=== PATIENT | male | born 1950 | race Caucasian/White ===

== ENCOUNTER → 2018-11-13 | Outpatient (CLI) | payer BC ==
[2018-11-13 09:43] LABS: HGB 15.4 gm/dL (13.0-17.5); MCH 30.2 pg (25.0-35.0); MCHC 32.8 g/dL (31.0-37.0); Mean Platelet Volume 6.2; Platelet Count 218 k/uL (150-450); RBC 5.11 m/uL (4.30-5.90); RDW 13.8 % (11.5-15.5); WBC 7.7 k/uL (3.8-10.6)
[2018-11-13 09:51] LABS: Appearance,Urine Clear (Clear); Bilirubin,Urine Negative (Negative); Blood,Urine Negative (Negative); Color,Urine Yellow; Glucose,Urine (UA) Negative (Negative); Ketones,Urine Negative (Negative); Leukocyte Esterase,Urine Negative (Negative); Nitrite,Urine Negative (Negative); PH, Urine 5.5 (5.0-8.0); Protein,Urine Negative (Negative); Specific Gravity,Urine 1.016 (1.001-1.035); Urobilinogen,Urine <2.0 mg/dL (<2.0)
[2018-11-13 17:46] LABS: Albumin 4.6 g/dL (3.80-4.90); Albumin/Globulin Ratio 2.42 (1.60-3.17); Anion Gap 10.8 mmol/L (4.00-12.00); Calcium 9.4 mg/dL (8.7-10.3); Carbon Dioxide 21.2 mmol/L (21.6-31.8); Globulin 1.9 g/dL (1.6-3.3); LDL Cholesterol,Calculated 72.8 mg/dL (0.0-131.0); Potassium 4.1 mmol/L (3.5-5.5); Total Bilirubin 0.7 mg/dL (0.2-1.2); Total Protein 6.5 g/dL (6.2-8.2); Uric Acid 9.2 mg/dL (3.7-8.7); VLDL Calculation 32.2 mg/dL (5.00-40.00)
== END | disposition home or self-care (01) ==
LOC: LABWHC1 08:41
PROVIDERS: ATTEND Family Medicine
DX: Z00.01 Encounter for general adult medical examination with abnormal findings (principal); E29.1 Testicular hypofunction; M10.9 Gout, unspecified
CPT/HCPCS: 36415; 80053; 80061; 81003; 84153; 84402; 84403; 84550; 85027

== ENCOUNTER 2019-03-23 17:35 | Observation (INO) | payer BC, MEDICARE ==
[2019-03-23] MEDS ORDERED: MAGNESIUM SULFATE-D5W PMX 1 GM in DEXTROSE/WATER 1 100ML.BAG IVPB ONE (18:06)
--- NOTE | 2019-03-23 18:52 | XR ---
EXAMINATION TYPE: XR chest 2V DATE OF EXAM: 03/23/2019 COMPARISON: NONE HISTORY: Irregular heartbeat TECHNIQUE: Frontal and lateral views of the chest are obtained. FINDINGS: There is no heart failure nor confluent pneumonic infiltrate. There is slight coarsening o f interstitial markings. There are chest leads. There is spurring in the thoracic spine. There is no pleural effusion. IMPRESSION: Minimal pulmonary fibrotic changes. No acute lung disease. No heart failure.
[2019-03-23 18:54] LABS: Basophils % (A) 0 %; Eosinophils % (A) 0 %; HCT 41.8 % (39.0-53.0); HGB 14.2 gm/dL (13.0-17.5); Lymphocytes % (A) 15 %; MCH 31.9 pg (25.0-35.0); MCV 93.9 fL (80.0-100.0); Mean Platelet Volume 6.3; Monocytes # (A) 0.8 k/uL (0-1.0); Monocytes % (A) 6 %; Neutrophils % (A) 76 %; Platelet Count 228 k/uL (150-450); RBC 4.45 m/uL (4.30-5.90); RDW 13.6 % (11.5-15.5); WBC 13.1 k/uL (3.8-10.6)
[2019-03-23 19:05] LABS: Albumin 4.1 g/dL (3.5-5.0); Calcium 9.3 mg/dL (8.4-10.2); Magnesium 2.1 mg/dL (1.6-2.3); Partial Thromboplastin Time 24.4 sec (22.0-30.0); Potassium 4.2 mmol/L (3.5-5.1); Prothrombin Time 10.5 sec (9.0-12.0); Total Bilirubin 0.4 mg/dL (0.2-1.3); Total Protein 6.7 g/dL (6.3-8.2)
--- NOTE | 2019-03-23 19:39 | ED ---
Arrhythmia/Palpitations HPI - General Chief Complaint: Arrhythmia/Palpitations Stated Complaint: Irregular Heartbeat Time Seen by Provider: 03/23/19 17:45 Source: patient Mode of arrival: ambulatory Limitations: no limitations - History of Present Illness Initial Comments: The patient is a 69 year old male who presents emergency room with reported chest palpitations. He states they been going on for the past day. He has been on steroids and cough medicine at home because of the an upper respiratory infection. He also states he's suppose to play in a gold tournament this weekend and wanted to get his arthritis "under control". He is concerned that these medications have caused him to have the palpitations. He went into an urgent care where they performed an EKG. They found the patient to be in A. fib. They sent him directly into the emergency room. The patient reports to a history of A. fib once before. States his tarper called it holiday heart syndrome. He was on vacation with friends when he states he "downed a bottle of Baileys". He then had the episode of atrial fibrillation which was transient. He states he was never placed on anticoagulation. He denies associated chest pain. No shortness of breath. Denies a history of coronary disease. Denies ripping or tearing sensation to his back. No nausea, vomiting or diaphoresis. No abdominal pain or changes in his bowel or bladder habits. No fevers or chills. There are no other alleviating, precipitating or modifying factors - Related Data Home Medications Medication Instructions Recorded Confirmed Allopurinol [Zyloprim] 300 mg PO DAILY 03/23/19 03/23/19 Celecoxib [CeleBREX] 200 mg PO DAILY 03/23/19 03/23/19 Methocarbamol [Robaxin] 500 mg PO DAILY 03/23/19 03/23/19 Omeprazole 20 mg PO DAILY 03/23/19 03/23/19 Rosuvastatin Calcium [Crestor] 10 mg PO DAILY 03/23/19 03/23/19 buPROPion HCL [Wellbutrin XL] 150 mg PO BID 03/23/19 03/23/19 Previous Rx's Medication Instructions Recorded Apixaban [Eliquis] 5 mg PO BID #60 tab 03/25/19 Metoprolol Tartrate [Lopressor] 25 mg PO BID #60 tab 03/25/19 Allergies Allergy/AdvReac Type Severity Reaction Status Date / Time Iodinated Contrast- Oral and Allergy Anaphylaxis Verified 03/23/19 18:48 IV Dye Review of Systems ROS Statement: Those systems with pertinent positive or pertinent negative responses have been documented in the HPI. ROS Other: All systems not noted in ROS Statement are negative. Past Medical History Past Medical History: Hyperlipidemia History of Any Multi-Drug Resistant Organisms: None Reported Past Surgical History: No Surgical Hx Reported Past Psychological History: No Psychological Hx Reported Smoking Status: Former smoker Past Alcohol Use History: None Reported Past Drug Use History: None Reported General Exam Limitations: no limitations General appearance: alert, in no apparent distress Head exam: Present: atraumatic, normocephalic, normal inspection Eye exam: Present: normal appearance, PERRL, EOMI. Absent: scleral icterus, conjunctival injection, periorbital swelling ENT exam: Present: normal exam, mucous membranes moist Neck exam: Present: normal inspection. Absent: tenderness, meningismus, lymphadenopathy Respiratory exam: Present: normal lung sounds bilaterally. Absent: respiratory distress, wheezes, rales, rhonchi, stridor Cardiovascular Exam: Present: tachycardia, irregular rhythm, normal heart sounds. Absent: systolic murmur, diastolic murmur, rubs, gallop, clicks GI/Abdominal exam: Present: soft, normal bowel sounds. Absent: distended, tenderness, guarding, rebound, rigid Extremities exam: Present: normal inspection, full ROM, normal capillary refill. Absent: tenderness, pedal edema, joint swelling, calf tenderness Back exam: Present: normal inspection Neurological exam: Present: alert, oriented X3, CN II-XII intact Psychiatric exam: Present: normal affect, normal mood Skin exam: Present: warm, dry, intact, normal color. Absent: rash Course Vital Signs 03/23/19 03/23/19 03/23/19 17:39 18:50 19:10 Temperature 97.8 F Pulse Rate 47 L 80 89 Respiratory 18 14 10 L Rate Blood Pressure 153/77 132/107 O2 Sat by Pulse 96 96 97 Oximetry 03/23/19 03/23/19 03/23/19 19:50 20:20 21:30 Temperature Pulse Rate 87 105 H 85 Respiratory 11 L 11 L 17 Rate Blood Pressure 141/121 126/84 108/82 O2 Sat by Pulse 95 96 97 Oximetry EKG Findings - EKG Comments: EKG Findings:: EKG demonstrates atrial fibrillation with a controlled ventricular rate. Rate of 92. QRS 104. QTC 457. There are no acute ST segment elevations. Medical Decision Making - Medical Decision Making Upon arrival the patient is placed into room 1. He is hooked up to continuous pulse ox and cardiac monitoring. A 12-lead EKG is performed on the patient which demonstrates atrial fibrillation with a controlled ventricular response. Peripheral IV was established. I did provide him with 2 g of magnesium. Laboratory studies were conducted. The patient was sent over for chest x-ray. Upon return of the results I did discuss them with the patient. I did recommend heparinizing the patient for which he did agree. He has no contraindications to heparinization. I did recommend hospital admission for evaluation by cardiology. The patient did agree to this. He was admitted to Dr. Akhtar, who is covering for Dr. Chapa. I did call and discuss the case with him and he did accept admission. Bridging orders are placed. The patient remained in stable condition and was transported to floor - Lab Data Result diagrams: 03/25/19 06:43 03/25/19 06:43 Lab Results 03/23/19 03/23/19 03/23/19 Range/Units 18:20 18:20 18:20 WBC 13.1 H (3.8-10.6) k/uL RBC 4.45 (4.30-5.90) m/uL Hgb 14.2 (13.0-17.5) gm/dL Hct 41.8 (39.0-53.0) % MCV 93.9 (80.0-100.0) fL MCH 31.9 (25.0-35.0) pg MCHC 34.0 (31.0-37.0) g/dL RDW 13.6 (11.5-15.5) % Plt Count 228 (150-450) k/uL Neutrophils % 76 % Lymphocytes % 15 % Monocytes % 6 % Eosinophils % 0 % Basophils % 0 % Neutrophils # 10.0 H (1.3-7.7) k/uL Lymphocytes # 2.0 (1.0-4.8) k/uL Monocytes # 0.8 (0-1.0) k/uL Eosinophils # 0.0 (0-0.7) k/uL Basophils # 0.0 (0-0.2) k/uL PT 10.5 (9.0-12.0) sec INR 1.0 (<1.2) APTT 24.4 (22.0-30.0) sec Sodium 140 (137-145) mmol/L Potassium 4.2 (3.5-5.1) mmol/L Chloride 109 H (98-107) mmol/L Carbon Dioxide 21 L (22-30) mmol/L Anion Gap 10 mmol/L BUN 28 H (9-20) mg/dL Creatinine 1.45 H (0.66-1.25) mg/dL Est GFR (CKD-EPI)AfAm 56 (>60 ml/min/1.73 sqM) Est GFR (CKD-EPI)NonAf 48 (>60 ml/min/1.73 sqM) Glucose 105 H (74-99) mg/dL Calcium 9.3 (8.4-10.2) mg/dL Magnesium 2.1 (1.6-2.3) mg/dL Total Bilirubin 0.4 (0.2-1.3) mg/dL AST 36 (17-59) U/L ALT 37 (21-72) U/L Alkaline Phosphatase 71 (38-126) U/L Troponin I (0.000-0.034) ng/mL Total Protein 6.7 (6.3-8.2) g/dL Albumin 4.1 (3.5-5.0) g/dL TSH 1.120 (0.465-4.680) mIU/L 03/23/19 Range/Units 18:20 WBC (3.8-10.6) k/uL RBC (4.30-5.90) m/uL Hgb (13.0-17.5) gm/dL Hct (39.0-53.0) % MCV (80.0-100.0) fL MCH (25.0-35.0) pg MCHC (31.0-37.0) g/dL RDW (11.5-15.5) % Plt Count (150-450) k/uL Neutrophils % % Lymphocytes % % Monocytes % % Eosinophils % % Basophils % % Neutrophils # (1.3-7.7) k/uL Lymphocytes # (1.0-4.8) k/uL Monocytes # (0-1.0) k/uL Eosinophils # (0-0.7) k/uL Basophils # (0-0.2) k/uL PT (9.0-12.0) sec INR (<1.2) APTT (22.0-30.0) sec Sodium (137-145) mmol/L Potassium (3.5-5.1) mmol/L Chloride (98-107) mmol/L Carbon Dioxide (22-30) mmol/L Anion Gap mmol/L BUN (9-20) mg/dL Creatinine (0.66-1.25) mg/dL Est GFR (CKD-EPI)AfAm (>60 ml/min/1.73 sqM) Est GFR (CKD-EPI)NonAf (>60 ml/min/1.73 sqM) Glucose (74-99) mg/dL Calcium (8.4-10.2) mg/dL Magnesium (1.6-2.3) mg/dL Total Bilirubin (0.2-1.3) mg/dL AST (17-59) U/L ALT (21-72) U/L Alkaline Phosphatase (38-126) U/L Troponin I 0.030 (0.000-0.034) ng/mL Total Protein (6.3-8.2) g/dL Albumin (3.5-5.0) g/dL TSH (0.465-4.680) mIU/L Disposition Clinical Impression: Atrial fibrillation Disposition: ADMITTED IP TO THIS HOSP Condition: Stable Is patient prescribed a controlled substance at d/c from ED?: No Decision to Admit Reason: Admit from EC Decision Date: 03/23/19 Decision Time: 19:49
[2019-03-23] MEDS ORDERED: HEPARIN SODIUM,PORCINE 5,000 UNIT/ML 1 ML VIAL IV PRN (19:47)
[2019-03-23] MEDS ORDERED: HEPARIN SODIUM,PORCINE 5,000 UNIT/ML 1 ML VIAL IV ONE (19:47)
[2019-03-23] MEDS ORDERED: NALOXONE 0.4 MG/ML 1 ML VIAL IV PRN (19:49)
[2019-03-23] MEDS ORDERED: HEPARIN SOD,PORK IN 0.45% NACL 25,000 UNIT in 0.45% NACL 1 250ML.BAG IV SCH (20:00)
[2019-03-23 22:44] VITALS: BMI 34.0
[2019-03-23] MEDS: buPROPion XL 150 MG TAB.ER.24H PO SCH (22:49)
[2019-03-24 07:30] LABS: Basophils % (A) 0 %; Eosinophils # (A) 0.1 k/uL (0-0.7); Eosinophils % (A) 1 %; HCT 41.7 % (39.0-53.0); HGB 13.6 gm/dL (13.0-17.5); Lymphocytes # (A) 3.3 k/uL (1.0-4.8); Lymphocytes % (A) 32 %; MCH 30.7 pg (25.0-35.0); MCHC 32.5 g/dL (31.0-37.0); MCV 94.5 fL (80.0-100.0); Mean Platelet Volume 6.6; Monocytes # (A) 0.7 k/uL (0-1.0); Monocytes % (A) 7 %; Neutrophils # (A) 5.9 k/uL (1.3-7.7); Neutrophils % (A) 58 %; Platelet Count 207 k/uL (150-450); RBC 4.42 m/uL (4.30-5.90); RDW 13.7 % (11.5-15.5); WBC 10.2 k/uL (3.8-10.6)
[2019-03-24] MEDS: ALLOPURINOL 300 MG TAB PO SCH (08:14)
[2019-03-24] MEDS: buPROPion XL 150 MG TAB.ER.24H PO SCH ×2 (08:14→20:12)
[2019-03-24] MEDS: PANTOPRAZOLE 40 MG TABLET PO SCH (08:14)
[2019-03-24] MEDS: ATORVASTATIN 20 MG TAB PO SCH (08:14)
[2019-03-24] MEDS: METHOCARBAMOL 500 MG TAB PO SCH (08:15)
--- NOTE | 2019-03-24 08:20 | P.CRDCN ---
History of Present Illness Consult date: 03/24/19 Requesting physician: Karyn Akhtar Consult reason: atrial fibrillation Chief complaint: A. fib History of present illness: This is a pleasant 69-year-old gentleman who follows regularly with Dr. Susie Schwab in the office. He has a known history of hyperlipidemia, nondiabetic, no hypertension, he denies smoking at present but he does have a history of smoking, patient also has a history of one episode of atrial fibrillation about 14 years ago, at which time he states he had a week and a significant drinking. He converted to sinus rhythm and has not had any problems since. According to the patient, he's been dealing with a cold and upper chest infection for the past one to 2 weeks, he is currently on a Medrol Dosepak, he also took an albuterol inhaler and has been taking some cold medications at home. Patient states that he had noticed palpitations intermittently, which is why he came to the hospital for further evaluation and treatment. The patient states that he played in a golf tournament this weekend, he denies any diaphoresis or shortness of breath, but does state that he noticed palpitations off and on. On presentation here his EKG showed atrial fibrillation with a controlled ventricular response. At present the patient states he does not feel any palpitations however he does continue at this time to be in atrial fibrillation. He states that he does drink at least 2 alcoholic beverages per day and has not drank any more recently than his usual. His chest x-ray on presentation here showed minimal pulmonary fibrotic change with no acute lung disease and no heart failure. I pressure on presentation here was 150/70, heart rate in the 90s, 96% on room air. Blood pressure this morning 132/80, heart rate in the 60s, temperature 98.2. 96% on room air. White blood cell count on arrival 13.2, 10.2 this morning, hemoglobin 13.6, platelet count 207. Sodium 140, potassium 4.2, BUN 28 and creatinine 1.4. Troponin 0.030, 0.028, TSH 1.1. At the time of my examination this morning, patient's main complaint is that he is extremely tired, he states he did not sleep at all through the night last night. Past Medical History Past Medical History: Hyperlipidemia Additional Past Medical History / Comment(s): afib 15 years ago, was able to covert with medication History of Any Multi-Drug Resistant Organisms: None Reported Past Surgical History: No Surgical Hx Reported Past Anesthesia/Blood Transfusion Reactions: No Reported Reaction Past Psychological History: No Psychological Hx Reported Smoking Status: Former smoker Past Alcohol Use History: None Reported Past Drug Use History: None Reported Medications and Allergies Home Medications Medication Instructions Recorded Confirmed Type Allopurinol [Zyloprim] 300 mg PO DAILY 03/23/19 03/23/19 History Celecoxib [CeleBREX] 200 mg PO DAILY 03/23/19 03/23/19 History Methocarbamol [Robaxin] 500 mg PO DAILY 03/23/19 03/23/19 History Omeprazole 20 mg PO DAILY 03/23/19 03/23/19 History Rosuvastatin Calcium [Crestor] 10 mg PO DAILY 03/23/19 03/23/19 History buPROPion HCL [Wellbutrin XL] 150 mg PO BID 03/23/19 03/23/19 History methylPREDNISolone [Medrol Dose See Taper PO DIRECTED 03/23/19 03/23/19 History Pack] Allergies Allergy/AdvReac Type Severity Reaction Status Date / Time Iodinated Contrast- Oral and Allergy Anaphylaxis Verified 03/23/19 18:48 IV Dye Physical Exam Vitals: Vital Signs Temp Pulse Pulse Resp BP BP Pulse Ox 03/24/19 04:00 98.2 F 82 18 132/81 96 03/23/19 23:22 92 18 03/23/19 23:20 98.0 F 67 18 130/87 97 03/23/19 22:34 98.0 F 67 18 130/87 97 03/23/19 21:30 85 17 108/82 97 03/23/19 20:20 105 H 11 L 126/84 96 03/23/19 19:50 87 11 L 141/121 95 03/23/19 19:10 89 10 L 132/107 97 03/23/19 18:50 80 14 96 03/23/19 17:39 97.8 F 47 L 18 153/77 96 Intake and Output 03/23/19 03/24/19 03/24/19 22:59 06:59 14:59 Intake Total 60 62.814 Balance 60 62.814 Intake: Amount of Fluid Infused ( 60 ml) Intake, IV Titration 62.814 Amount Heparin Sod,Pork in 0.45% 62.814 NaCl 25,000 unit In 0.45 % NaCl 1 250ml.bag @ 8.7 UNITS/KG/HR 9.866 mls/hr IV .Q24H [facility] Rx#: [id number] Other: Voiding Method Toilet # Voids 1 1 Weight 113.398 kg 116.9 kg PHYSICAL EXAMINATION: GENERAL: 69-year-old gentleman in no acute distress at the time of my examination HEENT: Head is atraumatic, normocephalic. Pupils equal, round. Sclera anicteric. Conjunctiva are clear. Mucous membranes of the mouth are moist. Neck is supple. There is no elevated jugular venous pressure. No carotid bruit is heard. HEART EXAMINATION: Heart S1 and S2 irregularly irregular CHEST EXAMINATION: Lungs are clear to auscultation and precussion. No chest wall tenderness is noted on palpation or with deep breathing. ABDOMEN: Soft, nontender. Bowel sounds are heard. No organomegaly noted. EXTREMITIES: 2+ peripheral pulses with no evidence of peripheral edema and no calf tenderness noted. NEUROLOGIC patient is awake, alert and oriented 3 . Results 03/24/19 06:20 03/23/19 18:20 Cardiac Enzymes 03/23/19 03/23/19 03/24/19 Range/Units 18:20 18:20 01:12 AST 36 (17-59) U/L Troponin I 0.030 0.028 (0.000-0.034) ng/mL Coagulation 03/23/19 03/24/19 Range/Units 18:20 01:12 PT 10.5 (9.0-12.0) sec APTT 24.4 32.6 H (22.0-30.0) sec CBC 03/23/19 03/24/19 Range/Units 18:20 06:20 WBC 13.1 H 10.2 (3.8-10.6) k/uL RBC 4.45 4.42 (4.30-5.90) m/uL Hgb 14.2 13.6 (13.0-17.5) gm/dL Hct 41.8 41.7 (39.0-53.0) % Plt Count 228 207 (150-450) k/uL Comprehensive Metabolic Panel 03/23/19 Range/Units 18:20 Sodium 140 (137-145) mmol/L Potassium 4.2 (3.5-5.1) mmol/L Chloride 109 H (98-107) mmol/L Carbon Dioxide 21 L (22-30) mmol/L BUN 28 H (9-20) mg/dL Creatinine 1.45 H (0.66-1.25) mg/dL Glucose 105 H (74-99) mg/dL Calcium 9.3 (8.4-10.2) mg/dL AST 36 (17-59) U/L ALT 37 (21-72) U/L Alkaline Phosphatase 71 (38-126) U/L Total Protein 6.7 (6.3-8.2) g/dL Albumin 4.1 (3.5-5.0) g/dL Current Medications Generic Name Dose Route Start Last Admin Trade Name Freq PRN Reason Stop Dose Admin Allopurinol 300 mg 03/24/19 09:00 Zyloprim PO DAILY [facility] Atorvastatin Calcium 20 mg 03/24/19 09:00 Lipitor PO DAILY [facility] Bupropion HCl 150 mg 03/23/19 21:00 03/23/19 22:49 Wellbutrin Xl PO Not Given BID [facility] Heparin Sodium (Porcine) 0 unit 03/23/19 19:47 Heparin IV PER PROTOCOL PRN Low PTT Protocol Heparin Sodium/Sodium Chloride 250 mls @ 9.866 mls/hr 03/23/19 20:00 03/24/19 02:38 25,000 unit/ Sodium Chloride IV 11.7 units/kg/hr .Q24H [facility] 13.268 mls/hr Titration Protocol 8.7 UNITS/KG/HR Methocarbamol 500 mg 03/24/19 09:00 Robaxin PO DAILY [facility] Naloxone HCl 0.2 mg 03/23/19 19:49 Narcan IV Q2M PRN Opioid Reversal Pantoprazole Sodium 40 mg 03/24/19 09:00 Protonix PO DAILY [facility] Intake and Output 03/23/19 03/24/19 03/24/19 22:59 06:59 14:59 Intake Total 60 62.814 Balance 60 62.814 Intake: Amount of Fluid Infused ( 60 ml) Intake, IV Titration 62.814 Amount Heparin Sod,Pork in 0.45% 62.814 NaCl 25,000 unit In 0.45 % NaCl 1 250ml.bag @ 8.7 UNITS/KG/HR 9.866 mls/hr IV .Q24H [facility] Rx#: [id number] Other: Voiding Method Toilet # Voids 1 1 Weight 113.398 kg 116.9 kg 03/24/19 06:20 03/23/19 18:20 EKG Interpretations (text) EKG shows atrial fibrillation with a controlled ventricular response. Assessment and Plan Plan: Assessment and plan #1 atrial fibrillation with controlled ventricular response, paroxysmal, TSH is 1.1 #2 hyperlipidemia #3 daily EtOH use #4 recent upper respiratory infection #5 mild renal insufficiency, likely secondary to mild dehydration Plan Will obtain an echocardiogram with Doppler study. We will also give the patient IV fluids at 75 mL per hour. I did have a discussion with the patient this morning regarding anticoagulation for stroke prevention. We will look into [employer] for coverage for the patient. He is currently on IV heparin. Initiate a small dose of beta liliana. Further recommendations to follow. DNP note has been reviewed, I agree with a documented findings and plan of care. Patient was seen and examined.
[2019-03-24] MEDS: METOPROLOL TARTRATE 25 MG TAB PO SCH ×2 (08:27→20:11)
[2019-03-24] MEDS: APIXABAN 5 MG TAB PO SCH ×2 (10:52→20:12)
[2019-03-24] MEDS: SODIUM CHLORIDE 0.9% 1,000 ML IV SCH (10:52)
--- NOTE | 2019-03-24 12:01 | ECHOF ---
Referral Reason:afib MEASUREMENTS -------- HEIGHT: 180.3 cm WEIGHT: 116.6 kg BP: 132/83 RVIDd: 3.8 cm (< 3.3) IVSd: 1.8 cm (0.6 - 1.1) LVIDd: 4.0 cm (3.9 - 5.3) LVPWd: 1.8 cm (0.6 - 1.1) IVSs: 2.2 cm LVIDs: 2.7 cm LVPWs: 1.9 cm LAESV Index (A-L): 57.70 ml/m Ao Diam: 3.6 cm (2.0 - 3.7) AV Cusp: 2.0 cm (1.5 - 2.6) LA Diam: 4.4 cm (2.7 - 3.8) AR PHT: 367 ms RAP: 5.00 mmHg RVSP: 32.38 mmHg FINDINGS -------- Atrial fibrillation. This was a technically adequate study. The left ventricular size is normal. There is severe concentric left ventricular hypertrophy. Ove rall left ventricular systolic function is low-normal with, an EF between 50 - 55 %. The right ventricle is mild to moderately enlarged. LA is severely dilated >40 ml/m2 The right atrial size is normal. Interatrial and interventricular septum intact. Aortic valve is trileaflet and is mildly thickened. There is mild aortic regurgitation. The mitral valve is normal. Moderate mitral regurgitation is present. The tricuspid valve appears structurally normal. Mild tricuspid regurgitation present. Right vent ricular systolic pressure is normal at < 35 mmHg. There is no pulmonic regurgitation present. The aortic root size is normal. Normal inferior vena cava with normal inspiratory collapse consistent with estimated right atrial pre ssure of 5 mmHg. There is no pericardial effusion. CONCLUSIONS -------- 1. Atrial fibrillation. 2. This was a technically adequate study. 3. The left ventricular size is normal. 4. There is severe concentric left ventricular hypertrophy. 5. Overall left ventricular systolic function is low-normal with, an EF between 50 - 55 %. 6. The right ventricle is mild to moderately enlarged. 7. LA is severely dilated >40 ml/m2 8. The right atrial size is normal. 9. Interatrial and interventricular septum intact. 10. Aortic valve is trileaflet and is mildly thickened. 11. There is mild aortic regurgitation. 12. The mitral valve is normal. 13. Moderate mitral regurgitation is present. 14. The tricuspid valve appears structurally normal. 15. Mild tricuspid regurgitation present. 16. Right ventricular systolic pressure is normal at < 35 mmHg. 17. There is no pulmonic regurgitation present. 18. The aortic root size is normal. 19. Normal inferior vena cava with normal inspiratory collapse consistent with estimated right atrial pressure of 5 mmHg. 20. There is no pericardial effusion. [employer]PERVISOR: Lucy Paredes RDCS
[2019-03-24] MEDS ORDERED: Acetaminophen-Codeine 300-30mg TAB PO PRN (16:52)
[2019-03-24] MEDS ORDERED: IPRATROPIUM-ALBUTEROL 3 ML NEB INHALATION STA (17:05)
[2019-03-24] MEDS: IPRATROPIUM-ALBUTEROL 3 ML NEB INHALATION SCH (20:08)
--- NOTE | 2019-03-24 20:32 | P.HPIM ---
History of Present Illness H&P Date: 03/24/19 Chief Complaint: Palpitation History of presenting complaint: This is a pleasant 69-year-old patient of Dr. Yang. Chronic stable medical conditions include obesity, hyperlipidemia, hyperuricemia, hyperlipidemia. Patient had a prior history of atrial fibrillation possibly related to episode of excessive alcohol abuse the weekend. This was several years ago. Patient n ow presents with 1 week off episodes of palpitation on and off. No dizziness no lightheadedness. No chest pain. No precipitating or relieving factors. Patient in the ER was given IV magnesium as started on IV heparin. Cardiology was consulted. Lopressor was added. Patient feeling better. Review of systems: GEN.: Tired EYES: None HEENT: None NECK: None RESPIRATORY: None CARDIOVASCULAR: As above GASTROINTESTINAL: None GENITOURINARY: None MUSCULOSKELETAL: Occasional pain in the joints LYMPHATICS: None HEMATOLOGICAL: None PSYCHIATRY: None NEUROLOGICAL: None Past medical history: Hyperlipidemia, atrial fibrillation, hyperuricemia, GERD, Social history: Drink some alcohol. Occasional repeat. . Retired. Used to work as a banker Family history: Reviewed, noncontributory to presentation Physical examination: VITAL SIGNS: 97.8, 47, 18, 153/77, 96% room air GENERAL: BMI 34, laying in bed,, comfortable. EYES: Pupils equal. Conjunctiva normal. HEENT: External appearance of nose and ears normal, oral cavity grossly normal. NECK: JVD not raised; masses not palpable. HEART: Irregular heart sounds; no edema. LUNGS: Respiratory rate normal; clear to auscultation. ABDOMEN: Soft, nontender, liver spleen not palpable, no masses palpable. PSYCH: Alert and oriented x3; mood and affect normal. NEUROLOGICAL: Cranial nerves grossly intact; no facial asymmetry, power and sensation grossly intact. LYMPHATICS: No lymph nodes palpable in the axilla and neck Investigations: White count 13.1, hemoglobin 40.2, potassium 4.2, bun 28, creatinine 1.45 Patient's creatinine on October 2018 was 1.4 EKG tracing-personally reviewed by me shows atrial flutter fibrillation Chest x-ray-film personally reviewed by me shows some cardiomegaly 2-D echocardiogram-EF 50-55% right ventricle is mildly to moderately enlarged Assessment: -Atrial flutter fibrillation, with episodes of increased heart rate -Hyperlipidemia -Chronic hyperuricemia -Obesity BMI 34 Plan: Patient was seen by cardiology. On beta liliana eliquis. Care was discussed with the patient. Questions were answered. Patient is put on telemetry. See how he does. We will follow along Past Medical History Past Medical History: Hyperlipidemia Additional Past Medical History / Comment(s): afib 15 years ago, was able to covert with medication History of Any Multi-Drug Resistant Organisms: None Reported Past Surgical History: No Surgical Hx Reported Past Anesthesia/Blood Transfusion Reactions: No Reported Reaction Past Psychological History: No Psychological Hx Reported Smoking Status: Former smoker Past Alcohol Use History: None Reported Past Drug Use History: None Reported Medications and Allergies Home Medications Medication Instructions Recorded Confirmed Type Allopurinol [Zyloprim] 300 mg PO DAILY 03/23/19 03/23/19 History Celecoxib [CeleBREX] 200 mg PO DAILY 03/23/19 03/23/19 History Methocarbamol [Robaxin] 500 mg PO DAILY 03/23/19 03/23/19 History Omeprazole 20 mg PO DAILY 03/23/19 03/23/19 History Rosuvastatin Calcium [Crestor] 10 mg PO DAILY 03/23/19 03/23/19 History buPROPion HCL [Wellbutrin XL] 150 mg PO BID 03/23/19 03/23/19 History methylPREDNISolone [Medrol Dose See Taper PO DIRECTED 03/23/19 03/23/19 History Pack] Allergies Allergy/AdvReac Type Severity Reaction Status Date / Time Iodinated Contrast- Oral and Allergy Anaphylaxis Verified 03/23/19 18:48 IV Dye Physical Exam Vitals: Vital Signs Temp Pulse Pulse Resp BP BP Pulse Ox 03/24/19 16:00 97.7 F 75 18 127/86 94 L 03/24/19 11:51 53 L 03/24/19 11:05 98.0 F 53 L 18 123/94 94 L 03/24/19 08:00 98.2 F 63 18 132/83 96 03/24/19 04:00 98.2 F 82 18 132/81 96 03/23/19 23:22 92 18 03/23/19 23:20 98.0 F 67 18 130/87 97 03/23/19 22:34 98.0 F 67 18 130/87 97 03/23/19 21:30 85 17 108/82 97 03/23/19 20:20 105 H 11 L 126/84 96 03/23/19 19:50 87 11 L 141/121 95 Intake and Output 03/24/19 03/24/19 03/24/19 06:59 14:59 22:59 Intake Total 62.814 118 600 Balance 62.814 118 600 Intake: Intake, IV Titration 62.814 Amount Heparin Sod,Pork in 0.45% 62.814 NaCl 25,000 unit In 0.45 % NaCl 1 250ml.bag @ 8.7 UNITS/KG/HR 9.866 mls/hr IV .Q24H SAMMY Rx#: [id number] Oral 118 600 Other: Voiding Method Toilet # Voids 1 3 Weight 116.9 kg Results CBC & Chem 7: 03/24/19 06:20 03/23/19 18:20 Labs: Abnormal Lab Results - Last 24 Hours (Table) 03/24/19 03/24/19 Range/Units 01:12 09:04 APTT 32.6 H 38.3 H (22.0-30.0) sec Thrombosis Risk Factor Assmnt - Choose All That Apply Any of the Below Risk Factors Present?: Yes Each Factor Represents 1 point: Obesity (BMI >25) Other Risk Factors: Yes Each Risk Factor Represents 2 Points: Age 61-74 years Other congenital or acquired thrombophilia - If yes, enter type in comment: No Thrombosis Risk Factor Assessment Total Risk Factor Score: 3 Thrombosis Risk Factor Assessment Level: Moderate Risk
[2019-03-25] MEDS: SODIUM CHLORIDE 0.9% 1,000 ML IV SCH ×2 (05:32→09:38)
[2019-03-25] MEDS: IPRATROPIUM-ALBUTEROL 3 ML NEB INHALATION SCH ×3 (07:25→14:51)
[2019-03-25 07:32] LABS: Basophils % (A) 0 %; Eosinophils # (A) 0.1 k/uL (0-0.7); Eosinophils % (A) 1 %; HCT 43.8 % (39.0-53.0); HGB 14.4 gm/dL (13.0-17.5); Lymphocytes # (A) 2.9 k/uL (1.0-4.8); Lymphocytes % (A) 29 %; MCHC 32.8 g/dL (31.0-37.0); MCV 94.6 fL (80.0-100.0); Mean Platelet Volume 6.4; Monocytes # (A) 0.8 k/uL (0-1.0); Monocytes % (A) 8 %; Neutrophils # (A) 6.2 k/uL (1.3-7.7); Neutrophils % (A) 61 %; Platelet Count 211 k/uL (150-450); RBC 4.63 m/uL (4.30-5.90); RDW 13.7 % (11.5-15.5); WBC 10.1 k/uL (3.8-10.6)
[2019-03-25 07:53] VITALS: RESP 20
[2019-03-25] MEDS: PANTOPRAZOLE 40 MG TABLET PO SCH (09:27)
[2019-03-25] MEDS: APIXABAN 5 MG TAB PO SCH (09:27)
[2019-03-25] MEDS: ALLOPURINOL 300 MG TAB PO SCH (09:27)
[2019-03-25] MEDS: ATORVASTATIN 20 MG TAB PO SCH (09:27)
[2019-03-25] MEDS: METOPROLOL TARTRATE 25 MG TAB PO SCH (09:27)
[2019-03-25] MEDS: METHOCARBAMOL 500 MG TAB PO SCH (09:28)
[2019-03-25] MEDS: buPROPion XL 150 MG TAB.ER.24H PO SCH (09:28)
[2019-03-25 11:33] VITALS: BP 124/80; PULSE 62; TEMP 97.8
--- NOTE | 2019-03-25 13:11 | P.PN ---
Subjective Progress Note Date: 03/25/19 This is a pleasant 69-year-old gentleman who follows regularly with Dr. Susie Schwab in the office. He has a known history of hyperlipidemia, nondiabetic, no hypertension, he denies smoking at present but he does have a history of smoking, patient also has a history of one episode of atrial fibril lation about 14 years ago, at which time he states he had a week and a significant drinking. He converted to sinus rhythm and has not had any problems since. According to the patient, he's been dealing with a cold and upper chest infection for the past one to 2 weeks, he is currently on a Medrol Dosepak, he also took an albuterol inhaler and has been taking some cold medications at home. Patient states that he had noticed palpitations intermittently, which is why he came to the hospital for further evaluation and treatment. The patient states that he played in a golf tournament this weekend, he denies any diaphoresis or shortness of breath, but does state that he noticed palpitations off and on. On presentation here his EKG showed atrial fibrillation with a controlled ventricular response. At present the patient states he does not feel any palpitations however he does continue at this time to be in atrial fibrillation. He states that he does drink at least 2 alcoholic beverages per day and has not drank any more recently than his usual. His chest x-ray on presentation here showed minimal pulmonary fibrotic change with no acute lung disease and no heart failure. I pressure on presentation here was 150/70, heart rate in the 90s, 96% on room air. Blood pressure this morning 132/80, heart rate in the 60s, temperature 98.2. 96% on room air. White blood cell count on arrival 13.2, 10.2 this morning, hemoglobin 13.6, platelet count 207. Sodium 140, potassium 4.2, BUN 28 and creatinine 1.4. Troponin 0.030, 0.028, TSH 1.1. At the time of my examination this morning, patient's main complaint is that he is extremely tired, he states he did not sleep at all through the night last night. 03/25/2019 Patient seen and examined this morning, feels well, denies any palpitations, no difficulty in breathing. He was noted on the monitor to have a run of 10 nonsustained ventricular tachycardia, last evening. This morning he continues to be in atrial fibrillation however he does not feel it. Heart rate is under adequate control. Blood pressure 124/80 with a heart rate of 60, 97% on room air. White blood cell count 10.1, hemoglobin 14.4, platelet count 211. Sodium 141, potassium 4.0, BUN 23 and creatinine 1.3. Echocardiogram with Doppler study was performed which revealed an ejection fraction of 50-55%, severe concentric LVH noted. Moderate mitral regurgitation. From our perspective, patient may be able to be discharged home today, we'll make him a follow-up appointment in the office with Dr. Susie Schwab. Objective - Vital Signs Vital signs: Vital Signs Temp 97.8 F 03/25/19 11:32 Pulse 62 03/25/19 11:32 Resp 20 03/25/19 11:32 BP 124/80 03/25/19 11:32 Pulse Ox 97 03/25/19 11:32 Intake & Output 03/24/19 03/25/19 03/25/19 18:59 06:59 18:59 Intake Total 118 600 975 Output Total 500 Balance 118 100 975 Weight 117.3 kg Intake: IV 375 Sodium Chloride 0.9% 1, 375 000 ml @ 75 mls/hr IV . [id number] [facility] Rx#:[id number] Oral 118 600 600 Output: Urine 500 Other: Voiding Method Toilet Toilet # Voids 3 - Exam PHYSICAL EXAMINATION: GENERAL: 69-year-old gentleman in no acute distress at the time of my examination HEENT: Head is atraumatic, normocephalic. Pupils equal, round. Sclera anicteric. Conjunctiva are clear. Mucous membranes of the mouth are moist. Neck is supple. There is no elevated jugular venous pressure. No carotid bruit is heard. HEART EXAMINATION: Heart S1 and S2 irregularly irregular CHEST EXAMINATION: Lungs are clear to auscultation and precussion. No chest wall tenderness is noted on palpation or with deep breathing. ABDOMEN: Soft, nontender. Bowel sounds are heard. No organomegaly noted. EXTREMITIES: 2+ peripheral pulses with no evidence of peripheral edema and no calf tenderness noted. NEUROLOGIC patient is awake, alert and oriented 3 - Labs CBC & Chem 7: 03/25/19 06:43 03/25/19 06:43 Labs: Abnormal Lab Results - Last 24 Hours (Table) 03/25/19 Range/Units 06:43 Chloride 109 H (98-107) mmol/L Carbon Dioxide 21 L (22-30) mmol/L BUN 23 H (9-20) mg/dL Creatinine 1.30 H (0.66-1.25) mg/dL Assessment and Plan Plan: Assessment and plan #1 atrial fibrillation with controlled ventricular response, paroxysmal, TSH is 1.1 #2 hyperlipidemia #3 daily EtOH use #4 recent upper respiratory infection #5 mild renal insufficiency, likely secondary to mild dehydration Plan From cardiology's perspective, patient may be able to be discharged home today. We'll make him a follow-up appointment with Dr. Susie Schwab in the office post discharge. DNP note has been reviewed, I agree with a documented findings and plan of care. Patient was seen and examined.
--- NOTE | 2019-03-26 00:26 | P.DS ---
Providers Date of admission: 03/23/19 19:49 Expected date of discharge: 03/25/19 Attending physician: Ortiz Chapa Consults: 03/23/19 19:54 Consult Physician Urgent Consulting Provider: [facility] Consult Reason/Comments: acute palpitations, afib with CVR Do you want consulting provider notified?: Yes [facility] Course: History of presenting complaint: This is a pleasant 69-year-old patient of Dr. Yang. Chronic stable medical conditions include obesity, hyperlipidemia, hyperuricemia, hyperlipidemia. Patient had a prior history of atrial fibrillation possibly related to episode of excessive alcohol abuse the weekend. This was several years ago. Patient now presents with 1 week off episodes of palpitation on and off. No dizziness no lightheadedness. No chest pain. No precipitating or relieving factors. Patient in the ER was given IV magnesium as started on IV heparin. Cardiology was consulted. Lopressor was added. Patient feeling better. Today-heart rate better controlled. Discussed with Dr. Malcolm. Miguel A for [place]. Care was discussed with the patient. Anticoagulation with eliquis started. Consultation: Dr. Malcolm from cardiology Physical examination: VITAL SIGNS: 97.8, 62, 20, 124/80, 97% room air GENERAL: BMI 34, laying in bed,, comfortable. EYES: Pupils equal. Conjunctiva normal. HEENT: External appearance of nose and ears normal, oral cavity grossly normal. NECK: JVD not raised; masses not palpable. HEART: Irregular heart sounds; no edema. LUNGS: Respiratory rate normal; clear to auscultation. Investigations: White count 13.1, hemoglobin 40.2, potassium 4.2, bun 28, creatinine 1.45 Patient's creatinine on October 2018 was 1.4 EKG tracing-personally reviewed by me shows atrial flutter fibrillation Chest x-ray-film personally reviewed by me shows some cardiomegaly 2-D echocardiogram-EF 50-55% right ventricle is mildly to moderately enlarged Assessment: -Atrial flutter fibrillation, with episodes of increased heart rate, now controlled -Hyperlipidemia -Chronic hyperuricemia -Obesity BMI 34 Disposition: Home Patient Condition at Discharge: Stable Plan - Discharge Summary Discharge Rx Participant: No New Discharge Prescriptions: New Apixaban [Eliquis] 5 mg PO BID #60 tab Metoprolol Tartrate [Lopressor] 25 mg PO BID #60 tab Continue Methocarbamol [Robaxin] 500 mg PO DAILY Omeprazole 20 mg PO DAILY Celecoxib [CeleBREX] 200 mg PO DAILY Allopurinol [Zyloprim] 300 mg PO DAILY buPROPion HCL [Wellbutrin XL] 150 mg PO BID Rosuvastatin Calcium [Crestor] 10 mg PO DAILY Discontinued methylPREDNISolone [Medrol Dose Pack] See Taper PO DIRECTED Discharge Medication List Allopurinol [Zyloprim] 300 mg PO DAILY 03/23/19 [History] Celecoxib [CeleBREX] 200 mg PO DAILY 03/23/19 [History] Methocarbamol [Robaxin] 500 mg PO DAILY 03/23/19 [History] Omeprazole 20 mg PO DAILY 03/23/19 [History] Rosuvastatin Calcium [Crestor] 10 mg PO DAILY 03/23/19 [History] buPROPion HCL [Wellbutrin XL] 150 mg PO BID 03/23/19 [History] Apixaban [Eliquis] 5 mg PO BID #60 tab 03/25/19 [Rx] Metoprolol Tartrate [Lopressor] 25 mg PO BID #60 tab 03/25/19 [Rx] Follow up Appointment(s)/Referral(s): Dana Schwab MD [STAFF PHYSICIAN] - 1 Week (Spoke to receptionist scheduler. Office will call with appointment time) Michael Yang MD [Primary Care Provider] - 04/08/19 11:00 am (Sunday -previously scheduled appointment -no earlier appointment available) Patient Instructions/Handouts: A-fib (Atrial Fibrillation) (DC), Safe Use of Anticoagulants (DC) Activity/Diet/Wound Care/Special Instructions: Eliquis copay $40. 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 Discharge Disposition: HOME SELF-CARE
== END 2019-03-25 15:09 | disposition home or self-care (01) ==
LOC: EC 17:35 → 3SCARD 19:49
PROVIDERS: ADMIT Hospitalist; ATTEND Hospitalist
DX: I48.92 Unspecified atrial flutter (principal); I48.91 Unspecified atrial fibrillation; I47.2 Ventricular tachycardia; E78.5 Hyperlipidemia, unspecified; E79.0 Hyperuricemia without signs of inflammatory arthritis and tophaceous disease; I34.0 Nonrheumatic mitral (valve) insufficiency; J06.9 Acute upper respiratory infection, unspecified; N28.9 Disorder of kidney and ureter, unspecified; E86.0 Dehydration; M19.90 Unspecified osteoarthritis, unspecified site; K21.9 Gastro-esophageal reflux disease without esophagitis; Z79.899 Other long term (current) drug therapy; Z87.891 Personal history of nicotine dependence; Z91.041 Radiographic dye allergy status; Z79.1 Long term (current) use of non-steroidal anti-inflammatories (NSAID); E66.9 Obesity, unspecified; Z68.34 Body mass index [BMI] 34.0-34.9, adult
CPT/HCPCS: 96366 ×3; 96376; 96365; 96367; 99285; 36415; 93005; 93306; 80053; 80048; 84443; 83735; 84484 ×2; 85025 ×3; 85610; 85730 ×2; 71046; G0378 ×3; J1644 ×2; J3475

== ENCOUNTER → 2019-04-18 | Outpatient (CLI) | payer BC ==
[2019-04-18 11:39] LABS: HCT 44.9 % (39.0-53.0); HGB 14.8 gm/dL (13.0-17.5); MCH 31.3 pg (25.0-35.0); MCV 94.8 fL (80.0-100.0); Mean Platelet Volume 6.3; Platelet Count 220 k/uL (150-450); RBC 4.74 m/uL (4.30-5.90); WBC 7.3 k/uL (3.8-10.6)
[2019-04-18 11:55] LABS: Potassium 4.7 mmol/L (3.5-5.1)
== END | disposition home or self-care (01) ==
LOC: LABPAT 11:00
PROVIDERS: ATTEND Internal Medicine Interventional Cardiology
DX: Z01.812 Encounter for preprocedural laboratory examination (principal); I10 Essential (primary) hypertension; I48.0 Paroxysmal atrial fibrillation
CPT/HCPCS: 80051; 82565; 82947; 84520; 85027

== ENCOUNTER → 2019-04-25 | Day surgery (SDC) | payer BC ==
[2019-04-23 12:11] VITALS: BMI 33.2
[~2019-04-25] MED LIST: LACTATED RINGERS 1,000 ML IV SCH; PROPOFOL 10 MG/ML 20 ML VIAL IV ONE; SODIUM CHLORIDE 0.9% 1,000 ML IV SCH; SODIUM CHLORIDE 0.9% 500 ML 500 ML IV ONE
--- NOTE | 2019-04-25 07:52 | CE ---
CARDIAC ELECTROPHYSIOLOGY REPORT DATE OF SERVICE: 04/25/2019. PROCEDURE: Electrical Cardioversion. INDICATION: Persistent atrial fibrillation. CLINICAL INFORMATION: Mr. Waldrop is a 69-year-old gentleman with history of hypertension, hyperlipidemia, paroxysmal atrial fibrillation, who was recently hospitalized with atrial fibrillation, moderate ventricular rate. After initiation of oral agents including amiodarone, his rate slowed down, but he did not convert to sinus rhythm and therefore after adequate anticoagulation, he was advised electrical cardioversion and brought in for the procedure electively. PROCEDURE NOTE: Under the influence of ultra short-acting intravenous anesthetic agent, with the anesthesiologist in attendance, a single 200 joule shock was delivered in a synchronized fashion with anterior and posterior patches. Patient converted to sinus rhythm, remained neurologically intact. This was a successful electrical cardioversion. The plan would be to discharge him later on today, once he is awake, ambulatory and has had a meal. I will be seeing him at the office shortly. [id number] / KIMN: [id number] /
[2019-04-25 08:34] VITALS: PULSE 53; RESP 18
[2019-04-25 09:19] VITALS: TEMP 98
[2019-04-25 09:21] VITALS: BP 115/69
== END ==
LOC: CATHCVL 06:07
PROVIDERS: ATTEND Internal Medicine Interventional Cardiology
DX: I48.1 Persistent atrial fibrillation (principal); I10 Essential (primary) hypertension; E78.5 Hyperlipidemia, unspecified; F39 Unspecified mood [affective] disorder; E78.00 Pure hypercholesterolemia, unspecified; F10.11 Alcohol abuse, in remission; Z91.041 Radiographic dye allergy status; Z79.01 Long term (current) use of anticoagulants; Z79.899 Other long term (current) drug therapy; Z72.0 Tobacco use
CPT/HCPCS: 92960; J2704

== ENCOUNTER → 2019-05-28 | Outpatient (CLI) | payer BC ==
[2019-05-28 14:21] LABS: HCT 45.5 % (39.0-53.0); HGB 14.9 gm/dL (13.0-17.5); MCH 31.4 pg (25.0-35.0); MCHC 32.8 g/dL (31.0-37.0); MCV 95.9 fL (80.0-100.0); Mean Platelet Volume 6.2; Platelet Count 213 k/uL (150-450); RBC 4.74 m/uL (4.30-5.90); RDW 14.1 % (11.5-15.5); WBC 14.3 k/uL (3.8-10.6)
[2019-05-28 14:24] LABS: Potassium 4.3 mmol/L (3.5-5.1)
== END | disposition home or self-care (01) ==
LOC: LABPAT 13:46
PROVIDERS: ATTEND Internal Medicine Interventional Cardiology
DX: Z01.812 Encounter for preprocedural laboratory examination (principal); I48.21 Permanent atrial fibrillation
CPT/HCPCS: 36415; 80051; 82565; 84520; 85027

== ENCOUNTER → 2019-06-04 | Day surgery (SDC) | payer BC, MEDICARE ==
[2019-05-30 09:19] VITALS: BMI 33.7
[~2019-06-04] MED LIST changes: -SODIUM CHLORIDE 0.9% 500 ML 500 ML IV ONE
[2019-06-04 06:59] VITALS: TEMP 97.7
--- NOTE | 2019-06-04 08:59 | CE ---
CARDIAC ELECTROPHYSIOLOGY REPORT DATE OF SERVICE: 06/04/2019. PROCEDURE: Electrical cardioversion. INDICATION: Persistent atrial fibrillation in spite of pharmacological efforts. This gentleman has persistent atrial fib, had a previous electrical cardioversion that was subsequently unsuccessful and he went back into atrial fib. He was brought in for the procedure after placing him on amiodarone for nearly 3-4 weeks. Risks, benefits, options and rationale were explained. Under the influence of ultra short-acting intravenous anesthetic agent with the attendance of the anesthesiologist, an initial shock of 250 joules was delivered with anterior and posterior patches in a synchronized fashion. He remained in atrial fibrillation and a subsequent shock was delivered at 300 joules and he converted to sinus rhythm. He remained hemodynamically stable and neurologically intact. This was a successful electrical cardioversion. Once patient is fully awake and ambulatory, he will be discharged. ANNE / KIMN: [id number] /
[2019-06-04 09:02] VITALS: RESP 16
[2019-06-04 11:02] VITALS: BP 126/71; PULSE 66
== END | disposition home or self-care (01) ==
LOC: CATHCVL 06:31
PROVIDERS: ATTEND Internal Medicine Interventional Cardiology
DX: I48.19 Other persistent atrial fibrillation (principal); E78.5 Hyperlipidemia, unspecified; F17.210 Nicotine dependence, cigarettes, uncomplicated; Z79.01 Long term (current) use of anticoagulants; Z79.899 Other long term (current) drug therapy
CPT/HCPCS: 92960; J2704

== ENCOUNTER → 2019-07-09 | Outpatient (CLI) | payer BC ==
[2019-07-09 11:07] LABS: HCT 45.5 % (39.0-53.0); HGB 15.4 gm/dL (13.0-17.5); MCH 31.7 pg (25.0-35.0); MCHC 33.9 g/dL (31.0-37.0); MCV 93.5 fL (80.0-100.0); Platelet Count 244 k/uL (150-450); RBC 4.87 m/uL (4.30-5.90); RDW 13.6 % (11.5-15.5); WBC 8.9 k/uL (3.8-10.6)
[2019-07-09 11:13] LABS: Appearance,Urine Clear (Clear); Bilirubin,Urine Negative (Negative); Blood,Urine Negative (Negative); Color,Urine Yellow; Glucose,Urine (UA) Negative (Negative); Ketones,Urine Negative (Negative); Leukocyte Esterase,Urine Negative (Negative); Nitrite,Urine Negative (Negative); PH, Urine 6.5 (5.0-8.0); Protein,Urine Negative (Negative); Urobilinogen,Urine <2.0 mg/dL (<2.0)
[2019-07-09 17:20] LABS: % Iron Saturation 23.55 (15.00-50.00); African American GFR (CKD) 49.5 (60.0-200.0); Albumin 4.5 g/dL (3.80-4.90); Albumin/Globulin Ratio 2.5 (1.60-3.17); Anion Gap 8.3 mmol/L (4.00-12.00); BUN/Creat Ratio 14.38 Ratio (12.00-20.00); Calcium 9.3 mg/dL (8.7-10.3); Carbon Dioxide 26.7 mmol/L (21.6-31.8); Globulin 1.8 g/dL (1.6-3.3); Non-African American GFR(CKD) 42.7 (60.0-200.0); Phosphorus 4.3 mg/dL (2.4-5.1); Potassium 4.7 mmol/L (3.5-5.5); Total Bilirubin 0.7 mg/dL (0.3-1.2); Total Protein 6.3 g/dL (6.2-8.2); Uric Acid 6.8 mg/dL (3.7-8.7)
[2019-07-09 17:30] LABS: Ferritin 229.5 ng/mL (22.0-322.0)
[2019-07-10 06:14] LABS: Creatinine,Urine Random 177.1 mg/dL
[2019-07-10 06:21] LABS: Total Protein,Urine Random 18.5 mg/dL (0.0-13.5)
== END | disposition home or self-care (01) ==
LOC: LABWHC1 10:07
PROVIDERS: ATTEND Internal Medicine
DX: N17.9 Acute kidney failure, unspecified (principal); R39.9 Unspecified symptoms and signs involving the genitourinary system
CPT/HCPCS: 36415; 80053; 81003; 82043; 82306; 82550; 82570; 82728; 83540; 83550; 83970; 84100; 84156; 84550; 85027; 87086

== ENCOUNTER → 2019-07-11 | Outpatient (CLI) | payer BC ==
--- NOTE | 2019-07-11 10:50 | US ---
EXAMINATION TYPE: US kidneys/renal and bladder DATE OF EXAM: 07/11/2019 COMPARISON: NONE CLINICAL HISTORY: N17.9 Acute kidney failure, unspecified. EXAM MEASUREMENTS: Right Kidney: 12.1 x 4.9 x 4.7 cm Left Kidney: 12.2 x 5.1 x 5.5 cm Post Void Residual Volume: 9.63 mL Patient took a half hour before he was able to void. Right Kidney: Cortical renal thinning. No hydronephrosis or masses seen Left Kidney: Cortical renal thinning. Limited visualization of superior lesion measuring 3.2 x 2.6 x 2.4cm Bladder: wnl Normal Post Void Residual: Yes There is no evidence for hydronephrosis at this point in time. No nephrolithiasis is seen. The urin hien bladder is anechoic. Bilateral ureteral jets are seen. IMPRESSION: 1. No evidence of hydronephrosis or nephrolithiasis in this patient with acute renal failure. 2. Ill-defined renal lesion of the left renal upper pole measuring 3.2 cm. This is suboptimally visua lized. CT abdomen could be performed to evaluate density. 3. Cortical renal thinning bilaterally, sequela of chronic medical renal disease.
== END | disposition home or self-care (01) ==
LOC: RADUSWWP 08:49
PROVIDERS: ATTEND Internal Medicine
DX: N28.89 Other specified disorders of kidney and ureter (principal); N17.9 Acute kidney failure, unspecified
CPT/HCPCS: 76770

== ENCOUNTER → 2019-10-16 | Outpatient (CLI) | payer BC ==
[2019-10-16 16:25] LABS: HCT 47.8 % (39.0-53.0); HGB 15.8 gm/dL (13.0-17.5); MCH 31.5 pg (25.0-35.0); MCV 95.4 fL (80.0-100.0); Mean Platelet Volume 6.4; Platelet Count 345 k/uL (150-450); RBC 5.01 m/uL (4.30-5.90); RDW 14.1 % (11.5-15.5); WBC 10.8 k/uL (3.8-10.6)
[2019-10-16 16:36] LABS: Potassium 4.4 mmol/L (3.5-5.1)
== END | disposition home or self-care (01) ==
LOC: LABPAT 16:11
PROVIDERS: ATTEND Internal Medicine Clinical Cardiac Electrophysiology
DX: Z01.818 Encounter for other preprocedural examination (principal); I48.19 Other persistent atrial fibrillation; E78.00 Pure hypercholesterolemia, unspecified
CPT/HCPCS: 80051; 82565; 82947; 84520; 85027

== ENCOUNTER → 2019-12-26 | Outpatient (CLI) | payer BC | END | disposition home or self-care (01) | LOC: LABWHC1 10:00 | PROVIDERS: ATTEND Internal Medicine Clinical Cardiac Electrophysiology | DX: Z11.59 Encounter for screening for other viral diseases (principal) ==

== ENCOUNTER 2019-12-30 11:40 | Day surgery (SDC) | payer BC ==
[2019-12-29 10:42] VITALS: BMI 34.7
[~2019-12-30 11:40] MED LIST changes: -LACTATED RINGERS 1,000 ML IV SCH; +LIDOCAINE 1% (10MG/ML) FOR IV START INTRADERMA PRN; -PROPOFOL 10 MG/ML 20 ML VIAL IV ONE; -SODIUM CHLORIDE 0.9% 1,000 ML IV SCH
[2019-12-30] MEDS ORDERED: SODIUM CHLORIDE 0.9% 1,000 ML IV ONE (12:53)
[2019-12-30 13:01] LABS: Basophils % (A) 0 %; Eosinophils % (A) 0 %; HCT 43.8 % (39.0-53.0); HGB 14.6 gm/dL (13.0-17.5); Lymphocytes # (A) 0.8 k/uL (1.0-4.8); Lymphocytes % (A) 6 %; MCH 32.1 pg (25.0-35.0); MCHC 33.2 g/dL (31.0-37.0); MCV 96.7 fL (80.0-100.0); Mean Platelet Volume 7.1; Monocytes # (A) 0.4 k/uL (0-1.0); Monocytes % (A) 3 %; Neutrophils # (A) 11.9 k/uL (1.3-7.7); Neutrophils % (A) 90 %; Platelet Count 234 k/uL (150-450); RBC 4.53 m/uL (4.30-5.90); RDW 14.3 % (11.5-15.5); WBC 13.2 k/uL (3.8-10.6)
[2019-12-30] MEDS ORDERED: fentaNYL (PF) 50 MCG/ML 2 ML AMP ONE (13:10)
[2019-12-30] MEDS ORDERED: PROTAMINE SULFATE 10 MG/ML 5 ML VIAL IV ONE (13:10)
[2019-12-30] MEDS ORDERED: HEPARIN SODIUM,PORCINE 10,000 UNIT/ML 1 ML VIAL ONE (13:10)
[2019-12-30] MEDS ORDERED: methylPREDNISolone SOD SUCCI 125 MG/2 ML VIAL ONE ×2 (13:10→13:27)
[2019-12-30] MEDS ORDERED: SUCCINYLCHOLINE CHLORIDE 100 MG/5 ML SYR IV ONE (13:10)
[2019-12-30] MEDS ORDERED: MIDAZOLAM 2 MG/2 ML VIAL ONE (13:10)
[2019-12-30] MEDS ORDERED: PROPOFOL 10 MG/ML 20 ML VIAL IV ONE (13:10)
[2019-12-30 13:15] LABS: Calcium 9.3 mg/dL (8.4-10.2); Potassium 4.5 mmol/L (3.5-5.1)
[2019-12-30] MEDS ORDERED: LIDOCAINE 1% INJ 10MG/ML (20 ML MDV) ONE (13:15)
[2019-12-30] MEDS ORDERED: methylPREDNISolone SOD SUCCI 40 MG/ML 1 ML VIAL IV ONE (13:28)
[2019-12-30] MEDS ORDERED: LIDOCAINE 1% INJ 10MG/ML (20 ML MDV) SQ ONE (14:21)
[2019-12-30] MEDS ORDERED: HEPARIN SOD,PORK IN 0.45% NACL 25,000 UNIT in 0.45% NACL 1 250ML.BAG IV ONE (14:22)
[2019-12-30] MEDS ORDERED: IOPAMIDOL-300 100ML BTL INJ ONE (16:11)
--- NOTE | 2019-12-30 16:46 | P.HPCAR ---
History of Present Illness This is Dr. Hager dictating an H/P on this patient The patient was interviewed and examined IMPRESSION / ASSESSMENT: Persistent symptomatic atrial fibrillation Failed electrical cardioversions symptomatic despite rate controlled atrial fibrillation Preserved left radical systolic function with moderate left atrial enlargement Denies any fever chills chest discomfort shortness of breath orthopnea PND Does complain of an irregularity/palpitations PLAN: Proceed with coronary vein isolation today IV methylprednisone, patient has IV dye ALLERGY Received by mouth prednisone at home HPI Patient complains of an irregularity in the chest 4/palpitations. Denies any chest discomfort dizziness lightheadedness No fever chills cough expectoration Remains in atrial fibrillation line has failed electrical cardioversion treatment for atrial fibrillation and attempts at maintaining sinus rhythm ROS: No fever chills or rigors, no cough, phlegm or expectoration, no nausea, vomiting or diarrhea, no hematuria, dysuria, no musculoskeletal complaints, no strokes or seizures, no skin lesions. EXAMINATION: 118/76. His mercury pulse rate in the 70s afebrile 98.3 Breath sounds are reduced bilaterally no rhonchi no crackles Heart sounds are irregular no murmurs Abdomen soft Extremities warm no edema REVIEW OF LABS, ECG & MEDICAL DATA Hemoglobin 14.6, sodium 137 potassium 4.5 BUN 25 creatinine 1.03 Physical Exam Vitals: Vital Signs Temp Pulse Resp BP Pulse Ox 12/30/19 12:54 98.3 F 77 16 118/76 97 Intake and Output 12/30/19 12/30/19 12/30/19 06:59 14:59 22:59 Intake Total 930 Balance 930 Intake: IV 930 Other: Weight 117.8 kg Past Medical History Past Medical History: Atrial Fibrillation, Cancer, GERD/Reflux, Hyperlipidemia, Hypertension, Osteoarthritis (OA) Additional Past Medical History / Comment(s): hiatal hernia, peripheral neuropathy, basal and squamus skin cancer removed, SEE DR HAGER'S HISTORY AND PHYSICAL FOR CARDIAC HISTORY History of Any Multi-Drug Resistant Organisms: None Reported Past Surgical History: Appendectomy, Orthopedic Surgery, Tonsillectomy Additional Past Surgical History / Comment(s): nerve ablation in back, lt wrist and hand, eye surgeries, CARDIOVERSION X2 Past Anesthesia/Blood Transfusion Reactions: No Reported Reaction Smoking Status: Former smoker - Past Family History Father Family Medical History: Cancer Additional Family Medical History / Comment(s): Lung cancer. Physical Examination Vital Signs Temp Pulse Resp BP Pulse Ox 12/30/19 12:54 98.3 F 77 16 118/76 97 Intake and Output 12/30/19 12/30/19 12/30/19 06:59 14:59 22:59 Intake Total 930 Balance 930 Intake: IV 930 Other: Weight 117.8 kg Results 12/30/19 12:45 12/30/19 12:45 CBC 12/30/19 Range/Units 12:45 WBC 13.2 H (3.8-10.6) k/uL RBC 4.53 (4.30-5.90) m/uL Hgb 14.6 (13.0-17.5) gm/dL Hct 43.8 (39.0-53.0) % Plt Count 234 (150-450) k/uL Comprehensive Metabolic Panel 12/30/19 Range/Units 12:45 Sodium 137 (137-145) mmol/L Potassium 4.5 (3.5-5.1) mmol/L Chloride 107 (98-107) mmol/L Carbon Dioxide 20 L (22-30) mmol/L BUN 25 H (9-20) mg/dL Creatinine 1.03 (0.66-1.25) mg/dL Glucose 130 H (74-99) mg/dL Calcium 9.3 (8.4-10.2) mg/dL Current Medications Generic Name Dose Route Start Last Admin Trade Name Freq PRN Reason Stop Dose Admin Lactated Ringer's 1,000 mls @ 20 mls/hr 12/30/19 05:50 Lactated Ringers IV .Q24H SAMMY Sodium Chloride 1,000 mls @ 50 mls/hr 12/30/19 05:50 Saline 0.9% IV .Q20H SAMMY Lidocaine HCl 0.1 ml 12/30/19 05:50 .Xylocaine 1% Inj (10mg/Ml) For Iv Start INTRADERMA PER PROTOCOL PRN IV Start Intake and Output 12/30/19 12/30/19 12/30/19 06:59 14:59 22:59 Intake Total 930 Balance 930 Intake: IV 930 Other: Weight 117.8 kg Patient Weight 12/31/19 06:59 Weight 117.8 kg 12/30/19 12:45 12/30/19 12:45
--- NOTE | 2019-12-30 16:50 | P.PCN ---
Preoperative Diagnosis: Diagnosis Atrial fibrillation, symptomatic, refractory to therapy, persistent Failed treatment Result No left atrial appendage mass seen on intracardiac echo Successful pulmonary vein isolation of all veins using cryo-ablation Complete entrance block in all 4 veins confirmed No evidence for phrenic nerve injury Esophageal deflection YES Electrical cardioversion with a synchronized shock across the chest YES Procedure details Patient was brought to the EP lab in a fasting state. Written informed consent was obtained prior to the procedure. Procedure performed under general anesthesia After initial muscle relaxant use, muscle relaxants were not given thereafter in order to assess phrenic nerve during procedure. Patient prepped and draped as per protocol Full cryo-set up with standard preparation of the cryoablation tools done. Femoral Venous access obtained on the right and left groins Venous and arterial Sheaths placed. Diagnostic catheters for the high right atrium, phrenic nerve stimulation and pacing, His bundle, RV and coronary sinus placed Intracardiac echo catheter placed. Long sheath placed in the right atrium Left and right transseptal catheterization performed under intracardiac echo guidance. Intravenous heparin with aCT above 300 Later, catheter positioning and balloon positioning in the left atrium, under intracardiac echo guidance Diagnostic EP study with Coronary sinus recording Baseline measurements initially patient was in atrial fibrillation At the end of the procedure sinus cycle length 958 ms, DE interval 266 ms QRS 93 ms, QT 388 ms AH interval 220 ms HV interval 46 ms Transseptal catheterization performed RA pressure 23/17/20 LA pressure 31/16/24 Transseptal catheterization performed with standard sheath. The cryoablation sheath was then placed with an over the wire exchange without any acute complications. All 4 pulmonary veins were isolated in the following sequence: Left superior followed by left inferior followed by right superior followed by right inferior The cryo-ablation balloon was placed at the os of each vein 1.5 mL of IV dye was injected to confirm an occluded vein Goal during cryoablation was to achieve complete occlusion of the pulmonary vein, achieve -30 degrees C at 30 seconds and achieve -40 degrees C at 60 seconds and a time to effect of less than 60-90 seconds, . If not the balloon was repositioned to obtain this result After completion of Cryoblation with durations from 180-240 seconds, entrance block was confirmed with the Attain circular catheter in a roving fashion around the antrum of the pulmonary veins Phrenic nerve pacing was performed from the SVC, right innominate vein area and diaphragm voltage was monitored. Diaphragmatic contractions were also monitored manually for strength of contraction. Parameter goals for each cryo freeze Complete occlusion of the appropriate vein -30 degrees C by 30 seconds -40 degrees C by 60 seconds Minimum between minus 40-55 degrees C Thaw time greater than 10 seconds Balloon visualized by intracardiac echo The esophagus was intubated. Esophageal Temperature monitoring with a CIRCA catheter formed. Esophageal deflection for hypothermia of the esophagus below 30 degrees C Left superior pulmonary vein Complete isolation, entrance block Left inferior pulmonary vein Complete isolation, entrance block Right superior pulmonary vein, during phrenic nerve pacing Complete isolation, entrance block Right inferior pulmonary vein, during phrenic nerve pacing Complete isolation, entrance block At the end of the procedure the Achieve catheter was once again used to check for entrance block Phrenic nerve stimulation was performed to confirm diaphragmatic stimulation the end of the procedure Cine fluoroscopy was performed at the very end of the procedure to confirm movement of both diaphragms with inspiration and expiration Electrical cardioversion was performed to sinus rhythm, 360 J biphasic shock, single shock was successful At the end of the procedure the patient was extubated Heparin was reversed Venous sheaths were removed and hemostasis assured Procedures performed (PVI - CRYO Ablation) Diagnostic EP study CS pacing and recording Left and right transseptal catheterization Catheter the mapping of the tachycardia (NOT 3D mapping) Intracardiac echocardiography Pulmonary vein isolation with transseptal and comprehensive EPS, 75578 Electrical cardioversion with a synchronized shock across the chest [id number]
[2019-12-30] MEDS ORDERED: ACETAMINOPHEN TAB 325 MG TAB PO PRN (16:52)
[2019-12-30] MEDS ORDERED: HYDROcodone/APAP 5-325MG 1 EACH TAB PO PRN (16:52)
--- NOTE | 2019-12-30 17:16 | P.PRLE ---
RE: Navneet Waldrop Dear Narinder Toth underwent successful pulmonary vein isolation for symptomatic persistent atrial fibrillation despite adequate rate control In sinus rhythm he does have a prolonged MA interval of greater than 260 ms I would continue anticoagulation lifelong for now and he will continue to follow with you and Dr. Schwab Thank you for entrusting me with the care of the patient Warm regards Sincerely Kris Hager
[2019-12-30] MEDS: LACTATED RINGERS 1,000 ML IV SCH (17:27)
[2019-12-30] MEDS: SODIUM CHLORIDE 0.9% 1,000 ML IV SCH (17:27)
[2019-12-30] MEDS ORDERED: ACETAMINOPHEN IV (For NPO) 1,000 MG in EMPTY BAG 1 BAG IVPB ONE (18:00)
[2019-12-30] MEDS ORDERED: MELOXICAM 7.5 MG TAB PO PRN (18:31)
[2019-12-30 19:19] VITALS: RESP 18
[2019-12-30] MEDS: buPROPion XL 150 MG TAB.ER.24H PO SCH (20:36)
[2019-12-30] MEDS: APIXABAN 5 MG TAB PO SCH (20:36)
[2019-12-30] MEDS ORDERED: MELATONIN 3 MG TABLET PO PRN (20:41)
[2019-12-30] MEDS ORDERED: BENZOCAINE/MENTHOL LOZENG 1 EACH LOZENGE MUCOUS MEM PRN (23:08)
[2019-12-31] MEDS: SODIUM CHLORIDE 0.9% 1,000 ML IV SCH (06:11)
[2019-12-31] MEDS: LACTATED RINGERS 1,000 ML IV SCH (06:11)
[2019-12-31] MEDS ORDERED: PANTOPRAZOLE 40 MG TABLET PO SCH (07:30)
[2019-12-31 07:37] VITALS: BP 130/85; PULSE 79; TEMP 98
[2019-12-31] MEDS: APIXABAN 5 MG TAB PO SCH (08:28)
[2019-12-31] MEDS ORDERED: ATORVASTATIN 20 MG TAB PO SCH (09:00)
[2019-12-31] MEDS ORDERED: MULTIVITAMINS, THERA 1 EACH TAB PO SCH (09:00)
[2019-12-31] MEDS ORDERED: ALLOPURINOL 300 MG TAB PO SCH (09:00)
[2019-12-31] MEDS ORDERED: CHOLECALCIFEROL 1,000 UNIT TAB PO SCH (09:00)
[2019-12-31] MEDS: buPROPion XL 150 MG TAB.ER.24H PO SCH (09:21)
--- NOTE | 2019-12-31 10:41 | P.DS ---
Providers Attending physician: Kris Hager Primary care physician: [facility] [place] Course: This is a pleasant 69-year-old male s/p EP study and a-fib cryoablation. He is seen and examined laying flat resting comfortably in bed in no acute distress. He is complaining of his throat feeling sore and a dry cough. He states he has not been up out of bed yet. He denies chest pain, shortness of breath, dizziness or palpitations. Repeat EKG this morning reveals a slightly more prolonged AL interval than yesterday. Advised him to hold his beta liliana until he follows up in the office with Dr. Schwab in 1 week. Blood pressure 130/85 heart rate 79 afebrile and maintaining oxygen saturation on room air. Bilateral groin access sites clean, dry and intact. Sutures have been removed per the nurse. Some trace ecchymosis, no bleeding, oozing or hematoma noted. GENERAL: Well-appearing, well-nourished and in no acute distress. NECK: Supple without JVD or thyromegaly. LUNGS: Breath sounds clear to auscultation bilaterally. Respiration equal and unlabored. No wheezes, rales or rhonchi. HEART: Regular rate and rhythm without murmurs, rubs or gallops. S1 and S2 heard. EXTREMITIES: Normal range of motion, no edema. No clubbing or cyanosis. Peripheral pulses intact. Bilateral femoral access sites clean, dry and intact with trace ecchymosis noted. NO bleeding, oozing or hematoma noted. ASSESSMENT Atrial fibrillation s/p cryoablation and cardioversion PLAN Hold beta liliana until follow up appointment with Dr. Schwab. Incentive spirometer to be given and used 5-10 times per hour for the next 48 hours. Advised increasing his activity and ambulation to avoid pneumonia. Follow up with Dr. Schwab in the office in 1-week. Nurse Practitioner note has been reviewed, I agree with a documented findings and plan of care. Patient was seen and examined. Patient Condition at Discharge: Good Plan - Discharge Summary Discharge Rx Participant: No New Discharge Prescriptions: Continue Omeprazole 20 mg PO DAILY Allopurinol [Zyloprim] 300 mg PO DAILY buPROPion HCL [Wellbutrin XL] 150 mg PO BID Rosuvastatin Calcium [Crestor] 10 mg PO DAILY Apixaban [Eliquis] 5 mg PO BID #60 tab Acetaminophen [Tylenol] 325 mg PO Q6HR PRN PRN Reason: Pain Multivitamins, Thera [Multivitamin (formulary)] 1 tab PO DAILY Ubidecarenone [Co Q-10] 100 mg PO DAILY Turmeric Root Extract [Turmeric] 500 mg PO DAILY [place]-3 Fatty Acids [[place]-3] 1,000 mg PO DAILY Cholecalciferol (Vitamin D3) [Vitamin D3] 2,000 unit PO DAILY Celecoxib [CeleBREX] 200 mg PO BID PRN PRN Reason: JOINT PAIN Zinc 50 mg PO DAILY Quercetin 500 mg PO DAILY N-Acetyl Cysteine (Nac) 1 tab PO DAILY Magnesium Oxide [Richardson] 500 mg PO WESA Discontinued Metoprolol Tartrate [Lopressor] 12.5 mg PO QAM Discharge Medication List Allopurinol [Zyloprim] 300 mg PO DAILY 03/23/19 [History] Omeprazole 20 mg PO DAILY 03/23/19 [History] Rosuvastatin Calcium [Crestor] 10 mg PO DAILY 03/23/19 [History] buPROPion HCL [Wellbutrin XL] 150 mg PO BID 03/23/19 [History] Apixaban [Eliquis] 5 mg PO BID #60 tab 03/25/19 [Rx] Acetaminophen [Tylenol] 325 mg PO Q6HR PRN 04/23/19 [History] Cholecalciferol (Vitamin D3) [Vitamin D3] 2,000 unit PO DAILY 04/23/19 [History] Multivitamins, Thera [Multivitamin (formulary)] 1 tab PO DAILY 04/23/19 [History] [place]-3 Fatty Acids [[place]-3] 1,000 mg PO DAILY 04/23/19 [History] Turmeric Root Extract [Turmeric] 500 mg PO DAILY 04/23/19 [History] Ubidecarenone [Co Q-10] 100 mg PO DAILY 04/23/19 [History] Celecoxib [CeleBREX] 200 mg PO BID PRN 10/16/19 [History] Magnesium Oxide [Richardson] 500 mg PO WESA 12/29/19 [History] N-Acetyl Cysteine (Nac) 1 tab PO DAILY 12/29/19 [History] Quercetin 500 mg PO DAILY 12/29/19 [History] Zinc 50 mg PO DAILY 12/29/19 [History] Follow up Appointment(s)/Referral(s): Dana Schwab MD [STAFF PHYSICIAN] - 1 Week (Office will call you with a follow up appointment date and time with Dr. JENNIFER Schwab) Patient Instructions/Handouts: Electrophysiology Study (DC) Activity/Diet/Wound Care/Special Instructions: See Activity Restriction Instructions Discharge Disposition: HOME SELF-CARE
== END 2019-12-31 09:51 | disposition home or self-care (01) ==
LOC: CATHEP 11:40 → 1SOBS 16:41 → CATHEP 12-31 09:51
PROVIDERS: ATTEND Internal Medicine Clinical Cardiac Electrophysiology
DX: I48.19 Other persistent atrial fibrillation (principal); K21.9 Gastro-esophageal reflux disease without esophagitis; E78.5 Hyperlipidemia, unspecified; I10 Essential (primary) hypertension; M19.90 Unspecified osteoarthritis, unspecified site; K44.9 Diaphragmatic hernia without obstruction or gangrene; G62.9 Polyneuropathy, unspecified; Z85.828 Personal history of other malignant neoplasm of skin; Z98.890 Other specified postprocedural states; Z87.891 Personal history of nicotine dependence; Z80.1 Family history of malignant neoplasm of trachea, bronchus and lung; Z79.01 Long term (current) use of anticoagulants; Z79.899 Other long term (current) drug therapy
CPT/HCPCS: 93005; 85347; 92960; 93662; 93609; 93656; 80048; 85025; C1769 ×4; C1894 ×2; C1730 ×2; C1759; C1893; C1733; C1766; J2250; J2720; J1644 ×2; J2920; J2930; J2001; J3010; J0330; J2704; Q9967

== ENCOUNTER → 2020-06-10 | Outpatient (CLI) | payer BC ==
[2020-06-10 12:14] LABS: HCT 46.5 % (39.0-53.0); HGB 15.3 gm/dL (13.0-17.5); MCH 32.2 pg (25.0-35.0); MCV 97.5 fL (80.0-100.0); Mean Platelet Volume 6.5; Platelet Count 282 k/uL (150-450); RBC 4.77 m/uL (4.30-5.90); RDW 13.6 % (11.5-15.5); WBC 7.4 k/uL (3.8-10.6)
== END | disposition home or self-care (01) ==
LOC: LABPAT 10:58
PROVIDERS: ATTEND Internal Medicine Interventional Cardiology
DX: Z01.818 Encounter for other preprocedural examination (principal); I48.19 Other persistent atrial fibrillation
CPT/HCPCS: 80051; 82565; 84520; 85027

== ENCOUNTER 2020-06-17 06:31 | Day surgery (SDC) | payer BC ==
[2020-06-15 10:06] VITALS: BMI 34.0
[~2020-06-17 06:31] MED LIST changes: +LACTATED RINGERS 1,000 ML IV SCH; +SODIUM CHLORIDE 0.9% 1,000 ML IV SCH
[2020-06-17] MEDS ORDERED: SODIUM CHLORIDE 0.9% 500 ML 500 ML IV ONE (06:40)
[2020-06-17] MEDS ORDERED: LIDOCAINE 1% INJ 10MG/ML (20 ML MDV) ONE (07:23)
[2020-06-17] MEDS ORDERED: PROPOFOL 10 MG/ML 20 ML VIAL IV ONE (07:23)
[2020-06-17 07:31] VITALS: RESP 16
[2020-06-17 08:08] VITALS: TEMP 97.1
[2020-06-17] MEDS ORDERED: SODIUM CHLORIDE 0.9% 1,000 ML IV SCH (08:15)
--- NOTE | 2020-06-17 08:20 | P.PCN ---
Date of Procedure: 06/17/20 Preoperative Diagnosis: Atrial fibrillation Postoperative Diagnosis: Conversion to sinus rhythm Procedure(s) Performed: DYLON followed by cardioversion Description of Procedure: DYLON: INDICATION: To assess and rule out any clot in the left atrial appendage before cardioversion for atrial fibrillation CONSENT: . Verbal consent was obtained from the patient PROCEDURE: Patient was brought to the lab in a fasting state. He was prepped and draped in the usual fashion. The throat was sprayed with Cetacaine. Patient was given IV sedation by department of anesthesia. A lubricated Omni probe was introduced in the oropharynx and was advanced into the esophagus. Patient tolerated the procedure well. There were no immediate complications. Color, pulsed and continuous Doppler studies were performed. Saline contrast bubble injection was also performed FINDINGS: . The aortic valve is tricuspid with normal opening excursion. There is evidence of 2+ aortic regurgitation. Aortic root seemed mildly dilated and measures about 3.9 cm. The mitral valve appears to be normal with mild regurgitation. There is biatrial enlargement. The interatrial septum is intact without any discomfort spontaneous shunt. Saline contrast bubble injection did not reveal any crossover of bubbles across the interatrial septum. The left atrial appendage seemed to be clipped. There is no apparent clots in the left atrium. There is smoke noted in the left atrium. Left ventricular function grossly appeared within normal. IMPRESSION: #1. Clear-cut left atrial appendage without any evidence of clot. #2. Smoke in the left atrium #3. Biatrial enlargement. #4. No PFO #5. 2+ aortic regurgitation. #6. Mildly dilated aortic root. #7. Mild mitral regurgitation PLAN: proceed with cardioversion. CARDIOVERSION: After completion of the DYLON, anteroposterior pads were applied. Patient was secured to the bed. A synchronized shock of 200 J was applied. Patient converted to sinus rhythm. No immediate complication. Patient tolerated the procedure well. Impression: Successful conversion to sinus rhythm without any complications. Plan: Patient will monitored for the next 2-3 hours. If stable patient be discharged home. Follow-up with Dr. JENNIFER Schwab. Patient will continue current medical therapy
[2020-06-17 10:10] VITALS: BP 130/84; PULSE 68
== END 2020-06-17 09:35 | disposition home or self-care (01) ==
LOC: CATHCVL 06:31
PROVIDERS: ATTEND Internal Medicine Cardiovascular Disease
DX: I48.19 Other persistent atrial fibrillation (principal); I08.0 Rheumatic disorders of both mitral and aortic valves; M06.9 Rheumatoid arthritis, unspecified; I10 Essential (primary) hypertension; E78.00 Pure hypercholesterolemia, unspecified; E78.5 Hyperlipidemia, unspecified; G62.9 Polyneuropathy, unspecified; Z91.041 Radiographic dye allergy status; Z79.52 Long term (current) use of systemic steroids; Z79.01 Long term (current) use of anticoagulants; Z79.82 Long term (current) use of aspirin; Z79.899 Other long term (current) drug therapy; Z87.891 Personal history of nicotine dependence
CPT/HCPCS: 93312; 93325; 92960; J2001; J2704

== ENCOUNTER 2020-07-03 09:23 | Emergency (ER) | payer BC ==
[2020-07-03 09:40] VITALS: BP 119/81; PULSE 75; RESP 18; TEMP 98.3
--- NOTE | 2020-07-03 10:12 | ED ---
Extremity Problem HPI - General Chief complaint: Extremity Problem,Nontraumatic Stated complaint: Bump/Bruise on right leg Time Seen by Provider: 07/03/20 10:05 Source: patient Mode of arrival: ambulatory Limitations: no limitations - History of Present Illness Initial comments: 70-year-old male patient presents to the emergency department today concerned for blood clot to the right leg. Patient states over the last couple days he developed a knot with an area of bruising on the distal thigh anteriorly. States that he is having some pain around his ankle. Denies any swelling. Does admit to taking Eliquis for history of A. fib but states that he is high risk for blood clots so he wanted to come get checked out. Denies any numbness or tingling to the leg. Denies any known injury at the area of concern. Denies any chest pain or shortness of breath. Patient denies any recent rash, fever, chills, cough, abdominal pain, nausea, vomiting, diarrhea, constipation, back pain, dizziness, weakness, hematuria, dysuria, urinary urgency, urinary frequency, headache, visual changes, or any other complaints. - Related Data Home Medications Medication Instructions Recorded Confirmed Omeprazole 20 mg PO DAILY PRN 03/23/19 06/15/20 Rosuvastatin Calcium [Crestor] 10 mg PO DAILY 03/23/19 06/17/20 allopurinoL [Zyloprim] 300 mg PO DAILY 03/23/19 06/17/20 buPROPion HCL [Wellbutrin XL] 150 mg PO BID 03/23/19 06/17/20 Acetaminophen [Tylenol] 325 mg PO Q6HR PRN 04/23/19 06/15/20 Cholecalciferol (Vitamin D3) 2,000 unit PO DAILY 04/23/19 06/17/20 [Vitamin D3] Multivitamins, Thera [Multivitamin 1 tab PO DAILY 04/23/19 06/17/20 (formulary)] Turmeric Root Extract [Turmeric] 500 mg PO DAILY 04/23/19 06/17/20 Ubidecarenone [Co Q-10] 100 mg PO DAILY 04/23/19 06/17/20 Celecoxib [CeleBREX] 200 mg PO BID PRN 10/16/19 06/17/20 Magnesium Oxide [Richardson] 500 mg PO WESA 12/29/19 06/17/20 N-Acetyl Cysteine (Nac) 1 tab PO DAILY 12/29/19 06/17/20 Quercetin 500 mg PO DAILY 12/29/19 06/17/20 Zinc 50 mg PO DAILY 12/29/19 06/17/20 Metoprolol Tartrate [Lopressor] 12.5 mg PO DAILY 06/15/20 06/17/20 Previous Rx's Medication Instructions Recorded Apixaban [Eliquis] 5 mg PO BID #60 tab 03/25/19 Allergies Allergy/AdvReac Type Severity Reaction Status Date / Time Iodinated Contrast Media Allergy Anaphylaxis Verified 07/03/20 09:40 [Iodinated Contrast- Oral and IV Dye] Review of Systems ROS Statement: Those systems with pertinent positive or pertinent negative responses have been documented in the HPI. ROS Other: All systems not noted in ROS Statement are negative. Past Medical History Past Medical History: Atrial Fibrillation, Cancer, Hyperlipidemia, Osteoarthritis (OA) Additional Past Medical History / Comment(s): hiatal hernia, peripheral neuropathy, basal and squamus skin cancer removed, History of Any Multi-Drug Resistant Organisms: None Reported Past Surgical History: Cardiac Ablation Additional Past Surgical History / Comment(s): nerve ablation in back, lt wrist and hand, eye surgeries, CARDIOVERSION X2 Past Anesthesia/Blood Transfusion Reactions: No Reported Reaction Past Psychological History: Anxiety Smoking Status: Never smoker Past Alcohol Use History: Occasional Past Drug Use History: Marijuana - Past Family History Father Family Medical History: Cancer Additional Family Medical History / Comment(s): Lung cancer. General Exam Limitations: no limitations General appearance: alert, in no apparent distress, other (This is a well- developed, well-nourished adult male patient in no acute distress. Vital signs upon presentation are temperature 98.3F, pulse 75, respirations 18, blood pressure 119/81, pulse ox 97% on room air.) Eye exam: Present: normal appearance, PERRL, EOMI. Absent: scleral icterus, conjunctival injection, periorbital swelling ENT exam: Present: normal exam, normal oropharynx, mucous membranes moist Respiratory exam: Present: normal lung sounds bilaterally. Absent: respiratory distress, wheezes, rales, rhonchi, stridor Cardiovascular Exam: Present: regular rate, normal rhythm, normal heart sounds. Absent: systolic murmur, diastolic murmur, rubs, gallop, clicks Extremities exam: Present: full ROM, normal capillary refill, other (There is area of ecchymosis with a small mobile mass over the anterior distal thigh. No leg swelling. skin is otherwise pink, warm, dry. Cap refills less than 3 seconds. Pulses 2+ and equal bilaterally). Absent: normal inspection, tenderness, pedal edema, joint swelling, calf tenderness Neurological exam: Present: alert, oriented X3, CN II-XII intact Psychiatric exam: Present: normal affect, normal mood Skin exam: Present: warm, dry, intact, normal color. Absent: rash Course Vital Signs 07/03/20 09:37 Temperature 98.3 F Pulse Rate 75 Respiratory 18 Rate Blood Pressure 119/81 O2 Sat by Pulse 97 Oximetry Medical Decision Making - Medical Decision Making 70-year-old male patient percents into the emergency department today for evaluation of a lump to the right anterior thigh. Physical examination did reveal an area and ecchymosis with a soft mobile mass noted to the right anterior thigh distally. Neurovascular status is otherwise intact. Ultrasound was obtained, no evidence for DVT, Dr. Prince did report on a Rouleaux flow pattern in the leg. Patient does take Eliquis. He'll be discharged to follow- up with his primary care physician for further evaluation of this. Return parameters were discussed in detail. He verbalizes understanding and agrees with this plan. - Radiology Data Radiology results: report reviewed, image reviewed Ultrasound of the right lower extremity was obtained. Report was reviewed in its entirety. Impression by Dr. Prince shows no evidence for DVT within the right lower extremity image of the right to the upper calf. There is a Rouleaux flow pattern noted throughout, correlate clinically. Disposition Clinical Impression: Hematoma of right thigh Disposition: HOME SELF-CARE Condition: Good Instructions (If sedation given, give patient instructions): Hematoma (ED) Additional Instructions: Follow-up through primary care physician for recheck in 1-2 days. Return to the emergency department immediately for any new, worsening, or concerning symptoms. Is patient prescribed a controlled substance at d/c from ED?: No Referrals: Michael Yang MD [Primary Care Provider] - 1-2 days Time of Disposition: 11:06
--- NOTE | 2020-07-03 10:53 | US ---
EXAMINATION TYPE: US venous doppler duplex LE RT DATE OF EXAM: 07/03/2020 10:35 AM COMPARISON: None CLINICAL HISTORY: Separate 1-year-old male Right leg pain/swelling concern for DVT. SIDE PERFORMED: Right TECHNIQUE: The lower extremity deep venous system is examined utilizing real time linear array sonog rafa with graded compression, doppler sonography and color-flow sonography. VESSELS IMAGED: Common Femoral Vein Deep Femoral Vein Greater Saphenous Vein * Femoral Vein Popliteal Vein Proximal Calf Veins (* superficial vessels) Patient on Eloquis. Rouleaux flow pattern noted throughout. Right Leg: Negative for DVT IMPRESSION: No evidence for DVT within the right lower extremity imaged from the groin to the upper calf. There i s a Rouleaux flow pattern noted throughout, clinically correlate.
== END 2020-07-03 11:19 | disposition home or self-care (01) ==
LOC: EC 09:23
DX: S70.11XA Contusion of right thigh, initial encounter (principal); I48.91 Unspecified atrial fibrillation; E78.5 Hyperlipidemia, unspecified; F41.9 Anxiety disorder, unspecified; Z79.01 Long term (current) use of anticoagulants; Z79.899 Other long term (current) drug therapy; Z91.041 Radiographic dye allergy status; Z85.828 Personal history of other malignant neoplasm of skin; X58.XXXA Exposure to other specified factors, initial encounter
CPT/HCPCS: 99283

== ENCOUNTER → 2020-08-16 | Outpatient (CLI) | payer BC ==
[2020-08-16 10:53] VITALS: BP 112/79; PULSE 71; RESP 18; TEMP 98
--- NOTE | 2020-08-16 19:58 | P.PAINCN ---
History of Present Illness - Reason for Consult Consult date: 08/16/20 Low back pain - Chief Complaint Low back pain - History of Present Illness 69-year-old male presents as an initial consult with a chief complaint of low back pain. In the past she's had previous bilateral lumbar radio frequency ablations of the L2 to L5 medial branches. He presents requesting a repeat of radio frequency ablation. He denies any negative effects from the procedure, he states that he gets near complete relief with the RFA. Today his pain is an 8 out of 10 in severity mostly across his low back without any radicular symptoms into his lower extremities. Pain is typically worse in the morning and in the evening. In the morning moving around and getting active helps alleviate his pain but it becomes worse by early afternoon. He states by the end of the day he is extremely stiff at times unable to even get out of a sitting position. He takes medication [id number] E the pain with minimal effect. He denies any bowel or bladder incontinence, or saddle anesthesia. Review of Systems 14 point review of systems reviewed and negative except as mentioned per HPI Past Medical History Past Medical History: Atrial Fibrillation, Cancer, Hyperlipidemia, Osteoarthritis (OA) Additional Past Medical History / Comment(s): hiatal hernia, peripheral neuropathy, basal and squamus skin cancer removed, History of Any Multi-Drug Resistant Organisms: None Reported Past Surgical History: Cardiac Ablation Additional Past Surgical History / Comment(s): nerve ablation in back, lt wrist and hand, eye surgeries, CARDIOVERSION X2 Past Anesthesia/Blood Transfusion Reactions: No Reported Reaction Past Psychological History: Anxiety Smoking Status: Former smoker Past Alcohol Use History: Occasional Additional Past Alcohol Use History / Comment(s): STARTED SMOKING AT AGE 18 QUIT AT AGE 31 SMOKED 1 - 1/2 PPD , DRINKS 2 DRINKS PER DAY Past Drug Use History: Marijuana Additional Drug Use History / Comment(s): RARE OCCASION - Past Family History Father Family Medical History: Cancer Additional Family Medical History / Comment(s): Lung cancer. Medications and Allergies Home Medications Medication Instructions Recorded Confirmed Type Omeprazole 20 mg PO DAILY PRN 03/23/19 06/15/20 History Rosuvastatin Calcium [Crestor] 10 mg PO DAILY 03/23/19 06/17/20 History allopurinoL [Zyloprim] 300 mg PO DAILY 03/23/19 06/17/20 History buPROPion HCL [Wellbutrin XL] 150 mg PO BID 03/23/19 06/17/20 History Apixaban [Eliquis] 5 mg PO BID #60 tab 03/25/19 06/17/20 Rx Acetaminophen [Tylenol] 325 mg PO Q6HR PRN 04/23/19 06/15/20 History Cholecalciferol (Vitamin D3) 2,000 unit PO DAILY 04/23/19 06/17/20 History [Vitamin D3] Multivitamins, Thera [Multivitamin 1 tab PO DAILY 04/23/19 06/17/20 History (formulary)] Turmeric Root Extract [Turmeric] 500 mg PO DAILY 04/23/19 06/17/20 History Ubidecarenone [Co Q-10] 100 mg PO DAILY 04/23/19 06/17/20 History Celecoxib [CeleBREX] 200 mg PO BID PRN 10/16/19 06/17/20 History Magnesium Oxide [Richardson] 500 mg PO WESA 12/29/19 06/17/20 History N-Acetyl Cysteine (Nac) 1 tab PO DAILY 12/29/19 06/17/20 History Quercetin 500 mg PO DAILY 12/29/19 06/17/20 History Zinc 50 mg PO DAILY 12/29/19 06/17/20 History Metoprolol Tartrate [Lopressor] 12.5 mg PO DAILY 06/15/20 06/17/20 History Allergies Allergy/AdvReac Type Severity Reaction Status Date / Time Iodinated Contrast Media Allergy Anaphylaxis Verified 07/03/20 09:40 [Iodinated Contrast- Oral and IV Dye] Physical Exam Vitals: Intake and Output 08/15/20 08/16/20 08/16/20 22:59 06:59 14:59 Other: Weight 112.491 kg Physical exam: Gen: A&O 3, NAD, normal BMI HEENT: Atraumatic, normocephalic, pupils equal and reactive to light Integ: No skin abnormalities or lesions noted CVS: Regular rate and rhythm, adequate peripheral pulses Pulmn: Nonlabored, no wheezing Lumbar spine: Palpation: No tenderness to palpation Inspection: No deformities or scoliosis Range of motion: Pain with flexion at 30 and extension -10. Facet loading: + Bilateral KRISTINA test: Negative bilateral Reflexes: 2/2 bilateral knee and ankle Neuromuscular: Sensation: Intact from L1-S1 Motor: 5/5 hip flexion, 5/5 knee extension, 5/5 (EHL), 5/5 Dorsiflexion, 5/5 Plantar Flexion bilateral No pain with hip range of motion Gait: No gait abnormalities, no assist device utilized Results Results: MRI of the lumbar spine performed in July 2018 reveals a small tear L5-S1. Anterior listhesis at L4 and L5. Worsening facet arthrosis at L4 5, and L5-S1. Disc bulging at L3-L4. There is moderate right L4 narrowing, and mild to moderate right L5 narrowing. There is moderate left L4 and L5 narrowing. Facet arthrosis at L1-L2. Severe arthrosis at L2-L3 and L3-L4. There is central canal narrowing at L4-L5 with disc bulging and severe arthrosis. At L5-S1 there is disc bulging with severe arthrosis. Assessment and Plan Assessment: 1. Lumbar spondylosis 2. Lumbar degenerative disc disease Plan: 1. We will repeat patient's bilateral lumbar radio efficacy ablation of the L2, L3, L4, L5 medial branches. The risks and benefits of the procedure were discussed with the patient and he wishes to proceed. PQRS Measure Charge Sheet PQRS Narrative: Smoking Status Former smoker Pain Intensity [Lower Back] 6 Hx Alcohol Use (MH) Yes Home Medications: Ambulatory Orders Omeprazole 20 mg PO DAILY PRN 03/23/19 Rosuvastatin Calcium [Crestor] 10 mg PO DAILY 03/23/19 allopurinoL [Zyloprim] 300 mg PO DAILY 03/23/19 buPROPion HCL [Wellbutrin XL] 150 mg PO BID 03/23/19 Apixaban [Eliquis] 5 mg PO BID #60 tab 03/25/19 Acetaminophen [Tylenol] 325 mg PO Q6HR PRN 04/23/19 Cholecalciferol (Vitamin D3) [Vitamin D3] 2,000 unit PO DAILY 04/23/19 Multivitamins, Thera [Multivitamin (formulary)] 1 tab PO DAILY 04/23/19 Turmeric Root Extract [Turmeric] 500 mg PO DAILY 04/23/19 Ubidecarenone [Co Q-10] 100 mg PO DAILY 04/23/19 Celecoxib [CeleBREX] 200 mg PO BID PRN 10/16/19 Magnesium Oxide [Richardson] 500 mg PO WESA 12/29/19 N-Acetyl Cysteine (Nac) 1 tab PO DAILY 12/29/19 Quercetin 500 mg PO DAILY 12/29/19 Zinc 50 mg PO DAILY 12/29/19 Metoprolol Tartrate [Lopressor] 12.5 mg PO DAILY 06/15/20
== END | disposition home or self-care (01) ==
LOC: PNWHC3 10:28
PROVIDERS: ATTEND Anesthesiology
DX: M51.36 Other intervertebral disc degeneration, lumbar region (principal); M47.816 Spondylosis without myelopathy or radiculopathy, lumbar region; Z79.899 Other long term (current) drug therapy; Z79.891 Long term (current) use of opiate analgesic; Z91.041 Radiographic dye allergy status; Z87.891 Personal history of nicotine dependence
CPT/HCPCS: 99211

== ENCOUNTER → 2020-09-03 | Day surgery (SDC) | payer BC ==
[2020-09-01 13:45] VITALS: BMI 31.4
[~2020-09-03] MED LIST changes: +HYDROmorphone 0.5 MG/0.5 ML SYRINGE IVP PRN; +LIDOCAINE 1% (10MG/ML) FOR IV START INTRADERMA ONE; -LIDOCAINE 1% (10MG/ML) FOR IV START INTRADERMA PRN; +MIDAZOLAM 2 MG/2 ML VIAL IV PRN; +MIDAZOLAM 2 MG/2 ML VIAL ONE; +ROPIVACAINE 5MG/ML 20ML VIAL ONE; -SODIUM CHLORIDE 0.9% 1,000 ML IV SCH; +fentaNYL (PF) 50 MCG/ML 2 ML AMP ONE; +methylPREDNISolone ACETATE 40 MG/ML 1 ML VIAL ONE
[2020-09-03 13:45] VITALS: TEMP 97.2
--- NOTE | 2020-09-03 15:07 | P.PCN ---
Date of Procedure: 09/03/20 Procedure(s) Performed: PREOPERATIVE DIAGNOSIS: 1-Lumbar Spondylosis with Facet Arthropathy without myelopathy. 2- Lumber degenerative disc disease. POSTOPERATIVE DIAGNOSIS: 1- Lumbar Spondylosis with Facet Arthropathy without myelopathy. 2- Lumber degenerative disc disease. PROCEDURES : Bilateral Radiofrequency thermocoagulation, L3 , L4 , and L5 medial branch, with fluoroscopic guidance (fluoroscopy images available in the radiology department) ( to denervate the facet joint at L4-5 ,and L5-S1 levels ) ANESTHESIA: Monitored anesthesia care, provided by anesthesia department EBL: Minimal PROCEDURE INDICATION: The patient with low back pain secondary to lumbar facet arthropathy who had more than 50% relief of her pain with previous diagnostic lumbar medial branch block with bupivacaine, and patient had RFA of the medial branch lumbar area but different facility and he is here today to have a repeat RFA of the medial branch lumbar area. PROCEDURE DESCRIPTION / TECHNIQUE: The patient was seen and identified in the preoperative area. Risks, benefits, complications, including but not limited to risk of infection ,bleeding , allergic reactions to the medications and no complete pain releife , and alternatives were discussed with the patient, the patient agreed to proceed with the procedure and signed the consent. IV was started. Vital signs remained stable throughout the procedure. Patient was taken to the OR and time out was completed. The patient was placed in the prone position on the procedure table. The lumber area was prepped and draped in the usual sterile fashion. . Vital signs were closely monitored during the procedure .IV sedation was used during the procedure to decrease patients anxiety. Using AP and then oblique fluoroscopy, the ``eye of the Trae dog corresponding to the connection between the superior and transverse articular processes of right L3, L4, and L5 were identified, marked, and localized with 1% lidocaine. Subsequently, a 18 [id number] radiofrequency cannula with a 10- mm active tip was advanced guided by fluoroscopy to each of the``eyes of the Trae dog at right L3, L4, and L5. Each site then underwent sensory testing at 50 Hz and 0 to 1 volt and motor testing at 2.5 Hz and 0 to 3 volt with local stimulation, but no radicular symptoms down the legs. Thereafter each sites underwent radiofrequency thermocoagulation at 80 degrees celsius for 90 seconds after injecting 0.5 ml of PF Ropivacaine 1ml, then after the thermocoagulation done , 1 ml of the block solution containing Depo-Medrol 20 mg and 3 ml of Ropivacaine 0.5% was injected at the right L3 , L4 , and L5 , levels after negative aspiration of CSF and blood and with no paresthesias. Cannulas were retracted while injecting lidocaine 1% until the needle is out. The same procedure was repeated at the level of Left L3, L4, and L5 levels. At the end of the procedure, the skin was cleansed and bandages were applied. COMPLICATIONS: No acute complications. DISPOSITION / PLANS: The patient was placed in a supine position and transferred to the recovery area in a stable condition for observation and was discharged from the recovery room after meeting discharge criteria. Home discharge instructions given to the patient by the staff. The patient was reexamined prior to discharge. The patient will schedule a follow up in the clinic in 2-4 weeks. Patient was scheduled to have RFA of the medial branch at L2, L3, L4, L5 (4 level ,to denervate the facet joints at L3 4, L4 5, L5-S1,, but his insurance with only 3 levels, for this reason we ended up doing RFA of the facet joints at L4 5 and L5-S1 . Patient stoped ELEQUIS more than a week ago.
[2020-09-03 15:10] VITALS: RESP 17
[2020-09-03 15:19] VITALS: BP 130/66; PULSE 82
--- NOTE | 2020-09-03 15:22 | FL ---
EXAMINATION TYPE: FL guided pain mgmt statistic DATE OF EXAM: 09/03/2020 HISTORY: PAIN MANAGEMENT FL DR. HURST SUPERVISED USE OF COREEN FOR A RADIO FREQ LUMBAR FL TIME OF 0.21 MINS
== END ==
LOC: ORPAIN 13:12
PROVIDERS: ATTEND Specialist
DX: M47.816 Spondylosis without myelopathy or radiculopathy, lumbar region (principal); M51.36 Other intervertebral disc degeneration, lumbar region; I25.10 Atherosclerotic heart disease of native coronary artery without angina pectoris; I10 Essential (primary) hypertension; I48.91 Unspecified atrial fibrillation; E78.5 Hyperlipidemia, unspecified; K21.9 Gastro-esophageal reflux disease without esophagitis; Z98.890 Other specified postprocedural states; Z91.041 Radiographic dye allergy status; Z79.899 Other long term (current) drug therapy; Z79.1 Long term (current) use of non-steroidal anti-inflammatories (NSAID); Z79.01 Long term (current) use of anticoagulants
CPT/HCPCS: 64635; 64636; J2250; J1030; J3010; J2795

== ENCOUNTER → 2020-09-22 | Outpatient (CLI) | payer BC ==
[2020-09-22 13:18] VITALS: BP 159/78; PULSE 72; RESP 18; TEMP 97.8
--- NOTE | 2020-09-22 13:42 | P.PN ---
Subjective Progress Note Date: 09/22/20 This is a follow-up visit for this 71 years old male with a chronic history of severe low back pain, his lan with lumbar spondylosis with lumbar facet arthropathy without myelopathy, recently we have done RFA of the medial branch lumbar area bilaterally, patient get excellent pain relief after the RFA but did before yesterday he fell on ice, and he started having severe low back pain, and he had severe muscle spasm in the lumbar paraspinal muscles, he denies any motor or sensory deficit he denies any fever or night sweats. Denies any change in bowel movement or urination, and he reported that the pain is very intense localized in the low back area, interfered with his ability to sleep and ability to function. Objective - Vital Signs Vital signs: Vital Signs Temp 97.8 F 09/22/20 13:14 Pulse 72 09/22/20 13:14 Resp 18 09/22/20 13:14 BP 159/78 09/22/20 13:14 Pulse Ox 95 09/22/20 13:14 - Exam Physical Examinations : -Constitutiona : Cooperative , not in acute distress . -HEENT : nech : supple , no Lymphadenopathy , normal thyroid size . : eyes : no ptosis , no icterus, no photophobia . - neurologic : Cranial nerve II to XII intact , no focal neurological deffecit . -psychatric : alert , oriented X 3 , appropriate affect , intact judgment and insight . -Lymphatic : no Lymphadenopathy . - musculoskeltal : Lumber spine moter stegnth lower extremities ,thigh and legs 5/5 Right side , 5/5 Left side Multiple trigger point identified in the lumbar paraspinal muscles bilaterally, upper lumbar area Assessment and Plan Plan: Assessment and plan=1-lumbar spondylosis with lumbar facet arthropathy without myelopathy Status post RFA with limited branch lumbar area 2-myofascial pain syndrome lumbar paraspinal muscles, started after he fell 2 days ago Patient could benefit from NSAID (13 800 mg every 8 hours when necessary ) Patient could benefit from muscle relaxant Flexeril 10 mg one by mouth every morning, one by mouth every when necessary 2 tablets daily at bedtime, he'll follow up in the pain clinic when necessary - PQRS measures = - Patient's medications are documented in the chart. -Tobacco use is negative and counseling.Given. -Patient's has received pneumococcal vaccine. -Advanced care planning discussed, patient not eligible. -Opiate contract not signed. -Pain positive and follow-up visit/procedure is scheduled. -Patient's blood pressure measured [ 159/78 ] , and documented in the record ,and patient will follow up with the primary care. -Patient's weight was measured and body mass index [33 ] above the normal limits and counseling was done. and patient instructed to follow-up with the primary care physician. -Patient was not identified as an unhealthy alcohol user Time with Patient: Less than 30
== END | disposition home or self-care (01) ==
LOC: PNWHC3 12:45
PROVIDERS: ATTEND Specialist
DX: M79.18 Myalgia, other site (principal); M47.816 Spondylosis without myelopathy or radiculopathy, lumbar region
CPT/HCPCS: 99211

== ENCOUNTER → 2021-05-05 | Outpatient (CLI) | payer BC ==
[2021-05-06 05:38] LABS: Prostate Specific Antigen 6.5 ng/mL (0.00-6.50)
== END | disposition home or self-care (01) ==
LOC: LABWHC1 14:56
PROVIDERS: ATTEND Radiology Radiation Oncology
DX: C61 Malignant neoplasm of prostate (principal)
CPT/HCPCS: 36415; 84153; 84403

== ENCOUNTER → 2021-06-15 | Outpatient (CLI) | payer BC ==
--- NOTE | 2021-06-15 14:39 | XR ---
EXAMINATION TYPE: XR cervical spine limited, 4 views DATE OF EXAM: 06/15/2021 Comparison: None Clinical History: 71-year-old male M54.2 Findings: Degenerative change at the C1 dens articulation. No predental space widening or prevertebral soft tis eli swelling. Facet and uncovertebral joint arthropathy mid to lower cervical spine. Degenerative gra de 1 anterolisthesis C6-C7. Normal odontoid view. Mild multilevel degenerative disc disease with dis narrowing. Of note, there is a very large anterior disc ossified complex that C3-C4 which impinges on the social media content manager ior wall of the hypopharynx. Impression: 1. Moderate to advanced facet and uncovertebral joint arthropathy. Degenerative grade 1 anterolisthes is C6-C7. 2. Mild multilevel degenerative disc disease but with a very large anterior disc osteophyte complex a t C3-C4 impinging onto the posterior wall and probably symptomatically narrowing the hypopharynx. Cli nically correlate.
== END | disposition home or self-care (01) ==
LOC: RADXRMAIN 11:26
PROVIDERS: ATTEND Student in an Organized Health Care Education/Training Program
DX: M50.31 Other cervical disc degeneration, high cervical region (principal); M47.812 Spondylosis without myelopathy or radiculopathy, cervical region
CPT/HCPCS: 72040

== ENCOUNTER → 2021-06-15 | Outpatient (CLI) | payer BC ==
[2021-06-15 10:35] VITALS: BP 124/87; PULSE 74; RESP 18
[2021-06-15 10:42] VITALS: TEMP 96.4
--- NOTE | 2021-06-15 12:15 | P.PN ---
Subjective Progress Note Date: 06/15/21 This is a follow-up visit for this 71 years old male with a chronic history of severe low back pain, his lan with lumbar spondylosis with lumbar facet arthropathy without myelopathy. In August we have done RFA of the medial branch lumbar area bilaterally, patient get excellent pain relief after the RFA. He will like to schedule a repeat radiofrequency ablation in August 2021. Today's complaining of neck pain. This is benign going for several years now. He reports its greater on the right side than the left. Pain increases with activity and twisting of his neck. Better with rest and medication. He rates his pain as 6 or 7 out of 10 currently. In the past for treatments he takes Billie ebrex, has physical therapy, and continues to work out at gym 3-4 times a week. Denies any change in bowel movement or urination, and he reported that the pain is very intense localized in the low back area, interfered with his ability to sleep and ability to function. Objective - Exam Physical Examinations : -Constitutiona : Cooperative , not in acute distress . -HEENT : nech : supple , no Lymphadenopathy , normal thyroid size . : eyes : no ptosis , no icterus, no photophobia . - neurologic : Cranial nerve II to XII intact , no focal neurological deffecit . -psychatric : alert , oriented X 3 , appropriate affect , intact judgment and insight . -Lymphatic : no Lymphadenopathy . - musculoskeltal : Cervical Spine motor stregnth in the deltoid and biceps, normal right side , normal Left side motor stregnth biceps and the wrist extensors normal right side ,normal left side . motor stregnth in the triceps muscle . normal Right side , normal Left side deep tendon reflexes normal at the biceps , normal at Brachioradialis , normal at triceps. cervical facet loading test: Positive Bilaterally Spurling test= positive Right , positive left. Neck distraction test= negative Lumber spine moter stegnth lower extremities ,thigh and legs 5/5 Right side , 5/5 Left side deep tendon reflexes : normal Knee J erk , normal ankle Jerk lumber facet Loading Test =positive Right , positive Left Range of motion of the lumbar spine Flexion 30 degrees, extension 10 degrees strait leg raising test = positive at 30 degree Fabere test= positive Right , and positive LT . Sever tenderness over the Sacroiliac joint on the Right , and Left sides Joanlen test= positive right ,and positive left . Seated flexion test= positive right ,and positive Left . Distraction test= positive bilaterally Sacroiliac compression test= positive bilaterally Assessment and Plan Assessment: Assessment and plan Assessment: 1-lumbar spondylosis with lumbar facet arthropathy without myelopathy Status post RFA with limited branch lumbar area 2- cervical spondylosis with cervical facet arthropathy without myelopathy 3-bilateral knee osteoarthritis Plan: Send patient for a cervical x-ray She could benefit from cervical medial branch block up to and including radiofrequency ablation In the future consider bilateral knee joint injection Like to schedule repeat lumbar radiofrequency ablation currently August 2021 Dr. Bullock was available by phone for consultation during his visit. I have spent 30 minutes on patient care today. The time was used to review the medical records including relevant urine studies and Prescription history (MAPs), review of the available imaging, evaluation and examination of the patient, coordination of care with the medical staff and if applicable referring physicians, as well as creation of the medical record. - PQRS measures = - Patient's medications are documented in the chart. -Tobacco use is negative -Patient's has received pneumococcal vaccine. -Advanced care planning discussed, patient not eligible. -Opiate contract not signed. -Pain positive and follow-up visit/procedure is scheduled. -Patient's blood pressure measured 124/87 , and documented in the record ,and patient will follow up with the primary care. -Patient was not identified as an unhealthy alcohol user Time with Patient: Less than 30
== END ==
LOC: PNWHC3 10:21
PROVIDERS: ATTEND Student in an Organized Health Care Education/Training Program
DX: M47.816 Spondylosis without myelopathy or radiculopathy, lumbar region (principal); M47.812 Spondylosis without myelopathy or radiculopathy, cervical region; M17.0 Bilateral primary osteoarthritis of knee; Z91.041 Radiographic dye allergy status; Z87.891 Personal history of nicotine dependence
CPT/HCPCS: 99211

== ENCOUNTER → 2021-07-18 | Outpatient (CLI) | payer BC ==
--- NOTE | 2021-07-18 13:52 | P.PN ---
Subjective Progress Note Date: 07/18/21 This is a follow-up visit for this 71 years old male with a chronic history of severe low back pain, he is diagnosed with lumbar spondylosis with lumbar facet arthropathy without myelopathy. The history have been RFA of the medial branch lumbar area, the patient complaining of increased neck pain and recently we did order an x-ray of the cervical spine and is here today for evaluation and discussion about the results of the x-ray of the cervical spine, Denies any change in bowel movement or urination, and he reported that the pain is very intense localized in the low back area, interfered with his ability to sleep and ability to function. Physical Examinations : -Constitutiona : Cooperative , not in acute distress . -HEENT : nech : supple , no Lymphadenopathy , normal thyroid size . : eyes : no ptosis , no icterus, no photophobia . - neurologic : Cranial nerve II to XII intact , no focal neurological deffecit . -psychatric : alert , oriented X 3 , appropriate affect , intact judgment and insight . -Lymphatic : no Lymphadenopathy . - musculoskeltal : Cervical Spine motor stregnth in the deltoid and biceps, normal right side , normal Left side motor stregnth biceps and the wrist extensors normal right side ,normal left side . motor stregnth in the triceps muscle . normal Right side , normal Left side deep tendon reflexes normal at the biceps , normal at Brachioradialis , normal at triceps. cervical facet loading test: Positive Bilaterally Spurling test= positive Right , positive left. Neck distraction test= negative Lumber spine moter stegnth lower extremities ,thigh and legs 5/5 Right side , 5/5 Left side. Facet loading test positive bilaterally X ray of the cervical spine= multilevel cervical degenerative disc disease and multilevel cervical facet arthropathy Assessment and plan 1-lumbar spondylosis with lumbar facet arthropathy without myelopathy 2- cervical spondylosis with cervical facet arthropathy without myelopathy Patient will be good candidate to have diagnostic medial branch block cervical area at C3-4 ,C4-5 bilaterally She could benefit from repeat RFA of the medial branch lumbar area in the future - PQRS measures = - Patient's medications are documented in the chart. -Tobacco use is negative -Patient's has received pneumococcal vaccine. -Advanced care planning discussed, patient not eligible. -Opiate contract not signed. -Pain positive and follow-up visit/procedure is scheduled. -Patient's blood pressure measured 121/72 , and documented in the record ,and patient will follow up with the primary care. -Patient was not identified as an unhealthy alcohol user Objective - Vital Signs Vital signs: Intake & Output 07/17/21 07/18/21 07/18/21 18:59 06:59 18:59 Weight 112.037 kg
[2021-07-18 14:03] VITALS: BP 121/72; PULSE 76; RESP 18; TEMP 97.9
== END ==
LOC: PNWHC3 13:22
PROVIDERS: ATTEND Specialist
DX: M47.816 Spondylosis without myelopathy or radiculopathy, lumbar region (principal); M47.812 Spondylosis without myelopathy or radiculopathy, cervical region; Z91.041 Radiographic dye allergy status; Z87.891 Personal history of nicotine dependence
CPT/HCPCS: 99211

== ENCOUNTER → 2021-07-27 | Outpatient (CLI) | payer BC ==
[2021-07-27 19:13] LABS: African American GFR (CKD) 62.7 (60.0-200.0); Anion Gap 11.4 mmol/L (10.00-18.00); BUN/Creat Ratio 16.92 Ratio (12.00-20.00); Calcium 9.2 mg/dL (8.7-10.3); Carbon Dioxide 24.6 mmol/L (20.0-27.5); Non-African American GFR(CKD) 54.1 (60.0-200.0); Potassium 4.3 mmol/L (3.5-5.5)
== END | disposition home or self-care (01) ==
LOC: LABWHC1 14:38
PROVIDERS: ATTEND Internal Medicine Interventional Cardiology
DX: I10 Essential (primary) hypertension (principal)
CPT/HCPCS: 36415; 80048

== ENCOUNTER → 2021-09-22 | Outpatient (CLI) | payer BC ==
[2021-09-22 10:38] VITALS: BP 132/87; PULSE 75; RESP 18; TEMP 97.9
--- NOTE | 2021-09-22 10:39 | P.PN ---
Subjective Progress Note Date: 09/22/21 Principal diagnosis: A 71 yr old male with a history of severe and chronic low back pain secondary to lumbar degenerative disc diseases and lumbar spondylosis with facet arthropathy presents today for evaluation status post bilateral RFA of the L4- L5, L5-S1. Patient states he experienced 95% pain relief status post procedure. Pain level is currently at 1 out of 10 in intensity, sore only with lifting, or bending. Pain is alleviated with Celebrex, ice, physical therapy on and off for 20 years, chiropractic treatments on and off, weekly exercise regimen and rest. Interventional pain procedures completed include bilateral RFA of the L4-L5, L5- S1 Patient is currently on Celebrex Patient denies any side effects of the medication(s), denies excessive drowsiness or sleepiness, denies suicidal ideation and reports that the current pain medication is helping to control the pain and improve activities of daily living. Patient denies any motor or sensory deficits. Patient denies any fever or night sweats, denies any change in the bowel movements or urination. Physical Examination: -Constitutional: Cooperative. Not in acute distress . -HEENT: Neck is supple. No lymphadenopathy. No thyromegaly. Normal thyroid size. Eyes: No ptosis , no icterus, no photophobia. ENT: No auditory deficits. Normal oropharynx. No Thrush. - Respiratory: Chest clear to auscultations bilaterally. No wheezing. No rhonchi. - Cardiovascular: Regular rate and rhythm. S1 / S2 , no S3 , no S4. - Gastrointestinal: Abdomen soft no tenderness. Bowel sounds positive in all four quadrants. No organomegaly. - Genitourinary: Deferred. - Neurologic: Cranial nerve II to XII intact. No focal neurological deficits. - Psychatric: Alert & oriented x 3. Matching mood & appropriate affect. Judgment and insight intact. - Lymphatic: No Lymphadenopathy. - Musculoskeletal: Cervical spine: Muscle bulk/ tone/ strength in the bilateral upper extremities normal. Facet loading test cervical area positive. Lumbar spine: Motor bulk/ tone/ strength lower extremities , thigh and legs : 5/5 Deep tendon reflexes : Normal Knee Jerk. Normal Ankle Jerk . Vertebral body tenderness to palpation over L5 Lumbar Facet Loading Test positive Straight Leg Raise: positive at 30 degrees right side/ left side Gaenslen's Test positive Sacral spine : Severe tenderness over the Sacroiliac joint: right side / left side Range of motion: Flexion of the lumbar spine <60 degrees Range of motion: Extension of the lumbar spine <20 degrees Gaenslen's Test positive Jayjay test: positive right side / left side Assessment and plan: Chronic low back pain secondary to lumbar degenerative disc disease , lumbar spondylosis with facet arthropathy without myelopathy Patient may return to our office on as-needed basis for additional treatment if needed All patient questions answered MAPS reviewed and it was appropriate. I have spent 31 minutes on patient care today. Dr Bullock was available by phone for the evaluation of this patient. The time was used to review the medical records including relevant urine studies and Prescription history (MAPs), review of the available imaging, evaluation and examination of the patient, coordination of care with the medical staff and if applicable referring physicians, as well as creation of the medical record Objective - Vital Signs Vital signs: Intake & Output 09/21/21 09/22/21 09/22/21 18:59 06:59 18:59 Weight 115.666 kg PQRS Measure Charge Sheet Mode of Arrival: Ambulatory - Pain Location Lower Back Non-Pharmacological Interventions: Home Exercise, Ice, Physical Therapy Pharmacological Interventions: PRN Medication PQRS Narrative: Smoking Status Former smoker Blood Pressure 132/87 Pain Intensity [Lower Back] 1 Scale Used Numeric (1 - 10) Hx Alcohol Use (MH) Yes Home Medications: Ambulatory Orders Omeprazole 20 mg PO DAILY PRN 03/23/19 Rosuvastatin Calcium [Crestor] 10 mg PO DAILY 03/23/19 allopurinoL [Zyloprim] 300 mg PO DAILY 03/23/19 buPROPion HCL [Wellbutrin XL] 150 mg PO BID 03/23/19 Cholecalciferol (Vitamin D3) [Vitamin D3] 2,000 unit PO DAILY 04/23/19 Multivitamins, Thera [Multivitamin (formulary)] 1 tab PO DAILY 04/23/19 Celecoxib [CeleBREX] 200 mg PO BID PRN 10/16/19 Magnesium Oxide [Richardson] 500 mg PO WESA 12/29/19 Dofetilide [Tikosyn] 500 mcg PO Q12HR 06/15/21 Cyclobenzaprine [Flexeril] 10 mg PO DAILY PRN 07/18/21 Melatonin 20 mg PO HS 07/18/21 Tadalafil [Cialis] 5 mg PO DIRECTED 07/18/21 valACYclovir [Valtrex] 50 mg PO DAILY PRN 07/18/21 Tamsulosin HCl [Flomax] 0.4 mg PO QAM 09/08/21
== END ==
LOC: PNWHC3 09:49
PROVIDERS: ATTEND Physician Assistant Medical
DX: M51.36 Other intervertebral disc degeneration, lumbar region (principal); M47.816 Spondylosis without myelopathy or radiculopathy, lumbar region; G89.29 Other chronic pain; Z87.891 Personal history of nicotine dependence; Z91.041 Radiographic dye allergy status
CPT/HCPCS: 99211

== ENCOUNTER → 2021-09-26 | Outpatient (CLI) | payer BC | END | disposition home or self-care (01) | LOC: LABWHC1 08:11 | DX: C61 Malignant neoplasm of prostate (principal) | CPT/HCPCS: 36415; 84153 ==

== ENCOUNTER → 2022-02-17 | Outpatient (CLI) | payer BC ==
[2022-02-17 14:39] LABS: HCT 46.4 % (39.6-50.0); MCH 30.3 pg (27.0-32.0); MCHC 32.3 g/dL (32.0-37.0); MCV 93.7 fL (80.0-97.0); Mean Platelet Volume 9.2 fL (9.5-12.2); NRBC Per 100 WBC 0 /100 WBCS (0.0-0.0); Platelet Count 207 X 10*3/uL (140-440); RBC 4.95 X 10*6/uL (4.40-5.60); WBC 7.26 X 10*3/uL (4.50-10.00)
[2022-02-17 16:00] LABS: ALT 19 U/L (10-49); AST 28 U/L (14-35); African American GFR (CKD) 62.9 (60.0-200.0); Albumin 4.4 g/dL (3.8-4.9); Albumin/Globulin Ratio 1.65 (1.60-3.17); Alkaline Phosphatase 70 U/L (41-126); BUN/Creat Ratio 14.65 Ratio (12.00-20.00); Blood Urea Nitrogen 18.9 mg/dL (9.0-27.0); Calcium 9.5 mg/dL (8.7-10.3); Carbon Dioxide 22.6 mmol/L (20.0-27.5); Chloride 107 mmol/L (96-109); Chol/HDL Ratio 3.14 Ratio; Globulin 2.7 g/dL (1.6-3.3); Glucose 102 mg/dL (70-110); LDL Cholesterol,Calculated 87.5 mg/dL (0.0-131.0); Non-African American GFR(CKD) 54.3 (60.0-200.0); Potassium 4.4 mmol/L (3.5-5.5); Sodium 142 mmol/L (135-145)
== END | disposition home or self-care (01) ==
LOC: LABWHC1 09:13
PROVIDERS: ATTEND Family Medicine
DX: Z00.01 Encounter for general adult medical examination with abnormal findings (principal); Z85.46 Personal history of malignant neoplasm of prostate
CPT/HCPCS: 36415; 80053; 80061; 84153; 85027

== ENCOUNTER → 2022-05-18 | Outpatient (CLI) | payer BC | END | disposition home or self-care (01) | LOC: LABWHC1 14:33 | PROVIDERS: ATTEND Radiology Radiation Oncology | DX: C61 Malignant neoplasm of prostate (principal) | CPT/HCPCS: 36415; 84153 ==

== ENCOUNTER → 2022-08-02 | Outpatient (CLI) | payer BC ==
--- NOTE | 2022-08-02 16:00 | XR ---
EXAMINATION TYPE: XR chest 2V DATE OF EXAM: 08/02/2022 COMPARISON: 03/23/2019 INDICATION: Pre-MRI clearance TECHNIQUE: Frontal and lateral views of the chest are obtained. FINDINGS: The heart size is normal. The pulmonary vasculature is normal. The lungs are clear. There is a metallic radiopaque foreign body within the mid chest. MRI clearance required for this dev ice. No epicardial leads are identified. Radiopaque foreign bodies are not otherwise evident. IMPRESSION: 1. Radiopaque foreign body along the left heart border. This will require clearance. 2. No additional metallic foreign bodies to contraindicate MRI. No epicardial leads identified.
== END | disposition home or self-care (01) ==
LOC: RADXRMAIN 09:32
PROVIDERS: ATTEND Orthopaedic Surgery
DX: Z01.818 Encounter for other preprocedural examination (principal); T81.50 Unspecified complication of foreign body accidentally left in body following procedure
CPT/HCPCS: 71046

== ENCOUNTER → 2022-08-21 | Outpatient (CLI) | payer BC | END | disposition home or self-care (01) | LOC: LABWHC1 16:06 | PROVIDERS: ATTEND Radiology Radiation Oncology | DX: C61 Malignant neoplasm of prostate (principal) | CPT/HCPCS: 36415; 84153 ==

== ENCOUNTER → 2023-02-08 | Outpatient (CLI) | payer BC | END | disposition home or self-care (01) | LOC: LABWHC1 16:03 | PROVIDERS: ATTEND Orthopaedic Surgery | DX: Z53.9 Procedure and treatment not carried out, unspecified reason (principal) ==

== ENCOUNTER → 2023-09-10 | Outpatient (CLI) | payer BC ==
[2023-09-10 19:01] LABS: HCT 45.3 % (39.6-50.0); HGB 15.4 g/dL (13.0-17.0); MCH 31.1 pg (27.0-32.0); MCV 91.5 FL (80.0-97.0); NRBC Per 100 WBC 0 X 10*3/uL (0.00-0.01); Platelet Count 209 X 10*3/uL (140-440); RBC 4.95 X 10*6/uL (4.40-5.60); RDW 13.3 % (11.5-14.5); WBC 8.31 X 10*3/uL (4.50-10.00)
[2023-09-10 19:52] LABS: Blood Urea Nitrogen 18.5 mg/dL (9.0-27.0); Chloride 106 mmol/L (96-109); Potassium 4.3 mmol/L (3.5-5.5); Sodium 141 mmol/L (135-145)
== END | disposition home or self-care (01) ==
LOC: LABPAT 14:44
PROVIDERS: ATTEND Internal Medicine Interventional Cardiology
DX: Z01.812 Encounter for preprocedural laboratory examination (principal); R94.39 Abnormal result of other cardiovascular function study
CPT/HCPCS: 36415; 80051; 82565; 84520; 85027

== ENCOUNTER → 2023-09-14 | Day surgery (SDC) | payer BC ==
[~2023-09-14] MED LIST changes: +ALPRAZolam 0.25 MG TAB PO PRN; +ALPRAZolam 0.5 MG TAB PO PRN; +ASPIRIN 325 MG TAB PO ONE; +ASPIRIN 81 MG PO SCH; +CYCLOBENZAPRINE 10 MG TAB PO PRN; +DOFETILIDE 500 MCG CAP PO SCH; +HEPARIN SODIUM 1,000 UN/ML (10ML VL) ONE; -HYDROmorphone 0.5 MG/0.5 ML SYRINGE IVP PRN; -LACTATED RINGERS 1,000 ML IV SCH; -LIDOCAINE 1% (10MG/ML) FOR IV START INTRADERMA ONE; +MELOXICAM 7.5 MG TAB PO PRN; -MIDAZOLAM 2 MG/2 ML VIAL IV PRN; -MIDAZOLAM 2 MG/2 ML VIAL ONE; +MULTIVITAMINS, THERA 1 EACH TAB PO SCH; +NITROGLYCERIN SL TABS 0.4 MG TAB SUBLINGUAL ONE; +NITROGLYCERIN SL TABS 0.4 MG TAB SUBLINGUAL PRN; +NON FORMULARY DRUG (Cholecalciferol (Vitamin D3) [Vitamin D3] 2,000 UNIT Capsule) PO SCH; +NON FORMULARY DRUG (Famotidine [Famotidine] 40 MG Tablet) PO SCH; +NON FORMULARY DRUG (Magnesium Oxide [Phillips] 500 MG Tablet) PO SCH; +NON FORMULARY DRUG (Melatonin [Melatonin Er] 10 MG Tablet) PO SCH; +NON FORMULARY DRUG (Omeprazole [Omeprazole] 20 MG Capsule.Dr) PO SCH; +NON FORMULARY DRUG (Rosuvastatin Calcium [Crestor] 10 MG Tablet) PO SCH; -ROPIVACAINE 5MG/ML 20ML VIAL ONE; +buPROPion XL 150 MG TAB.ER.24H PO SCH; -methylPREDNISolone ACETATE 40 MG/ML 1 ML VIAL ONE; +valACYclovir HCL 500 MG TAB PO PRN
[2023-09-14] MEDS: SODIUM CHLORIDE 0.9% 1,000 ML in EMPTY BAG 1 BAG IV SCH (06:07)
[2023-09-14 07:09] VITALS: RESP 16; TEMP 97.8
[2023-09-14] MEDS: MIDAZOLAM 2 MG/2 ML VIAL IVP ONE (07:35)
[2023-09-14] MEDS: VERAPAMIL SYRINGE (5 MG/10 ML) INTRAARTER ONE (07:44)
[2023-09-14] MEDS: LIDOCAINE 1% INJ 10MG/ML (30 ML VIAL-PF) SQ ONE (07:44)
[2023-09-14] MEDS: fentaNYL (PF) 50 MCG/ML 2 ML AMP IVP ONE (07:49)
[2023-09-14] MEDS: NITROGLYCERIN SL TABS 0.4 MG TAB SUBLINGUAL ONE (07:50)
[2023-09-14] MEDS: HEPARIN SODIUM 1,000 UN/ML (10ML VL) IV ONE (07:50)
[2023-09-14] MEDS: IOPAMIDOL-370 100ML BTL INJ ONE (07:59)
--- NOTE | 2023-09-14 10:19 | CC ---
CARDIAC CATHETERIZATION REPORT PROCEDURES PERFORMED: Left heart catheterization and coronary angiography. PERFORMED BY: Dr. Chuck Schwab. ANESTHESIA: Moderate conscious sedation time was 19 minutes. The patient was administered Versed. Oxygen saturation, hemodynamics, and EKG were monitored closely. CLINICAL INFORMATION: Mr. Navneet Waldrop is a 73-year-old gentleman with a known history of hypertension, hyperlipidemia, persistent atrial fibrillation, for which he had a mini-thoracotomy and a mini-maze procedure, and a left atrial clip placed in [place] by a thoracotomy approach. He also has had previous cryoablation prior to that, that was unsuccessful. He also has atrial flutter, but did not have any ablation for this. He is not on anticoagulants and does not wish to take any. Because of an abnormal stress test involving the inferolateral wall, I recommended coronary angiography after due discussion. PROCEDURE NOTE: Under local anesthesia and strict aseptic precautions, a 6-Micronesian introducer was placed in the right radial artery. Using JL3.5 and JR4 catheters, I performed coronary angiography and a pigtail catheter was used to check LV pressures, but LV-gram was not performed. The sheath was taken out and TR Band applied with saturation of fingers of the right hand of 96%. The patient tolerated the procedure well without complication. Results were discussed with him in detail. I called his , but could not reach her. I will try her again. CARDIAC CATHETERIZATION FINDINGS: The left ventricular end-diastolic pressure was 6 mmHg without any gradient across the aortic valve. Right coronary artery: Dominant vessel, has minor irregularities, distally gives off a large PDA, small PLV, minor irregularities of the PDA. No significant disease in the dominant RCA. Left main coronary artery: Short, patent vessel that is free of significant disease, bifurcates into LAD and circumflex. The left main itself is free of significant disease. Left anterior descending coronary artery: This is a good caliber vessel, extends along the anterior wall, gives off a large diagonal branch in the midportion, has minor irregularities. There is about a 35% to 40% narrowing in the mid LAD after the origin of the diagonal branch. Distally, the vessel is tortuous curves over the apex to supply the inferoapical portion. A 35% mid LAD disease after the origin of the diagonal branch, no other significant disease. Left posterior circumflex coronary artery: Technically, a nondominant vessel, gives off a high obtuse marginal, almost looks like a ramus, has minor irregularities, no significant disease and circumflex in the AV groove, gives off a distal posterolateral branch and another small obtuse marginal branch; both of these have minor irregularities, no more than 30%. Left ventriculogram was not performed. FINAL IMPRESSION: This patient has normal filling pressures. No gradient. Right-dominant system with 30% to 35% stenosis involving the circumflex and the 35% to 40% stenosis involving the mid LAD. No significant disease in the RCA. Distal branches have minor irregularities. RECOMMENDATIONS: Findings were discussed with the patient. We will speak to his . Continued aggressive medical therapy with the risk factor modification is advised. The patient will be discharged later on today and I will see him in the office on Sunday. I will also start him on losartan 50 mg daily and discontinue the metoprolol because of a fairly significant first-degree AV block. He is in sinus rhythm. So, we will discontinue metoprolol succinate, which was 12.5 mg daily and we will start him on losartan 50 mg daily. MMODL / IJN: [id number] /
[2023-09-14] MEDS: SODIUM CHLORIDE 0.9% 500 ML 500 ML IV ONE (13:15)
[2023-09-14 18:55] VITALS: BP 140/81; PULSE 56
== END ==
LOC: CATHCVL 05:51
PROVIDERS: ATTEND Internal Medicine Interventional Cardiology
DX: R94.39 Abnormal result of other cardiovascular function study (principal); I10 Essential (primary) hypertension; I48.19 Other persistent atrial fibrillation; E78.00 Pure hypercholesterolemia, unspecified; G47.33 Obstructive sleep apnea (adult) (pediatric); F10.90 Alcohol use, unspecified, uncomplicated; Z79.899 Other long term (current) drug therapy
CPT/HCPCS: 93458; 99152; C1769 ×2; C1894; J2250; J2001; J3010; J1644; Q9967

== ENCOUNTER → 2024-02-08 | Outpatient (CLI) | payer BC | END | disposition home or self-care (01) | LOC: LABWHC1 14:52 | PROVIDERS: ATTEND Physician Assistant | DX: Z85.46 Personal history of malignant neoplasm of prostate (principal) | CPT/HCPCS: 36415; 84153 ==

== ENCOUNTER → 2024-02-28 | Outpatient (CLI) | payer BC ==
[2024-02-29 02:54] LABS: BUN/Creat Ratio 14.29 Ratio (12.00-20.00); Blood Urea Nitrogen 24.3 mg/dL (9.0-27.0); Calcium 9.3 mg/dL (8.7-10.3); Carbon Dioxide 23.1 mmol/L (21.6-31.8); Chloride 105 mmol/L (96-109); Glucose 91 mg/dL (70-110); Magnesium 2.1 mg/dL (1.5-2.4); Potassium 4.3 mmol/L (3.5-5.5); Sodium 141 mmol/L (135-145)
== END | disposition home or self-care (01) ==
LOC: LABWHC1 16:27
PROVIDERS: ATTEND Hospitalist
DX: I48.92 Unspecified atrial flutter (principal)
CPT/HCPCS: 36415; 80048; 83735

== ENCOUNTER 2024-07-24 13:02 | Emergency (ER) | payer BC ==
--- NOTE | 2024-07-24 13:45 | ED ---
Back Pain HPI - General Chief Complaint: Back Pain/Injury Stated Complaint: Fall, back davonte Time Seen by Provider: 07/24/24 13:42 Source: patient, family, RN notes reviewed Limitations: no limitations - History of Present Illness Initial Comments: 74-year-old male presenting with low back injury x 11 days ago. States he had a mechanical fall where his right leg gave out and he fell, hitting his buttocks on the ground and his shoulder on the wall. States he feels like he compressed his back during the fall. Since then, he has had pain in the lower back worse with movement. States pain is alleviated when he lays flat and does not move. He was seen by his PCP and was prescribed tramadol however reports this has not been alleviating pain. Denies numbness, tingling, weakness of the bilateral lower extremities. Denies saddle anesthesia. Denies loss of bowel or bladder control. No other injuries from the fall. - Related Data Home Medications Medication Instructions Recorded Confirmed Omeprazole 20 mg PO DAILY 03/23/19 09/14/23 Rosuvastatin Calcium [Crestor] 10 mg PO DAILY 03/23/19 09/14/23 buPROPion HCL [Wellbutrin XL] 150 mg PO DAILY 03/23/19 09/14/23 Cholecalciferol (Vitamin D3) 5,000 unit PO DAILY 04/23/19 09/14/23 [Vitamin D3] Multivitamins, Thera [Multivitamin 1 tab PO DAILY 04/23/19 09/14/23 (formulary)] Celecoxib [CeleBREX] 200 mg PO BID PRN 10/16/19 09/14/23 Magnesium Oxide [Richardson] 500 mg PO WESA 12/29/19 09/11/23 Dofetilide [Tikosyn] 500 mcg PO Q12HR 06/15/21 09/14/23 Cyclobenzaprine [Flexeril] 10 mg PO DAILY PRN 07/18/21 09/11/23 Melatonin [Melatonin Tr] 20 mg PO HS 07/18/21 09/14/23 valACYclovir HCL [Valtrex] 50 mg PO DAILY PRN 07/18/21 09/11/23 Aspirin 81 mg PO DAILY 09/11/23 09/14/23 Famotidine 40 mg PO DIRECTED 09/11/23 09/14/23 Metoprolol Succinate [Metoprolol 25 mg PO HS 09/11/23 09/14/23 Succinate ER] predniSONE [Deltasone] 20 mg PO DIRECTED 09/11/23 09/14/23 Previous Rx's Medication Instructions Recorded HYDROcodone/APAP 5-325MG [[place] 5] 1 each PO Q6HR PRN #12 tab 07/24/24 Lidocaine 4% Patch 1 patch TOPICAL DAILY PRN #7 patch 07/24/24 Naproxen [Naprosyn] 500 mg PO Q12H PRN #30 tablet 07/24/24 Allergies Allergy/AdvReac Type Severity Reaction Status Date / Time Iodinated Contrast Media Allergy Anaphylaxis Verified 07/24/24 13:12 [Iodinated Contrast- Oral and IV Dye] Review of Systems ROS Statement: Those systems with pertinent positive or pertinent negative responses have been documented in the HPI. ROS Other: All systems not noted in ROS Statement are negative. Past Medical History Past Medical History: Atrial Fibrillation, Cancer, GERD/Reflux, Hyperlipidemia, Osteoarthritis (OA), Prostate Disorder, Renal Disease Additional Past Medical History / Comment(s): hiatal hernia, peripheral neuropathy, hx basal and squamus skin cancer, no current A-Fib per pt, "enlarged liver", gout, "chronic kidney disease from NSAIDs", herpes virus comes and goes on lip, vertigo, prostate cancer History of Any Multi-Drug Resistant Organisms: None Reported Past Surgical History: Appendectomy, Cardiac Ablation, Orthopedic Surgery Additional Past Surgical History / Comment(s): nerve ablation in back, lt wrist and hand surgery to relieve tendon, CARDIOVERSION X7, "ablation of pulmonary veins" , RK and cataract surgery [place], pain clinic procedures. MAZE heart procedure 04/2019, Lt. quad tendon repair 2022 Past Anesthesia/Blood Transfusion Reactions: No Reported Reaction Additional Past Anesthesia/Blood Transfusion Reaction / Comment(s): claustrophobia Past Psychological History: Anxiety Smoking Status: Former smoker Past Alcohol Use History: Heavy Past Drug Use History: Marijuana - Past Family History Father Family Medical History: Cancer Additional Family Medical History / Comment(s): Lung cancer. General Exam Limitations: no limitations General appearance: alert, in no apparent distress Head exam: Present: atraumatic, normocephalic, normal inspection Extremities exam: Present: normal inspection, full ROM, normal capillary refill. Absent: tenderness, pedal edema, joint swelling, calf tenderness Back exam: Present: normal inspection, full ROM, tenderness (Point tenderness lumbar spine, no overlying skin changes), vertebral tenderness. Absent: paraspinal tenderness, rash noted Neurological exam: Present: alert, oriented X3 Psychiatric exam: Present: normal affect, normal mood Skin exam: Present: warm, dry, intact, normal color. Absent: rash Course Vital Signs 07/24/24 07/24/24 13:12 16:26 Temperature 98.1 F 97.8 F Pulse Rate 68 57 L Respiratory 20 18 Rate Blood Pressure 123/85 113/71 O2 Sat by Pulse 98 96 Oximetry Medical Decision Making - Medical Decision Making Was pt. sent in by a medical professional or institution (, PA, DIRECTOR SAFETY, urgent care, hospital, or alf...) When possible be specific @ -No Did you speak to anyone other than the patient for history (EMS, parent, family, police, friend...)? What history was obtained from this source @ -No Did you review nursing and triage notes (agree or disagree)? Why? @ -I reviewed and agree with nursing and triage notes Were old charts reviewed (outside hosp., previous admission, EMS record, old EKG, old radiological studies, urgent care reports/EKG's, alf records)? Report findings @ -No old charts were reviewed Differential Diagnosis (chest pain, altered mental status, abdominal pain women, abdominal pain men, vaginal bleeding, weakness, fever, dyspnea, syncope, headac he, dizziness, GI bleed, back pain, seizure, CVA, palpatations, mental health, musculoskeletal)? @ -Differential Musculoskeletal Muscular strain, contusion, ligament sprain, fracture, arthritis, septic arthritis, bursitis, cellulitis, muscle spasm, nerve compression, DVT, arterial occlusion, herpes zoster, electrolyte abnormality, tumor.... This is not meant to be in all inclusive list EKG interpreted by me (3pts min.). @ -None X-rays interpreted by me (1pt min.). 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 @ -CT lumbar spine reveals acute L3 vertebral body compression fracture involving superior, anterior, and inferior endplates, no retropulsion, approximately 5% height loss centrally U/S interpreted by me (1pt. min.). @ -None done What testing was considered but not performed or refused? (CT, X-rays, U/S, labs)? Why? @ -None What meds were considered but not given or refused? Why? @ -None Did you discuss the management of the patient with other professionals (professionals i.e. Dr., PA, DIRECTOR SAFETY, lab, RT, psych nurse, school social worker, editor department, teacher, major gifts officer, case consultant)? Give summary @ -No Was smoking cessation discussed for >3mins.? @ -No Was critical care preformed (if so, how long)? @ -No Were there social determinants of health that impacted care today? How? (Homelessness, low income, unemployed, alcoholism, drug addiction, aguayo sportation, low edu. Level, literacy, decrease access to med. care, long term, rehab)? @ -No Was there de-escalation of care discussed even if they declined (Discuss DNR or withdrawal of care, Hospice)? DNR status @ -No What co-morbidities impacted this encounter? (DM, HTN, Smoking, COPD, CAD, Cancer, CVA, ARF, Chemo, Hep., AIDS, mental health diagnosis, sleep apnea, morbid obesity)? @ -None Was patient admitted / discharged? Hospital course, mention meds given and route, prescriptions, significant lab abnormalities, going to OR and other pertinent info. @ -Discharge. 74-year-old male presenting with back injury status post fall 11 days ago. Neurovascularly intact. No red flag symptoms. There is reproducible point tenderness in lumbar spine. X-ray lumbar spine reveals osteopenia with superior endplate deformity of L3. CT lumbar spine that obtained which reveals acute L3 vertebral body compression fracture involving superior, anterior, and inferior endplates approximately 5% height loss centrally. Results discussed with patient. Advise close follow-up with orthopedics, referral given. Appropriate return precautions and supportive care discussed. Patient discharged with analgesics. Case was discussed with my ED attending Dr. Albert Undiagnosed new problem with uncertain prognosis? @ -No Drug Therapy requiring intensive monitoring for toxicity (Heparin, Nitro, Insulin, Cardizem)? @ -No Were any procedures done? @ -No Diagnosis/symptom? @ -Vertebral compression fracture Acute, or Chronic, or Acute on Chronic? @ -Acute Uncomplicated (without systemic symptoms) or Complicated (systemic symptoms)? @ -Uncomplicated Side effects of treatment? @ -No Exacerbation, Progression, or Severe Exacerbation? @ -No Poses a threat to life or bodily function? How? (Chest pain, USA, SD, pneumonia, PE, COPD, DKA, ARF, appy, cholecystitis, CVA, Diverticulitis, Homicidal, Suicidal, threat to staff... and all critical care pts) @ -No Disposition Clinical Impression: Compression fracture of L3 vertebra Disposition: HOME SELF-CARE Condition: Stable Instructions (If sedation given, give patient instructions): Vertebral Compression Fracture (ED) Additional Instructions: Follow-up with Dr. Mc as discussed. Take [place], naproxen, and lidocaine patches as needed for pain. Please return to the Emergency Department if symptoms worsen or any other concerns. Prescriptions: Lidocaine 4% Patch 1 patch TOPICAL DAILY PRN #7 patch PRN Reason: Pain Naproxen [Naprosyn] 500 mg PO Q12H PRN #30 tablet PRN Reason: Pain HYDROcodone/APAP 5-325MG [[place] 5] 1 each PO Q6HR PRN #12 tab PRN Reason: Pain Is patient prescribed a controlled substance at d/c from ED?: Yes If prescribed controlled substance>3 days was MAPS reviewed?: Prescribed <3 Days If opioid is for acute pain is fill amount 7 days or less?: Yes Referrals: Michael Yang MD [Primary Care Provider] - 1-2 days Sunny Mc MD [STAFF PHYSICIAN] - 1-2 days Time of Disposition: 16:11
--- NOTE | 2024-07-24 14:20 | XR ---
EXAMINATION TYPE: XR lumbar spine 3V DATE OF EXAM: 07/24/2024 1:59 PM COMPARISON: CT 01/21/2015 CLINICAL INDICATION: Male, 74 years old with pain and stiffness, history of low back injury, , FINDINGS: Rightward truncal shift. Osteopenia. Superior endplate deformity L3 but with overall preserved verteb ral body height. Hypertrophic facet arthropathy with degenerative grade 1 anterolisthesis L4-L5. Mild multilevel degenerative disc disease.-Lower thoracic spine. Baastrup's disease. IMPRESSION: 1. Osteopenia with superior endplate deformity of L3 possibly secondary to the patient's recent injur y. Correlate for any focal pain at this level. Findings are new from the [address] CT[address] 2. Hypertrophic facet arthropathy with degenerative grade 1 anterolisthesis L4-L5. 3. [facility] lower thoracic spine and Baastrup's disease. [facility], , 07/24/2024 2:18 PM
--- NOTE | 2024-07-24 15:34 | CT ---
EXAMINATION TYPE: CT lumbar spine wo con CT DLP: 1764.6 mGycm, Automated exposure control for dose reduction was used. DATE OF EXAM: 07/24/2024 3:22 PM COMPARISON: Lumbar spine radiograph 07/24/2024. CLINICAL INDICATION:Male, 74 years old with history of low back injury; PHH, Patient fell on floor to day, lower back pain. Abnormal XR. TECHNIQUE: Multiple axial images were obtained from the midportion of T11 through the sacroiliac stacey nts. Soft tissue and bone windows in coronal and sagittal planes were obtained and reviewed. Contrast used: none. FINDINGS: Alignment: There are 5 lumbar type vertebral bodies. Minimal grade 1 anterolisthesis of L4 on L5 with out evidence of pars defects. Bone: Acute vertically oriented fracture involving the superior, anterior and inferior endplates of t he L3 vertebral body. There is approximately 10% height loss centrally. No retropulsion. Mild surroun ding paravertebral fat stranding. Degenerative changes of the bilateral SI joints with right SI joint anterior bridging. DISH of the lower thoracic spine. Subtle stranding along the right iliopsoas. Discs: Multilevel disc space narrowing with vacuum disc disease. Schmorl's node involving the superio r endplate of L5 vertebral body an inferior endplate of the L4 vertebral body. T12-L1: No spinal canal or neural foraminal stenosis is identified. L1-L2: No spinal canal or neural foraminal stenosis is identified. L2-L3: No significant central canal stenosis. Bilateral facet arthropathy. No significant neural fora bairon stenosis. L3-L4: Broad-based disc bulge with ligamentum flavum and bilateral facet arthropathy contribute to mi ld central canal stenosis. Mild bilateral neural foraminal stenosis. L4-L5: Grade 1 anterolisthesis with uncovering of the disc. Broad-based disc bulge with ligamentum fl avum and bilateral facet arthropathy contribute to moderate central canal stenosis. No significant ne ural foraminal stenosis. L5-S1: Broad-based disc bulge with mild effacement of the anterior thecal sac. Bilateral facet arthro graeme. Moderate left and mild right neural foraminal stenosis. Other: Small hiatal hernia is partially visualized. Right renal 1.6 cm cyst. Punctate nonobstructive bilateral renal calculi. Sigmoid diverticulosis without visualized acute diverticulitis. IMPRESSION: 1. Acute L3 vertebral body compression fracture involving the superior, anterior, and inferior endpla jared. No retropulsion. Approximately 5% height loss centrally. 2. Moderate multilevel degenerative disc disease and facet arthropathy as described above. 3. Minimal grade 1 anterolisthesis of L4 on L5 without pars defects. [facility], , 07/24/2024 3:32 PM
[2024-07-24 16:27] VITALS: BP 113/71; PULSE 57; RESP 18; TEMP 97.8
== END 2024-07-24 16:28 | disposition home or self-care (01) ==
LOC: EC 13:02
DX: S32.038A Other fracture of third lumbar vertebra, initial encounter for closed fracture (principal); Z91.041 Radiographic dye allergy status; Z87.891 Personal history of nicotine dependence; W18.39XA Other fall on same level, initial encounter; Y92.39 Other specified sports and athletic area as the place of occurrence of the external cause
CPT/HCPCS: 72100; 72131; 99284

== ENCOUNTER → 2024-08-07 | Outpatient (CLI) | payer BC ==
[2024-08-07 12:08] LABS: Prothrombin Time 11.1 sec (10.0-12.5)
[2024-08-07 15:06] LABS: Basophils # (A) 0.04 X 10*3/uL (0.00-0.10); Basophils % (A) 0.4 %; Eosinophils # (A) 0.06 X 10*3/uL (0.04-0.35); Eosinophils % (A) 0.6 %; HCT 45.7 % (39.6-50.0); HGB 15.2 g/dL (13.0-17.0); Lymphocytes # (A) 2.06 X 10*3/uL (0.90-5.00); Lymphocytes % (A) 19.9 %; MCH 31.3 pg (27.0-32.0); MCHC 33.3 g/dL (32.0-37.0); MCV 94.2 FL (80.0-97.0); Mean Platelet Volume 8.7 FL (9.5-12.2); Monocytes # (A) 1.04 X 10*3/uL (0.20-1.00); NRBC Per 100 WBC 0 X 10*3/uL (0.00-0.01); Neutrophils # (A) 7.12 X 10*3/uL (1.80-7.70); Neutrophils % (A) 68.6 %; Platelet Count 236 X 10*3/uL (140-440); RBC 4.85 X 10*6/uL (4.40-5.60); RDW 12.8 % (11.5-14.5); WBC 10.37 X 10*3/uL (4.50-10.00)
[2024-08-07 15:45] LABS: Appearance,Urine Clear (Clear); Bilirubin,Urine Small (Negative); Blood,Urine Negative (Negative); Color,Urine Dark Yellow (Yellow); Ketones,Urine Trace (Negative); Nitrite,Urine Negative (Negative); Specific Gravity,Urine 1.025 (1.001-1.030)
[2024-08-07 16:03] LABS: ALT 25 U/L (10-49); AST 22 U/L (14-35); Albumin 4.4 g/dL (3.8-4.9); Albumin/Globulin Ratio 1.83 Ratio (1.60-3.17); Alkaline Phosphatase 130 U/L (41-126); BUN/Creat Ratio 18.07 Ratio (12.00-20.00); Blood Urea Nitrogen 27.1 mg/dL (9.0-27.0); Calcium 9.5 mg/dL (8.7-10.3); Carbon Dioxide 22.5 mmol/L (21.6-31.8); Chloride 105 mmol/L (96-109); Globulin 2.4 g/dL (1.6-3.3); Glucose 99 mg/dL (70-110); Potassium 4.2 mmol/L (3.5-5.5); Sodium 141 mmol/L (135-145); Total Bilirubin 0.6 mg/dL (0.3-1.2); Total Protein 6.8 g/dL (6.2-8.2)
[2024-08-07 17:16] LABS: Bacteria,Urine None Seen (None Seen); Calcium Oxalate Crystals,Urine Present (None Seen)
== END | disposition home or self-care (01) ==
LOC: LABPAT 11:02
PROVIDERS: ATTEND Orthopaedic Surgery Orthopaedic Surgery of the Spine
DX: Z22.322 Carrier or suspected carrier of Methicillin resistant Staphylococcus aureus (principal)
CPT/HCPCS: 80053; 81001; 83036; 85025; 85610; 85730; 87070

== ENCOUNTER → 2024-08-07 | Outpatient (CLI) | payer BC | END | disposition home or self-care (01) | LOC: LABWHC1 10:58 | PROVIDERS: ATTEND Family Medicine | DX: Z01.818 Encounter for other preprocedural examination (principal) ==

== ENCOUNTER → 2024-08-12 | Outpatient (CLI) | payer BC ==
--- NOTE | 2024-08-12 15:03 | XR ---
EXAMINATION TYPE: XR chest 2V DATE OF EXAM: 08/12/2024 2:55 PM COMPARISON: 08/02/2022 CLINICAL INDICATION: Male, 74 years old with history of Z01.818 ENCOUNTER FOR OTHER PREPROCEDURAL L3 compression fx, TECHNIQUE: XR chest 2V view(s) obtained. FINDINGS: The heart size is normal. The pulmonary vasculature is normal. The lungs are clear. IMPRESSION: 1. No acute pulmonary process. [facility], , 08/12/2024 3:01 PM
== END | disposition home or self-care (01) ==
LOC: LABPAT 14:30
PROVIDERS: ATTEND Orthopaedic Surgery Orthopaedic Surgery of the Spine
DX: Z01.818 Encounter for other preprocedural examination (principal); M48.56XA Collapsed vertebra, not elsewhere classified, lumbar region, initial encounter for fracture
CPT/HCPCS: 71046

== ENCOUNTER 2024-08-13 11:02 | Day surgery (SDC) | payer BC ==
[~2024-08-13 11:02] MED LIST changes: -ALPRAZolam 0.25 MG TAB PO PRN; -ALPRAZolam 0.5 MG TAB PO PRN; -ASPIRIN 325 MG TAB PO ONE; -ASPIRIN 81 MG PO SCH; -CYCLOBENZAPRINE 10 MG TAB PO PRN; -DOFETILIDE 500 MCG CAP PO SCH; -HEPARIN SODIUM 1,000 UN/ML (10ML VL) ONE; -MELOXICAM 7.5 MG TAB PO PRN; -MULTIVITAMINS, THERA 1 EACH TAB PO SCH; -NITROGLYCERIN SL TABS 0.4 MG TAB SUBLINGUAL ONE; -NITROGLYCERIN SL TABS 0.4 MG TAB SUBLINGUAL PRN; -NON FORMULARY DRUG (Cholecalciferol (Vitamin D3) [Vitamin D3] 2,000 UNIT Capsule) PO SCH; -NON FORMULARY DRUG (Famotidine [Famotidine] 40 MG Tablet) PO SCH; -NON FORMULARY DRUG (Magnesium Oxide [Phillips] 500 MG Tablet) PO SCH; -NON FORMULARY DRUG (Melatonin [Melatonin Er] 10 MG Tablet) PO SCH; -NON FORMULARY DRUG (Omeprazole [Omeprazole] 20 MG Capsule.Dr) PO SCH; -NON FORMULARY DRUG (Rosuvastatin Calcium [Crestor] 10 MG Tablet) PO SCH; -buPROPion XL 150 MG TAB.ER.24H PO SCH; +ceFAZolin 1,000 MG in SODIUM CHLORIDE 0.9% IRRIGATIO 1,000 ML IRRIGATION PRN; -fentaNYL (PF) 50 MCG/ML 2 ML AMP ONE; -valACYclovir HCL 500 MG TAB PO PRN
[2024-08-13] MEDS: LACTATED RINGERS 1,000 ML BAG IV STA (11:42)
[2024-08-13] MEDS: IV FLUID CONTINUATION 1,000 ML IV ONE (11:42)
[2024-08-13] MEDS ORDERED: droPERidol 5 MG/2 ML VIAL IVP ONE (11:54)
[2024-08-13] MEDS ORDERED: DEXAMETHASONE SOD PHOSPHATE 4 MG/ML 1 ML VIAL IV ONE (11:54)
[2024-08-13] MEDS ORDERED: LIDOCAINE 1% (10MG/ML) FOR IV START INTRADERMA PRN (11:54)
[2024-08-13] MEDS ORDERED: LACTATED RINGERS 1,000 ML IV SCH (12:00)
[2024-08-13] MEDS: ONDANSETRON 4 MG/2 ML VIAL IVP ONE (12:08)
[2024-08-13 12:11] LABS: Glucose,Whole Blood 107 mg/dL (70-110)
[2024-08-13] MEDS ORDERED: PROPOFOL 10 MG/ML 20 ML VIAL IV ONE (13:00)
[2024-08-13] MEDS ORDERED: SUCCINYLCHOLINE CHLORIDE 200 MG/10 ML VIAL IV ONE (13:00)
[2024-08-13] MEDS ORDERED: fentaNYL (PF) 50 MCG/ML 2 ML AMP ONE (13:00)
[2024-08-13] MEDS ORDERED: LIDOCAINE 1% INJ 10MG/ML (20 ML MDV) ONE (13:00)
[2024-08-13] MEDS ORDERED: MIDAZOLAM 2 MG/2 ML VIAL ONE (13:00)
[2024-08-13] MEDS ORDERED: ePHEDrine 50 MG/ML 1 ML VIAL ONE (13:00)
[2024-08-13] MEDS: BUPIVACAINE (PF) 0.5% 30 ML VIAL SQ ONE ×2 (13:03→13:31)
[2024-08-13] MEDS: IOPAMIDOL-370 200ML BTL MISCELLANE ONE ×2 (13:04→13:32)
[2024-08-13] MEDS: LIDOCAINE 1%-EPI 1:100,000 20 ML VIAL SQ ONE ×2 (13:04→13:31)
[2024-08-13] MEDS ORDERED: SODIUM CHLORIDE 0.9% 1,000 ML IV SCH (14:00)
[2024-08-13] MEDS ORDERED: HYDROmorphone 1 MG/ML 1 ML SYRINGE IVP PRN (14:00)
[2024-08-13] MEDS ORDERED: BENZOCAINE/MENTHOL LOZENG 1 EACH LOZENGE MUCOUS MEM PRN (14:00)
[2024-08-13] MEDS ORDERED: HYDROmorphone 0.5 MG/0.5 ML SYRINGE IVP PRN (14:00)
[2024-08-13] MEDS ORDERED: ONDANSETRON 4 MG/2 ML VIAL IVP PRN (14:01)
[2024-08-13] MEDS ORDERED: ACETAMINOPHEN TAB 500 MG TAB PO PRN (14:01)
[2024-08-13] MEDS ORDERED: traMADol 50 MG TAB PO PRN (14:01)
[2024-08-13] MEDS ORDERED: KETOROLAC 15 MG/ML 1 ML VIAL IVP PRN (14:01)
[2024-08-13] MEDS ORDERED: CYCLOBENZAPRINE 10 MG TAB PO PRN (14:01)
[2024-08-13] MEDS ORDERED: Acetaminophen-Codeine 300-30mg TAB PO PRN ×2 (14:03)
--- NOTE | 2024-08-13 14:08 | P.OP ---
Date of Procedure: 08/13/24 Preoperative Diagnosis: L3 traumatic vertebral compression fracture, low back pain, failed conservative treatment Postoperative Diagnosis: Same Anesthesia: GETA Pathology: other Condition: stable Disposition: PACU Description of Procedure: BRIEF OPERATIVE NOTE Preoperative Diagnosis: L3 traumatic vertebral compression fracture, low back pain, failed conservative treatment Postoperative Diagnosis: Same Procedure: Kyphoplasty of L3 Vertebral body biopsy of L3 Use of biplanar fluoroscopic guidance Surgeon: Dr. Savage Financial Administrator: Valentin DAVIS who is present throughout the entire the case persistence during positioning, dissection, exposure, visualization, and all crucial elements of the case as well as closure. Anesthesia: General anesthesia Dr. Olmstead Estimated blood loss: Less than 10 mL Specimen: Vertebral body biopsy of L3 sent to pathology in formalin Complications: None apparent Components implanted: Bone cement approximately 9 cc Disposition: To recovery room in good stable condition. OPERATIVE INDICATIONS The patient has been having issues in their back ever since sustaining an injury. He had acute pain after his injury and it was found to have a new compression fracture with comminution at L3. He was not having neurologic loss or involvement of the posterior elements of the vertebral body. He was having excruciating pain despite bracing and conservative treatment. The patient has been through conservative treatment. They attempted conservative care with bracing however they're not having any benefit despite brace use. They continue to have significant pain and debility due to their fracture. He felt he was worsening despite conservative treatment due to the L3 fracture we discussed various treatment options including surgery, and the patient wishes to proceed with surgery We discussed the risk, patient's alternatives and benefits of surgery including but not limited to, risk of bleeding risk of infection, risk of need for further surgery, risk of decreased, loss of motion, loss of function, cement extravasation, nerve damage, paralysis, heart attack, blindness and . OPERATIVE SUMMARY After discussing all the risks, patient alternatives and benefits at length, the patient elected to proceed with surgical intervention, signed informed consent, and presented for their procedure. The patient was seen and examined in the preoperative holding area and the surgical site was marked. The patient was given antibiotics and brought to the operating room. The patient was sedated and intubated by anesthesia in standard fashion. The patient was positioned on to the operating room table in a prone position on the appropriate well-padded and well molded bilateral chest rolls. We were careful to pad any bony prominences and pressure points. We were careful to maintain the patient's cervical spine and good neutral alignment and position throughout. We used 2 C-arm machines to establish biplanar fluoroscopic guidance in AP and lateral positions. We were able to localize the fractures appropriately at L3. The patient was prepped and draped in a normal standard fashion. An appropriate timeout and keystone protocol performed. We were able to proceed with the surgery. The local wound area was infiltrated with local anesthetic. An incision was made over the lateral aspect of the pedicle over the appropriate levels with a small 2 mm stab incision at L3 bilaterally. Intraoperative fluoroscopy was taken which showed a marker at the appropriate level. With the appropriate level positively confirmed, I was able to position a sharp trocar over the lateral aspect of the pedicle. I was able to advance the trocar into the pedicle and into the posterior aspect of vertebral body being careful to avoid penetration cephalad caudad or medially. The trocar was placed appropriately into the posterior aspect of vertebral body at the appropriate lev els. This was confirmed with C-arm guidance. With the trocar intact I was then able to take a bone biopsy with a biopsy punch or a bony drill. The biopsy specimen was passed off to be sent to [facility] in formalin. I was then able to place the kyphoplasty balloon within the vertebral body. The position was checked on C-arm. I was able to inflate the balloon under low pressure and visualization with C-arm. The balloon was well enclosed within the vertebral body. The cement was prepared. With the cement at appropriate working condition the balloons were deflated and removed. I was able to place bony cement with trocar with the cement delivery device under low pressure. It had good fill within the vertebral body. There is no evidence of any extravasation of the cement posteriorly toward the canal. There was some cement extravasation into the disc space at L2-3 through one of the fracture lines. This seemed contained adequately and remained in the disc space without further extravasation. The cement was well contained at the appropriate levels. The cement was allowed to cure appropriately. The trochars removed and final images were taken on C-arm. This showed the cement at the appropriate levels at L3. We were able to proceed with closure. The wound was cleaned and dried and dressed with the appropriate dressing. The drapes were broken down. The patient was gently rolled back onto their hospital bed being careful to maintain their cervical spine and good neutral alignment and position. They were woken up by anesthesia, extubated, and brought to the recovery room in good stable condition. The patient will be admitted to the hospital for observation and for appropriate postoperative care, medical management and monitoring. We will continue to follow them closely about the postoperative course.
[2024-08-13 14:18] VITALS: TEMP 96.9
--- NOTE | 2024-08-13 14:52 | XR ---
Fluoroscopy INDICATION: Pain, vertebral plasty FINDINGS: Fluoroscopy time: 1 minute 5 seconds. Total dose area product (DAP) in uGy*m?, mGy*cm? (or similar): 51.115 Images obtained: 4. Cement placed within lumbar vertebral body IMPRESSION: 1. Documentation of fluoroscopy. [facility], , 08/13/2024 2:50 PM
[2024-08-13 15:34] VITALS: BP 114/76; PULSE 52; RESP 20
[2024-08-14] MEDS ORDERED: HYDROmorphone 0.5 MG/0.5 ML SYRINGE IVP PRN (07:00)
[2024-08-14] MEDS ORDERED: SENNOSIDES-DOCUSATE SODIUM 1 EACH TAB PO SCH (09:00)
== END 2024-08-13 15:34 | disposition home or self-care (01) ==
LOC: OR 11:02
PROVIDERS: ATTEND Orthopaedic Surgery Orthopaedic Surgery of the Spine
DX: S32.038A Other fracture of third lumbar vertebra, initial encounter for closed fracture (principal); I48.91 Unspecified atrial fibrillation; C44.90 Unspecified malignant neoplasm of skin, unspecified; C61 Malignant neoplasm of prostate; E78.5 Hyperlipidemia, unspecified; K21.9 Gastro-esophageal reflux disease without esophagitis; M10.9 Gout, unspecified; N28.9 Disorder of kidney and ureter, unspecified; F41.9 Anxiety disorder, unspecified; F12.90 Cannabis use, unspecified, uncomplicated; F40.240 Claustrophobia; Z91.041 Radiographic dye allergy status; Z79.82 Long term (current) use of aspirin; Z79.899 Other long term (current) drug therapy; X58.XXXA Exposure to other specified factors, initial encounter
CPT/HCPCS: 72100; 22514; C1713; J2250; J0330; J0690; J2405; J2003; J3010; J2704; Q9967; J0665

== ENCOUNTER → 2024-10-06 | Outpatient (CLI) | payer BC ==
[2024-10-06 10:25] VITALS: BP 121/83; PULSE 78; RESP 16; TEMP 97.3
--- NOTE | 2024-10-06 16:49 | P.PAINPG ---
PQRS Measure Charge Sheet Comment: A 74 yr old male as a referral from Dr Savage with a history of severe and chronic LBP > 5 yrs secondary to radiculopathy, lumbar spondylosis with facet arthropathy presents today for evaluation. Pt underwent a BL RFA L4-L5/ L5-S1 in 2021 where he experienced 90% pain relief x 2 yrs s/p procedure. Pain level is currently at 7 /10 in intensity, predominantly axial, constant, sore in character without radiation of pain. Pain is provoked with standing/ walking for periods > 10 min. Pain is alleviated with PT x 1 wk which he is currently in, massage therapy semi monthly x 1 mo w last visit in Aug 2024, heat, ice, medications, topical, physician guided home exercise regimen since surgery in Jul 2024, repositioning and rest. Chiropractic treatments are contraindicated since L3 kyphoplasty in Jul 2024. He was prescribed Eliquis from Dr Schwab "a couple months ago" but states he is not taking it due to having success with the MAZE procedure. Oswestry axial pain score of 31. PMH: aFib, Basal & Squamous Cell CA, GERD, Hyperlipidemia, HH, Prostate CA, CKD, Anxiety/ Claustrophobia PSH: L3 Kyphoplasty (2024), Appendectomy, Cardiac Ablation, Cardioversion x7, MAZE Heart Procedure (2018), L Quad Tendon Repair (2022), BL RK & Cataract Surgery SH: Former tobacco user, Hx of Heavy ETOH use, Cannabis use FH: Fa- Lung CA All: Iodine Contrast Meds: See list incl Tyl Interventional pain procedures completed include bilateral RFA of the L4-L5, L5- S1 Patient is currently on Celebrex Patient denies any side effects of the medication(s), denies excessive drowsiness or sleepiness, denies suicidal ideation and reports that the current pain medication is helping to control the pain and improve activities of daily living. Patient denies any motor or sensory deficits. Patient denies any fever or night sweats, denies any change in the bowel movements or urination. Physical Examination: -Constitutional: Cooperative. Not in acute distress . -HEENT: Neck is supple. No lymphadenopathy. No thyromegaly. Normal thyroid size. Eyes: No ptosis , no icterus, no photophobia. ENT: No auditory deficits. Normal oropharynx. No Thrush. - Respiratory: Chest clear to auscultations bilaterally. No wheezing. No rhonchi. - Cardiovascular: Regular rate and rhythm. S1 / S2 , no S3 , no S4. - Gastrointestinal: Abdomen soft no tenderness. Bowel sounds positive in all four quadrants. No organomegaly. - Genitourinary: Deferred. - Neurologic: Cranial nerve II to XII intact. No focal neurological deficits. - Psychatric: Alert & oriented x 3. Matching mood & appropriate affect. Judgment and insight intact. - Lymphatic: No Lymphadenopathy. - Musculoskeletal: Cervical spine: Muscle bulk/ tone/ strength in the bilateral upper extremities normal. Facet loading test cervical area positive. Lumbar spine: +Incisional scar intact Motor bulk/ tone/ strength lower extremities , thigh and legs : 5/5 Deep tendon reflexes : Normal Knee Jerk. Normal Ankle Jerk . Vertebral body tenderness to palpation over L5 Lumbar Facet Loading Test positive BL L4-L5, L5-S1 Straight Leg Raise: positive at 30 degrees right side/ left side Gaenslen's Test positive Sacral spine : Severe tenderness over the Sacroiliac joint: right side / left side Range of motion: Flexion of the lumbar spine <60 degrees Range of motion: Extension of the lumbar spine <20 degrees Gaenslen's Test positive Jayjay test: positive right side / left side Imaging: MRI non contrast of the lumbar spine from 09/16/24 reviewed Assessment and plan: Chronic LBP secondary to radiculopathy , lumbar spondylosis with facet arthropathy without myelopathy Recommendation of BL RFA L4-L5, L5-S1. Risks, benefits of procedure discussed and pt verbalized understanding. Protocol for discontinuation/ continuation of medications elvi procedure discussed. Minimal anesthesia including Fentanyl and Versed if clinically indicated. All patient questions ans wered MAPS reviewed and it was appropriate. I have spent 31 minutes on patient care today. Dr Bullock was available by phone for the evaluation of this patient. The time was used to review the medical records including relevant urine studies and Prescription history (MAPs), review of the available imaging, evaluation and examination of the patient, coordination of care with the medical staff and if applicable referring physicians, as well as creation of the medical record PQRS Narrative: Smoking Status Former smoker Hx Alcohol Use (MH) Yes Home Medications: Ambulatory Orders Omeprazole 20 mg PO DAILY 03/23/19 Rosuvastatin Calcium [Crestor] 10 mg PO DAILY 03/23/19 buPROPion HCL [Wellbutrin XL] 150 mg PO BID 03/23/19 Cholecalciferol (Vitamin D3) [Vitamin D3] 5,000 unit PO DAILY 04/23/19 Multivitamins, Thera [Multivitamin (formulary)] 1 tab PO DAILY 04/23/19 Magnesium Oxide [Richardson] 500 mg PO WESA 12/29/19 Cyclobenzaprine [Flexeril] 10 mg PO DAILY PRN 07/18/21 Melatonin [Melatonin Tr] 20 mg PO HS 07/18/21 valACYclovir HCL [Valtrex] 50 mg PO DAILY PRN 07/18/21 Aspirin 81 mg PO HS 09/11/23 Metoprolol Succinate [Metoprolol Succinate ER] 25 mg PO QAM 09/11/23 Losartan [Cozaar] 12.5 mg PO DAILY 08/12/24 traMADol HCL 50 mg PO Q6H PRN 08/12/24 Acetaminophen-Codeine 300-30mg [Tylenol w/codeine #3] 1 - 2 tab PO Q4-6H PRN #56 tablet 08/13/24 Controlled Substance Measures - Controlled Substance Measures Is patient prescribed a controlled substance at discharge?: No
== END ==
LOC: PNWHC3 10:03
PROVIDERS: ATTEND Specialist
DX: M47.26 Other spondylosis with radiculopathy, lumbar region (principal); G89.29 Other chronic pain; Z87.891 Personal history of nicotine dependence; Z91.041 Radiographic dye allergy status
CPT/HCPCS: 99211

== ENCOUNTER 2024-10-28 06:56 | Day surgery (SDC) | payer BC ==
[2024-10-28] MEDS: IV FLUID CONTINUATION 1,000 ML IV ONE ×2 (07:17→08:42)
[2024-10-28 07:21] VITALS: TEMP 96.9
[2024-10-28] MEDS: LACTATED RINGERS 1,000 ML IV SCH (07:27)
[2024-10-28] MEDS ORDERED: fentaNYL (PF) 50 MCG/ML 2 ML AMP ONE (08:03)
[2024-10-28] MEDS ORDERED: methylPREDNISolone ACETATE 40 MG/ML 1 ML VIAL ONE (08:03)
[2024-10-28] MEDS ORDERED: ROPIVACAINE 5MG/ML 20ML VIAL ONE (08:03)
[2024-10-28] MEDS ORDERED: MIDAZOLAM 2 MG/2 ML VIAL ONE (08:03)
--- NOTE | 2024-10-28 08:34 | P.PCN ---
Date of Procedure: 10/28/24 Procedure(s) Performed: PREOPERATIVE DIAGNOSIS: 1-Lumbar Spondylosis with Facet Arthropathy without myelopathy. 2- Lumber degenerative disc disease. POSTOPERATIVE DIAGNOSIS: 1- Lumbar Spondylosis with Facet Arthropathy without myelopathy. 2- Lumber degenerative disc disease. PROCEDURES : Bilateral Radiofrequency thermocoagulation, L3 , L4,L5 medial branch, with fluoroscopic guidance (fluoroscopy images in the rad dept) ( to denervate the facet joint at bilateral L4-5 ,and L5-S1 levels ). ANESTHESIA: Moderate sedation with intravenous versed 2 mg and fentaneyl 100 mcg,(sedation start time 08:03 end time 08:32 ). EBL: Minimal PROCEDURE INDICATION: The patient with low back pain secondary to lumbar facet arthropathy who had more than 50% relief of her pain with previous diagnostic lumbar medial branch block with bupivacaine. PROCEDURE DESCRIPTION / TECHNIQUE: The patient was seen and identified in the preoperative area. Risks, benefits, complications, including but not limited to risk of infection ,bleeding , allergic reactions to the medications and no c omplete pain releife , and alternatives were discussed with the patient, the patient agreed to proceed with the procedure and signed the consent. IV was started. Vital signs remained stable throughout the procedure. Patient was taken to the OR and time out was completed. The patient was placed in the prone position on the procedure table. The lumber area was prepped and draped in the usual sterile fashion. . Vital signs were closely monitored during the procedure .IV sedation was used during the procedure to decrease patients anxiety. Using AP and then oblique fluoroscopy, the ``eye of the Trae dog corresponding to the connection between the superior and transverse articular processes of right L3, L4, and L5 were identified, marked, and localized with 1% lidocaine. Subsequently, a 18 guage (VENOM )100-mm radiofrequency cannula with a 10-mm active tip was advanced guided by fluoroscopy to each of the``eyes of the Trae dog at right L3, L4, and L5. Each site then underwent sensory testing at 50 Hz and 0 to 1 volt and motor testing at 2.5 Hz and 0 to 3 volt with local stimulation, but no radicular symptoms down the legs. Thereafter each sites underwent radiofrequency thermocoagulation at 80 degrees celsius for 90 seconds after injecting 0.5 ml of PF Ropivacaine 1ml, then after the thermocoagulation done , 1 ml of the block solution containing Depo-Medrol 20 mg and 3 ml of Ropivacaine 0.5% was injected at the right L3 , L4 , and L5 , levels after negative aspiration of CSF and blood and with no paresthesias. Cannulas were retracted while injecting lidocaine 1% until the needle is out. The same procedure was repeated at the level of Left L3, L4, and L5 levels. At the end of the procedure, the skin was cleansed and bandages were applied. COMPLICATIONS: No acute complications. DISPOSITION / PLANS: The patient was placed in a supine position and transferred to the recovery area in a stable condition for observation and was discharged from the recovery room after meeting discharge criteria. Home discharge instructions given to the patient by the staff. The patient was reexamined prior to discharge. The patient will schedule a follow up in the clinic in 2-4 weeks.
--- NOTE | 2024-10-28 09:00 | FL ---
EXAMINATION TYPE: FL guided pain mgmt statistic DATE OF EXAM: 10/28/2024 8:40 AM COMPARISON: Pre Operative Images if available both CT/MRI or plain film CLINICAL INDICATION: Male, 74 years old with history of RAD FREQ FB LUM BILATERAL; TECHNIQUE: FL guided pain mgmt statistic, multiple fluoroscopic images provided for procedure. DAP: 0.46664 mGym2 Gycm2 uGym2 cGycm2 or equivalent. FINDINGS: Fluoroscopic images during injection for pain management demonstrate multilevel degeneration changes throughout the spine. No evidence for fracture. No acute process identified. IMPRESSION: 1. No evidence for intraoperative complication. 2. Please see the operative/procedural note for further details. [facility], , 10/28/2024 8:57 AM
[2024-10-28 09:10] VITALS: BP 117/82; PULSE 76; RESP 18
== END 2024-10-28 09:14 | disposition home or self-care (01) ==
LOC: ORPAIN 06:56
PROVIDERS: ATTEND Specialist
DX: M47.816 Spondylosis without myelopathy or radiculopathy, lumbar region (principal); M51.369 Other intervertebral disc degeneration, lumbar region without mention of lumbar back pain or lower extremity pain; Z91.041 Radiographic dye allergy status
CPT/HCPCS: 64635; 64636; J2250; J3010; J2795; J1010; 99152; 99153

== ENCOUNTER → 2024-12-08 | Outpatient (CLI) | payer BC ==
[2024-12-08 09:58] VITALS: BP 124/83; PULSE 71; RESP 16; TEMP 97.1
--- NOTE | 2024-12-08 16:09 | P.PAINPG ---
PQRS Measure Charge Sheet Comment: A 74 yr old male with a history of severe and chronic LBP > 5 yrs secondary to radiculopathy, lumbar spondylosis with facet arthropathy presents today for evaluation s/p BL RFA L4-L5/ L5-S1. Pt states he experienced >50% pain relief s/p procedure. Pain level is currently at 6 /10 in intensity, predominantly axial, intermittent, sore in character without radiation of pain. Pain is provoked with standing/ walking for periods > 10 min. Pain is alleviated with PT x 7 wk which he is currently in, massage therapy semi monthly x 1 mo w last visit in Aug 2024, heat, ice, medications, topical, physician guided home exercise regimen since surgery in Jul 2024, repositioning and rest. Chiropractic treatments are contraindicated since L3 kyphoplasty in Jul 2024. He was prescribed Eliquis from Dr Schwab "a couple months ago" but states he is not taking it due to having success with the MAZE procedure. Interventional procedures include L3 Kyphoplasty (2024), BL RFA L3-L5 x1 (11/21) Medications include Celebrex, Tyl, Cannabis. Hx of Heavy ETOH use Patient denies any side effects of the medication(s), denies excessive drowsiness or sleepiness, denies suicidal ideation and reports that the current pain medication is helping to control the pain and improve activities of daily living. Patient denies any motor or sensory deficits. Patient denies any fever or night sweats, denies any change in the bowel movements or urination. Physical Examination: -Constitutional: Cooperative. Not in acute distress . -HEENT: Neck is supple. No lymphadenopathy. No thyromegaly. Normal thyroid size. Eyes: No ptosis , no icterus, no photophobia. ENT: No auditory deficits. Normal oropharynx. No Thrush. - Respiratory: Chest clear to auscultations bilaterally. No wheezing. No rhonchi. - Cardiovascular: Regular rate and rhythm. S1 / S2 , no S3 , no S4. - Gastrointestinal: Abdomen soft no tenderness. Bowel sounds positive in all four quadrants. No organomegaly. - Genitourinary: Deferred. - Neurologic: Cranial nerve II to XII intact. No focal neurological defici ts. - Psychatric: Alert & oriented x 3. Matching mood & appropriate affect. Judgment and insight intact. - Lymphatic: No Lymphadenopathy. - Musculoskeletal: Cervical spine: Muscle bulk/ tone/ strength in the bilateral upper extremities normal. Facet loading test cervical area positive. Lumbar spine: +Incisional scar intact Motor bulk/ tone/ strength lower extremities , thigh and legs : 5/5 Deep tendon reflexes : Normal Knee Jerk. Normal Ankle Jerk . Vertebral body tenderness to palpation over L5 Lumbar Facet Loading Test positive BL L4-L5, L5-S1 Straight Leg Raise: positive at 30 degrees right side/ left side Gaenslen's Test positive Sacral spine : Severe tenderness over the Sacroiliac joint: right side / left side Range of motion: Flexion of the lumbar spine <60 degrees Range of motion: Extension of the lumbar spine <20 degrees Gaenslen's Test positive Jayjay test: positive right side / left side Imaging: MRI non contrast of the lumbar spine from 09/16/24 reviewed Assessment and plan: Chronic LBP secondary to radiculopathy , lumbar spondylosis with facet arthropathy without myelopathy Will manage residual pain and may RTC on an as-needed basis. All patient questions answered . MAPS reviewed and it was appropriate. I have spent 31 minutes on patient care today. Dr Bullock was available by phone for the evaluation of this patient. The time was used to review the medical records including relevant urine studies and Prescription history (MAPs), review of the available imaging, evaluation and examination of the patient, coordination of care with the medical staff and if applicable referring physicians, as well as creation of the medical record - Pain Location Bilateral Lower Back Non-Pharmacological Interventions: Chiropractic Treatment, Heat, Ice, Inactivity, Massage, Physical Therapy, Position/Reposition, Relaxation Technique, Sitting Pharmacological Interventions: Block, Epidural, PRN Medication, Topical Medic ation PQRS Narrative: Smoking Status Former smoker Hx Alcohol Use (MH) Yes Home Medications: Ambulatory Orders Omeprazole 20 mg PO DAILY 03/23/19 Rosuvastatin Calcium [Crestor] 10 mg PO DAILY 03/23/19 buPROPion HCL [Wellbutrin XL] 150 mg PO BID 03/23/19 Cholecalciferol (Vitamin D3) [Vitamin D3] 5,000 unit PO DAILY 04/23/19 Multivitamins, Thera [Multivitamin (formulary)] 1 tab PO DAILY 04/23/19 Magnesium Oxide [Richardson] 500 mg PO WESA 12/29/19 Cyclobenzaprine [Flexeril] 10 mg PO DAILY PRN 07/18/21 Melatonin [Melatonin Tr] 20 mg PO HS 07/18/21 valACYclovir HCL [Valtrex] 50 mg PO DAILY PRN 07/18/21 Aspirin 81 mg PO HS 09/11/23 Losartan [Cozaar] 12.5 mg PO DAILY 08/12/24 Dofetilide [Tikosyn] 500 mcg PO Q12HR 10/24/24 DULoxetine HCL [Cymbalta] 20 mg PO DAILY 12/08/24 HYDROcodone/APAP 7.5-325MG [[place] 7.5-325] 1 tab PO Q4H PRN 3 Days #18 tab 12/08/24 Controlled Substance Measures - Controlled Substance Measures Is patient prescribed a controlled substance at discharge?: Yes When asked, does pt state using other controlled substances?: No If prescribed controlled substance>3 days was MAPS reviewed?: Prescribed <3 Days
== END ==
LOC: PNWHC3 09:27
PROVIDERS: ATTEND Specialist
DX: M47.26 Other spondylosis with radiculopathy, lumbar region (principal); G89.29 Other chronic pain; F12.90 Cannabis use, unspecified, uncomplicated; Z87.891 Personal history of nicotine dependence; Z91.041 Radiographic dye allergy status
CPT/HCPCS: 99211

== ENCOUNTER → 2025-01-14 | Outpatient (CLI) | payer BC ==
[2025-01-14 09:57] VITALS: BP 127/83; PULSE 69; RESP 21
--- NOTE | 2025-01-14 15:38 | P.PAINPG ---
PQRS Measure Charge Sheet Comment: A 74 yr old male with a history of severe and chronic LBP > 5 yrs secondary to radiculopathy, lumbar spondylosis with facet arthropathy, BL Sacroiliitis presents today for evaluation. Pain level is currently at 6 /10 in intensity, localized in the lumbosacral spine, predominantly axial, intermittent, sore in character w radiation of pain to the buttocks. Pain is provoked with standing/ walking/ sitting for periods > 20 min. Pain is alleviated with PT x 7 wk which he is currently in, massage therapy semi monthly x 1 mo w last visit in Aug 2024, heat, ice, medications, topical, physician guided home exercise regimen since surgery in Jul 2024, repositioning and rest. Chiropractic treatments are contraindicated since L3 kyphoplasty in Jul 2024. He was prescribed Eliquis from Dr Schwab "a couple months ago" but states he is not taking it due to having success with the MAZE procedure. Interventional procedures include L3 Kyphoplasty (2024), BL RFA L3-L5 x1 (11/21) Medications include Celebrex, Tyl, Cannabis. Hx of Heavy ETOH use Patient denies any side effects of the medication(s), denies excessive drowsiness or sleepiness, denies suicidal ideation and reports that the current pain medication is helping to control the pain and improve activities of daily living. Patient denies any motor or sensory deficits. Patient denies any fever or night sweats, denies any change in the bowel movements or urination. Physical Examination: -Constitutional: Cooperative. Not in acute distress . -HEENT: Neck is supple. No lymphadenopathy. No thyromegaly. Normal thyroid size. Eyes: No ptosis , no icterus, no photophobia. ENT: No auditory deficits. Normal oropharynx. No Thrush. - Respiratory: Chest clear to auscultations bilaterally. No wheezing. No rhonchi. - Cardiovascular: Regular rate and rhythm. S1 / S2 , no S3 , no S4. - Gastrointestinal: Abdomen soft no tenderness. Bowel sounds positive in all four quadrants. No organomegaly. - Genitourinary: Deferred. - Neurologic: Cranial nerve II to XII intact. No focal neurological deficits. - Psychatric: Alert & oriented x 3. Matching mood & appropriate affect. Judgment and insight intact. - Lymphatic: No Lymphadenopathy. - Musculoskeletal: Cervical spine: Muscle bulk/ tone/ strength in the bilateral upper extremities normal. Facet loading test cervical area positive. Lumbar spine: +Incisional scar intact Motor bulk/ tone/ strength lower extremities , thigh and legs : 5/5 Deep tendon reflexes : Normal Knee Jerk. Normal Ankle Jerk . Vertebral body tenderness to palpation over L5 Lumbar Facet Loading Test positive BL L4-L5, L5-S1 Straight Leg Raise: positive at 30 degrees right side/ left side Gaenslen's Test positive Sacral spine : Severe tenderness over the Sacroiliac joint: right side / left side Range of motion: Flexion of the lumbar spine <60 degrees Range of motion: Extension of the lumbar spine <20 degrees Gaenslen's Test positive BL Jayjay test: positive right side / left side BL positive Sacral Thrust test Imaging: MRI non contrast of the lumbar spine from 09/16/24 reviewed Assessment and plan: Chronic LBP secondary to L3 kyphoplasty, radiculopathy , lumbar spondylosis with facet arthropathy without myelopathy, BL Sacroiliitis Recommendation of BL SI #1. May benefit from BRENDA L4-L5 but also has s tenosis so surgery is an option. Risks, benefits of procedure discussed and pt verbalized understanding. All patient questions answered . I have spent 31 minutes on patient care today. Dr Bullock was available by phone for the evaluation of this patient. The time was used to review the medical records including relevant urine studies and Prescription history (MAPs), review of the available imaging, evaluation and examination of the patient, coordination of care with the medical staff and if applicable referring physicians, as well as creation of the medical record PQRS Narrative: Smoking Status Former smoker Hx Alcohol Use (MH) Yes Home Medications: Ambulatory Orders Omeprazole 20 mg PO DAILY 03/23/19 Rosuvastatin Calcium [Crestor] 10 mg PO DAILY 03/23/19 buPROPion HCL [Wellbutrin XL] 150 mg PO BID 03/23/19 Cholecalciferol (Vitamin D3) [Vitamin D3] 5,000 unit PO DAILY 04/23/19 Multivitamins, Thera [Multivitamin (formulary)] 1 tab PO DAILY 04/23/19 Magnesium Oxide [Richardson] 500 mg PO WESA 12/29/19 Cyclobenzaprine [Flexeril] 10 mg PO DAILY PRN 07/18/21 Melatonin [Melatonin Tr] 20 mg PO HS 07/18/21 valACYclovir HCL [Valtrex] 50 mg PO DAILY PRN 07/18/21 Aspirin 81 mg PO HS 09/11/23 Losartan [Cozaar] 12.5 mg PO DAILY 08/12/24 Dofetilide [Tikosyn] 500 mcg PO Q12HR 10/24/24 DULoxetine HCL [Cymbalta] 20 mg PO DAILY 12/08/24 HYDROcodone/APAP 7.5-325MG [[place] 7.5-325] 1 tab PO Q4H PRN 3 Days #18 tab 12/08/24 Controlled Substance Measures - Controlled Substance Measures Is patient prescribed a controlled substance at discharge?: No
== END ==
LOC: PNWHC3 09:27
PROVIDERS: ATTEND Specialist
DX: M47.26 Other spondylosis with radiculopathy, lumbar region (principal); M46.1 Sacroiliitis, not elsewhere classified; Z87.891 Personal history of nicotine dependence; Z91.041 Radiographic dye allergy status
CPT/HCPCS: 99212

== ENCOUNTER → 2025-01-23 | Outpatient (CLI) | payer BC ==
--- NOTE | 2025-01-23 18:32 | US ---
EXAMINATION TYPE: US kidneys/renal and bladder DATE OF EXAM: 01/23/2025 COMPARISON: CT 07/24/2024 CLINICAL INDICATION: Male, 74 years old with history of N18.32 CKD; hx prostate cancer TECHNIQUE: Grayscale imaging of the bilateral kidneys and urinary bladder: FINDINGS: EXAM MEASUREMENTS: Right Kidney: 10.3 x 5.1 x 5.4 cm Left Kidney: 11.4 x 4.5 x 5.7 cm Right Kidney: Cortical thinning. Left Kidney: Cortical thinning. Upper pole hypoechoic lesion - 3.9 x 3.3 x 4.1 cm, limited visualizat ion Bladder: mildly distended, anechoic Bilateral Jets not seen There is no evidence for hydronephrosis at this point in time. No nephrolithiasis is seen. No linda s are identified. The urinary bladder is anechoic. IMPRESSION: 1. No evidence for obstructive uropathy or calculus. 2. Possible renal mass near the left kidney. 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 Precautio nary CT abdomen pelvis recommended with contrast patient is able to. Renal mass protocol 3. Medical renal disease with mild atrophy of the kidneys. [facility], , 01/23/2025 6:29 PM
== END | disposition home or self-care (01) ==
LOC: RADUSWWP 16:00
PROVIDERS: ATTEND Internal Medicine
DX: N18.32 Chronic kidney disease, stage 3b (principal); N26.1 Atrophy of kidney (terminal)
CPT/HCPCS: 76770

== ENCOUNTER → 2025-02-02 | Outpatient (CLI) | payer BC ==
[2025-02-02 15:39] LABS: ALT 35 U/L (10-49); AST 32 U/L (14-35); Albumin 4.3 g/dL (3.8-4.9); Albumin/Globulin Ratio 1.87 Ratio (1.60-3.17); Alkaline Phosphatase 85 U/L (41-126); Anion Gap 14.00 mmol/L (4.00-12.00); BUN/Creat Ratio 13.12 Ratio (12.00-20.00); Blood Urea Nitrogen 21.0 mg/dL (9.0-27.0); Calcium 9.2 mg/dL (8.7-10.3); Carbon Dioxide 22.0 mmol/L (21.6-31.8); Chloride 105 mmol/L (96-109); Ferritin 352.0 ng/mL (22.0-322.0); Globulin 2.3 g/dL (1.6-3.3); Glucose 95 mg/dL (70-110); Iron 90 UG/DL (65-175); Magnesium 2.0 mg/dL (1.5-2.4); Potassium 4.2 mmol/L (3.5-5.5); Sodium 141 mmol/L (135-145); Total Iron Binding Capacity 346 UG/DL (228-460); Total Protein 6.6 g/dL (6.2-8.2); Uric Acid 7.0 mg/dL (3.7-8.7)
[2025-02-02 16:12] LABS: HCT 46.5 % (39.6-50.0); HGB 15.2 g/dL (13.0-17.0); MCH 31.3 pg (27.0-32.0); MCHC 32.7 g/dL (32.0-37.0); MCV 95.7 FL (80.0-97.0); NRBC Per 100 WBC 0 X 10*3/uL (0.00-0.01); Platelet Count 247 X 10*3/uL (140-440); RBC 4.86 X 10*6/uL (4.40-5.60); RDW 14.6 % (11.5-14.5); WBC 8.20 X 10*3/uL (4.50-10.00)
[2025-02-02 16:47] LABS: Bacteria,Urine Trace (None Seen); Bilirubin,Urine Negative (Negative); Blood,Urine Negative (Negative); Calcium Oxalate Crystals,Urine Present (None Seen); Color,Urine Dark Yellow (Yellow); Ketones,Urine Trace (Negative); Nitrite,Urine Negative (Negative); PH, Urine 5.5; Specific Gravity,Urine 1.033 (1.001-1.030); Urobilinogen,Urine 1.0
[2025-02-03 12:04] LABS: Free Kappa Lt Chain Qnt, Serum 1.35 mg/dL (0.33-1.94); Free Lambda Lt Chain Qnt, Seru 1.66 mg/dL (0.57-2.63)
== END | disposition home or self-care (01) ==
LOC: LABWHC1 10:51
PROVIDERS: ATTEND Family Medicine
DX: N18.32 Chronic kidney disease, stage 3b (principal); D63.1 Anemia in chronic kidney disease; N39.0 Urinary tract infection, site not specified; E83.39 Other disorders of phosphorus metabolism; N25.81 Secondary hyperparathyroidism of renal origin; R80.9 Proteinuria, unspecified
CPT/HCPCS: 36415; 80053; 81001; 82043; 82306; 82570; 82728; 83540; 83550; 83735; 83883; 83970; 84100; 84166; 84550; 85027; 86334

== ENCOUNTER 2025-02-03 08:39 | Day surgery (SDC) | payer BC ==
[2025-02-02 12:48] VITALS: BMI 31.6
[2025-02-03 09:05] VITALS: TEMP 97
[2025-02-03] MEDS ORDERED: TRIAMCINOLONE ACETONIDE 40 MG/ML 1 ML VIAL ONE (09:51)
[2025-02-03] MEDS ORDERED: ROPIVACAINE 5 MG/ML 30 ML VIAL ONE (09:51)
--- NOTE | 2025-02-03 10:00 | P.PCN ---
Date of Procedure: 02/03/25 Surgeon: Irena Stevenson Description of Procedure: Pre- and Post-operative Diagnosis: Bilateral sacroiliitis, bilateral sacroiliac joint dysfunction Procedure: Bilateral sacroiliac Joint steroid injection under biplanar fluoroscopy Surgeon: Irena Stevenson MD Anesthesia: Local only: 1% Lidocaine Complications: none Estimated blood loss: None Specimen removed: None Fluoroscopic image: Saved to patient electronic medical records. Procedure and Findings: The patient was seen and examined in the holding area. The written informed consent was obtained after explaining the risks, benefits and alternatives of the procedure to the patient. The patient was brought to the procedure room and was placed in the prone position on the operating room table. A pillow was placed under the lower abdomen. The anesthesia was started as mentioned above and monitoring was done with noninvasive blood pressure cuff, EKG and pulse oximetry. The skin preparation was done with ChloraPrep, and draping was done in usual sterile fashion. Sterile technique was observed throughout the procedure. The right sacroiliac joint was identified under fluoroscopy then the anterior and posterior joint lines were aligned by tilting the C-arm to the contralateral side and inferior one third of this joint line was the target of this injection. I used 22-gauge 3-1/2 inch Quincke spinal needle to go through the skin after localizing it with lidocaine 1% and into the sacroiliac joint under fluoroscopic guidance. I then injected Kenalog 20 mg +1.5 mL of Marcaine 0.5% to a total volume of 2.5 mL. Then the left side was done in the same manner using 20 mg of Kenalog and 1.5 mL of Marcaine 0.5%. patient tolerated the procedure well. Patient then was transferred to PACU in stable condition
--- NOTE | 2025-02-03 10:10 | FL ---
EXAMINATION TYPE: FL guided pain mgmt statistic DATE OF EXAM: 02/03/2025 10:08 AM COMPARISON: Pre Operative Images if available both CT/MRI or plain film CLINICAL INDICATION: Male, 75 years old with history of SI JOINT INJECTION; TECHNIQUE: FL guided pain mgmt statistic, multiple fluoroscopic images provided for procedure. DAP: 0.55305 mGym2 Gycm2 uGym2 cGycm2 or equivalent. FINDINGS: Fluoroscopic images during injection for pain management demonstrate multilevel degeneration changes throughout the sacroiliac joints. No evidence for fracture. No acute process identified. IMPRESSION: 1. No evidence for intraoperative complication. 2. Please see the operative/procedural note for further details. [facility], , 02/03/2025 10:08 AM
[2025-02-03 10:32] VITALS: BP 148/91; PULSE 83; RESP 18
== END 2025-02-03 10:39 | disposition home or self-care (01) ==
LOC: ORPAIN 08:39
PROVIDERS: ATTEND Anesthesiology
DX: M46.1 Sacroiliitis, not elsewhere classified (principal); M53.3 Sacrococcygeal disorders, not elsewhere classified; I48.91 Unspecified atrial fibrillation; Z79.82 Long term (current) use of aspirin; Z88.8 Allergy status to other drugs, medicaments and biological substances
CPT/HCPCS: 27096; J3301; J2795

== ENCOUNTER → 2025-02-23 | Outpatient (CLI) | payer BC ==
[2025-02-23 10:11] VITALS: BP 115/71; PULSE 93; RESP 18
--- NOTE | 2025-02-23 13:16 | P.PAINPG ---
Objective - Vital Signs Vital signs: Vital Signs Temp Pulse 93 02/23/25 10:05 Resp 18 02/23/25 10:05 BP 115/71 02/23/25 10:05 Pulse Ox 98 02/23/25 10:05 FiO2 Intake & Output 02/22/25 02/23/25 02/23/25 18:59 06:59 18:59 Weight 107.501 kg PQRS Measure Charge Sheet Mode of Arrival: Ambulatory Comment: A 75 yr old male with a history of severe and chronic LBP > 5 yrs secondary to radiculopathy, lumbar spondylosis with facet arthropathy, BL Sacroiliitis presents today for evaluation s/p BL SI #1. Pt states he experienced 85% pain x 3 wks s/p procedure. Pain level is currently at 3 /10 in intensity, localized in the lumbosacral spine, predominantly axial, intermittent, sore in character w radiation of pain to the buttocks. Pain is provoked with standing/ walking/ sitting for periods > 20 min. Pain is alleviated with PT x 7 wk which he is currently in, massage therapy semi monthly x 1 mo w last visit in Aug 2024, heat, ice, medications, topical, physician guided home exercise regimen since surgery in Jul 2024, repositioning and rest. Chiropractic treatments are contraindicated since L3 kyphoplasty in Jul 2024. He was prescribed Eliquis from Dr Schawb "a couple months ago" but states he is not taking it due to having success with the MAZE procedure. Interventional procedures include L3 Kyphoplasty (2024), BL RFA L3-L5 x1 (11/21), BL SI x1 (01/27/25) Medications include Celebrex, Tyl, Cannabis. Hx of Heavy ETOH use Patient denies any side effects of the medication(s), denies excessive drowsiness or sleepiness, denies suicidal ideation and reports that the current pain medication is helping to control the pain and improve activities of daily living. Patient denies any motor or sensory deficits. Patient denies any fever or night sweats, denies any change in the bowel movements or urination. Physical Examination: -Constitutional: Cooperative. Not in acute distress . -HEENT: Neck is supple. No lymphadenopathy. No thyromegaly. Normal thyroid size. Eyes: No ptosis , no icterus, no photophobia. ENT: No auditory deficits. Normal oropharynx. No Thrush. - Respiratory: Chest clear to auscultations bilaterally. No wheezing. No rhonchi. - Cardiovascular: Regular rate and rhythm. S1 / S2 , no S3 , no S4. - Gastrointestinal: Abdomen soft no tenderness. Bowel sounds positive in all four quadrants. No organomegaly. - Genitourinary: Deferred. - Neurologic: Cranial nerve II to XII intact. No focal neurological deficits. - Psychatric: Alert & oriented x 3. Matching mood & appropriate affect. Judgment and insight intact. - Lymphatic: No Lymphadenopathy. - Musculoskeletal: Cervical spine: Muscle bulk/ tone/ strength in the bilateral upper extremities normal. Facet loading test cervical area positive. Lumbar spine: +Incisional scar intact Motor bulk/ tone/ strength lower extremities , thigh and legs : 5/5 Deep tendon reflexes : Normal Knee Jerk. Normal Ankle Jerk . Vertebral body tenderness to palpation over L5 Lumbar Facet Loading Test positive BL L4-L5, L5-S1 Straight Leg Raise: positive at 30 degrees right side/ left side Gaenslen's Test positive Sacral spine : Severe tenderness over the Sacroiliac joint: right side / left side Range of motion: Flexion of the lumbar spine <60 degrees Range of motion: Extension of the lumbar spine <20 degrees Gaenslen's Test positive BL Jayjay test: positive right side / left side BL positive Sacral Thrust test Imaging: MRI non contrast of the lumbar spine from 09/16/24 reviewed Assessment and plan: Chronic LBP secondary to L3 kyphoplasty, radiculopathy , lumbar spondylosis with facet arthropathy without myelopathy, BL Sacroiliitis Recommendation of follow up w orthopedic surgeon to explore treatment options. May benefit from BRENDA L4-L5 but also has stenosis so surgery is an option. Risks, benefits of procedure discussed and pt verbalized understanding. All patient questions answered . I have spent 31 minutes on patient care today. Dr Bullock was available by phone for the evaluation of this patient. The time was used to review the medical records including relevant urine studies and Prescription history (MAPs), review of the available imaging, evaluation and examination of the patient, coordination of care with the medical staff and if applicable referring physicians, as well as creation of the medical record - Pain Location Lower Back Non-Pharmacological Interventions: Heat, Ice Pharmacological Interventions: PRN Medication PQRS Narrative: Smoking Status Former smoker Blood Pressure 115/71 Pain Intensity [Lower Back] 3 Scale Used Numeric (1 - 10) Hx Alcohol Use (MH) Yes Home Medications: Ambulatory Orders Omeprazole 20 mg PO DAILY 03/23/19 buPROPion HCL [Wellbutrin XL] 150 mg PO BID 03/23/19 Cholecalciferol (Vitamin D3) [Vitamin D3] 5,000 unit PO DAILY 04/23/19 Multivitamins, Thera [Multivitamin (formulary)] 1 tab PO DAILY 04/23/19 Magnesium Oxide [Richardson] 500 mg PO WESA 12/29/19 Cyclobenzaprine [Flexeril] 10 mg PO DAILY PRN 07/18/21 Melatonin [Melatonin Tr] 20 mg PO HS 07/18/21 valACYclovir HCL [Valtrex] 50 mg PO DAILY PRN 07/18/21 Aspirin 81 mg PO HS 09/11/23 Losartan [Cozaar] 12.5 mg PO DAILY 08/12/24 Dofetilide [Tikosyn] 500 mcg PO Q12HR 10/24/24 DULoxetine HCL [Cymbalta] 20 mg PO DAILY 12/08/24 Controlled Substance Measures - Controlled Substance Measures Is patient prescribed a controlled substance at discharge?: No
== END ==
LOC: PNWHC3 09:57
PROVIDERS: ATTEND Specialist
DX: M47.26 Other spondylosis with radiculopathy, lumbar region (principal); M46.1 Sacroiliitis, not elsewhere classified; F12.90 Cannabis use, unspecified, uncomplicated; Z98.890 Other specified postprocedural states; Z91.048 Other nonmedicinal substance allergy status; Z87.891 Personal history of nicotine dependence
CPT/HCPCS: 99212